=== PATIENT | female | born 2005 | race Caucasian/White ===

== ENCOUNTER 2024-06-21 15:24 | Emergency (ER) | payer OTHER, SELFPAY ==
[2024-06-21 15:28] VITALS: BP 127/84; PULSE 71; TEMP 36.8; O2SAT 98; BMI 38.3
--- NOTE | 2024-06-21 15:39 | XR_ITS ---
The [address] [address] Patient Name: GUERDA MULLER MRN: [id number] date: 2005 Sex: F Assigned Patient Location: ER Current Patient Location: ED.MAIN Accession/Order Number: [id number] Exam Date: 06/21/2024 15:43 Report Date: 06/21/2024 16:20 At the request of: SIMON WADDELL Procedure: XR thoracic spine 2V EXAMINATION: XR thoracic spine 2V HISTORY: Atraumatic pain COMPARISON: No relevant comparison available. FINDINGS: BONES: No significant spondylosis, scoliosis, fracture, or visible bony lesion. DISC SPACES: No significant disc height narrowing, subluxation, or endplate abnormality. PARASPINOUS: Negative. No paraspinous abnormality is seen. OTHER: Negative. XR/XR thoracic spine 2V IMPRESSION: 1. No abnormal or suspicious findings to account for patient's symptoms. Electronically authenticated by: BREANNA PITTMAN Date: 06/21/2024 16:20
--- NOTE | 2024-06-21 15:39 | ED_ITS ---
HPI HPI - Back Pain/Injury General Chief Complaint: Back Pain/Injury Stated Complaint: BACK PAIN Time Seen by Provider: 06/21/24 15:28 Source: patient Mode of arrival: walk-in Limitations: no limitations History of Present Illness HPI Narrative: 19-year-old female presents for upper back pain. It is near the midline but just to the right of it. She has had this for several days and she attributes it to the job that she is working at and has been for 2 months. She is a baker doughnut. There was no specific injury such as a fall. No weakness or numbness. Related Data Home Medications ?Medication ?Instructions ?Recorded ?Confirmed escitalopram oxalate 20 mg tablet 20 mg PO DAILY 06/21/24 06/21/24 (Lexapro) lamotrigine 200 mg tablet 200 mg PO DAILY 06/21/24 06/21/24 (Lamictal) methocarbamol 750 mg tablet mg 06/21/24 quetiapine 50 mg tablet (Seroquel) 50 mg PO DAILY 06/21/24 06/21/24 Previous Rx's ?Medication ?Instructions ?Recorded methocarbamol 500 mg tablet 500 mg PO Q8H PRN pain #20 tabs 06/21/24 Allergies Allergy/AdvReac Type Severity Reaction Status Date / Time No Known Drug Allergies Allergy Verified 06/21/24 15:30 Opioid HPI Opioid Management Most Recent Opioid Data: No Data to Display Review of Systems ROS Narrative A ten point review of systems is negative except as noted above. PFSH PFSH Social History Little interest or pleasure in doing things: not at all Feeling down, depressed, or hopeless: not at all Exam Narrative Exam Narrative: Nurses note and vital signs reviewed and patient is not hypoxic. General: The patient appears in no apparent distress. Skin: Warm, dry, no pallor noted. There is no rash noted. Head: Normocephalic, atraumatic Eye: Normal conjunctiva, no drainage Ears, Nose, Mouth, and Throat: oral mucosa is moist. Nares patent. Cardiovascular: Regular Rate and Rhythm Respiratory: Patient is in no distress, no accessory muscle use, lungs are clear to auscultation, no wheezing, rales or rhonchi Back: No tenderness in the cervical or lumbar spines. The patient has some tenderness in the upper thoracic region, immediately to the right of midline. No bruise or rash present. Right shoulder is nontender and has full range of motion. GI: Soft and nontender Musculoskeletal: The patient has no evidence of calf tenderness, no pitting edema, symmetrical pulses noted bilaterally Neurological: A&O, normal speech Psychiatric: Cooperative Constitutional Vital Signs, click to edit/add: Last Vital Signs Temp 98.3 F 06/21/24 15:28 Pulse 71 06/21/24 15:28 Resp 18 06/21/24 15:28 BP 127/84 06/21/24 15:28 Pulse Ox 98 06/21/24 15:28 O2 Del Method Room Air 06/21/24 15:28 Course Vital Signs Vital signs: Vital Signs Temperature 98.3 F 06/21/24 15:28 Pulse Rate 71 06/21/24 15:28 Respiratory Rate 18 06/21/24 15:28 Blood Pressure 127/84 06/21/24 15:28 Pulse Oximetry 98 06/21/24 15:28 Oxygen Delivery Method Room Air 06/21/24 15:28 Temperature 98.3 F 06/21/24 15:28 Pulse Rate 71 06/21/24 15:28 Respiratory Rate 18 06/21/24 15:28 Blood Pressure 127/84 06/21/24 15:28 Pulse Oximetry 98 06/21/24 15:28 Oxygen Delivery Method Room Air 06/21/24 15:28 MDM - Back Pain/Injury MDM Narrative Medical decision making narrative: X-rays per radiologist showed no acute findings. My clinical impression is that she has muscular pain and she will be treated symptomatically. Treatment diagnosis and follow-up were discussed with the patient. Differential Diagnosis Differential diagnosis: Likely other (Muscle pain, compression fracture) Imaging Data Thoracic x-ray: Radiologist's impression: ITS Impressions Thoracic Spine X-Ray 06/21/24 15:39 IMPRESSION: 1. No abnormal or suspicious findings to account for patient's symptoms. Electronically authenticated by: BREANNA PITTMAN Date: 06/21/2024 16:20 Discharge Plan Discharge Chief Complaint: Back Pain/Injury Clinical Impression: Back pain, thoracic Patient Disposition: Home, Self-Care Time of Disposition Decision: 16:34 Condition: Good Mode of Transportation: Private Vehicle Prescriptions / Home Meds: New methocarbamol 500 mg tablet 500 mg PO Q8H PRN (Reason: pain) Qty: 20 0RF No Action quetiapine [Seroquel] 50 mg tablet 50 mg PO DAILY escitalopram oxalate [Lexapro] 20 mg tablet 20 mg PO DAILY lamotrigine [Lamictal] 200 mg tablet 200 mg PO DAILY methocarbamol 750 mg tablet Print Language: [place] Instructions: Thoracic Pain (ED) Referrals: Kylee Segovia NP [Primary Care Provider] - 1 week
== END 2024-06-21 16:52 | disposition home or self-care (01) ==
PROVIDERS: Emergency Provider Emergency Medicine; PCP Nurse Practitioner Family
DX: M54.6 Pain in thoracic spine (principal)
CPT/HCPCS: 72070; 99283

== ENCOUNTER 2025-04-03 19:41 | Emergency (ER) | payer OTHER, SELFPAY ==
--- OUTSIDE RECORDS SUMMARY | 2024-10-20 12:30 | XMS_ITS ---
Author Organization [facility] Address [address] [place] [address] Care Team Providers Care Test Lab Technician Name Role Phone Sherman Halle Primary Care Provider REASON FOR VISIT MAT Encounters Encounter Location Date Provider Diagnosis [facility] [address] [facility] [place] [address] 10/20/2024 Halle Whitaker Plan Of Treatment No Information Progress Notes * GUERDA MULLER LDOB:[birth year] (20 yo F)Acc No.[id number]:10/20/2024 Patient: Joan WARE GUERDA Corona Provider: Claudio Whitaker CNP :2005 A ge:19 Y S ex:Female Date:10/20/2024 Address:[address] [place], [place] [id number] Subjective: * Chief Complaints: * 1 . MAT. * Medical History: Objective: * Vitals: Assessment: Plan: * Treatment: * Images: * Electronic signature of NATALY Kee on 04/03/2025 at 07:51 PM EDT Sign off status: Pending * Provider: Claudio Whitaker CNP Date: 10/20/2024 Generated for Printi ng/Facecig/eTransmitting on: 0 04/03/2025 07:51 PM EDT
--- OUTSIDE RECORDS SUMMARY | 2025-01-18 10:00 | XMS_ITS ---
Author Organization [facility] es Address [address] [place] [address] Care Team Providers Care Hand Packer/Packager Name Role Phone Halle Whitaker Primary Care Provider REASON FOR VISIT Patient is here today for a medication f/u. Her last OV was 09/2024. Medications Medication SIG (Take, Route, Frequency, Duration) Notes Start Date End Date Status Loratadine 10 MG TAKE 1 TABLET BY MOUTH EVERY DAY FOR 90 DAYS Orally Once a day; Duration: 30 days bridge script until she can see PCP Active hydrOXYzine Pamoate 25 MG 1 capsule Orally every 6 hours; Duration: 30 days As needed for anxiety 01/14/2023 Active Lexapro 10 MG 1 tablet Orally Once a day; Duration: 90 days 09/22/2024 Active QUEtiapine Fumarate 25 MG 1 tablet at bedtime Orally Once a day; Duration: 30 days 08/08/2023 Active lamoTRIgine 200 MG 1 tablet Orally Once a day; Duration: 30 days 12/24/2023 Active tiZANidine HCl 4 MG 1 tablet at bedtime as needed Orally at bedtime; Duration: 90 days Active Fluticasone Propionate 50 MCG/ACT 1 spray in each nostril Nasally Once a day; Duration: 90 day(s) Active Omeprazole 40 MG TAKE 1 CAPSULE BY MOUTH 30 MINUTES BEFORE MORNING MEAL EVERY DAY FOR 90 DAYS; Duration: 30 days Active Nexplanon Active Encounters Encounter Location Date Provider Diagnosis [facility] [address] [place] [address] 01/18/2025 Halle Whitaker Plan Of Treatment No Information Progress Notes * GUERDA MULLER LDOB:[birth year] (20 yo F)Acc No.[id number]:01/18/2025 Patient: GUERDA URBINA Provider: Claudio Whitaker CNP :2005 A ge:19 Y S ex:Female Date:01/18/2025 Address:[address] [place], [place] [id number] Subjective: * Chief Complaints: * 1 . Patient is here today for a medication f/u. Her last OV was 09/2024.. * Medical History: B IPOLAR, Pcos, Esophageal reflux, Anxiety, Insomnia, Seasonal allergies. * Medications: T halie Nexplanon , Taking Fluticasone Propionate 50 MCG/ACT Suspension 1 spray in each nostril Nasally Once a day , Taking Omeprazole 40 MG Capsule Delayed Release TAKE 1 CAPSULE BY MOUTH 30 MINUTES BEFORE MORNING MEAL EVERY DAY FOR 90 DAYS , Taking tiZANidine HCl 4 MG Tablet 1 tablet at bedtime as needed Orally at bedtime , Taking Loratadine 10 MG Tablet TAKE 1 TABLET BY MOUTH EVERY DAY FOR 90 DAYS Orally Once a day , Notes to Pharmacist: bridge script until she can see PCP, Taking QUEtiapine Fumarate 25 MG Tablet 1 tablet at bedtime Orally Once a day , Taking lamoTRIgine 200 MG Tablet 1 tablet Orally Once a day , Taking hydrOXYzine Pamoate 25 MG Capsule 1 capsule Orally every 6 hours As needed for anxiety, Taking Lexapro 10 MG Tablet 1 tablet Orally Once a day Objective: * Vitals: Assessment: Plan: * Treatment: * Images: * Electronic signature of NATALY Kee on 04/03/2025 at 07:51 PM EDT Sign off status: Pending * Provider: Claudio Whitaker CNP Date: 01/18/2025 Generated for Kojo benedict/Win/Nida on: 04/03/2025 07:51 PM EDT
--- OUTSIDE RECORDS SUMMARY | 2025-01-28 11:15 | XMS_ITS ---
Author Organization [facility] Address [address] [place] [address] Care Team Providers Care Computer Forensics Examiner Name Role Phone Halle Whitaker Primary Care Provider REASON FOR VISIT BH F/U Encounters Encounter Location Date Provider Diagnosis [address] [place] [address] 01/28/2025 Halle Whitaker Plan Of Treatment No Information Progress Notes * GUERDA MULLER LDOB:[birth year] (20 yo F)Acc No.[id number]:01/28/2025 Behavioral Health Patient: Joan WAREGUERDA Provider: Claudio Whitaker CNP :2005 A ge:19 Y S ex:Female Date:01/28/2025 Address:[address] [place], [place] [id number] Subjective: * Chief Complaints: * 1 . BH F/U. * Medical History: Objective: * Vitals: Assessment: Plan: * Treatment: * Images: * Electronic signature of NATALY Kee on 04/03/2025 at 07:52 PM EDT Sign off status: Pending * Provider: Claudio Whitaker CNP Date: 01/28/2025 Generated for Printi ng/Faxing/eTransmitting on: 0 04/03/2025 07:52 PM EDT
[2025-04-03 19:44] VITALS: BP 121/91; PULSE 82; TEMP 37.5; O2SAT 96; BMI 42.5
[2025-04-03 19:49] VITALS: O2SAT 96
--- OUTSIDE RECORDS SUMMARY | 2025-04-03 19:51 | XMS_ITS | CCD ---
Author Organization [facility] [employer] Care Team Providers Care Supervisor Sleeping Bag Department Name Role Phone ESTELA MIMS Primary Care Unavailable ESTELA MIMS Admitting Unavailable ESTELA MIMS Attending Unavailable ESTELA MIMS Consulting Unavailable DIANNA, DR ZALDIVAR Attending Unavailable DIANNA, DR ZALDIVAR Consulting Unavailable DIANNA, DR ZALDIVAR Admitting Unavailable ESTELA MIMS Primary Care Unavailable ESTELA MIMS Primary Care Unavailable DIANNA, DR ZALDIVAR Attending Unavailable DIANNA, DR ZALDIVAR Admitting Unavailable PAY, DR FARFAN Attending Unavailable ESTELA MIMS Primary Care Unavailable PAY, DR FARFAN Admitting Unavailable Austin Katz Unavailable [facility] Primary Care Provider DO Mia Arrieta Emergency Provider [facility] Primary Care Provider 1( [phone] DO Ashley Morales Emergency Provider MD Ramiro Castro Admit Provider MD Ramiro Castro Attending Provider MIA JARA Primary Care Physician [facility] Primary Care Provider DO Manny Brooke Emergency Provider [facility] Primary Care Provider 1( [phone] DO Manny Brooke Emergency Provider DO Mia Arrieta Emergency Provider MD Maurilio Hackett Admit Provider MD Maurilio Hackett Attending Provider FRANCI ESCALANTE Primary Care Physician [phone] Tenzin Roberts Attending Unavailable Tenzin Roberts Attending Unavailable [facility] Primary Care Provider MD Jose Márquez Jr Emergency Provider DO David Nicole Emergency Provider Karen espino [facility] Primary Care Provider SEVERO Cohen Emergency Provider Unallocated MD [place] Provider Primary Care Provi dominic Elmo Marshall DO Unavailable [phone] Lorene Escalante DO Unavailable [phone] ARCENIO SHAH Attending Unavailable ELMO MARSHALL Attending Unavailable Elmo Marshall DO Unavailable [phone] [facility] Primary Care Provider Nic Whittaker APRN Emergency Provider David Nicole Attending Unavailable [facility] Primary Care Unavaila [facility] David Nicole Admitting Unavailable Primitivo Cohen Admitting Unavailable Primitivo Cohen Attending Unavailable [facility] Nic Sandoval Admitting Unavailable Nic Whittaker Attending Unavailable Medications Current Medications Medication Drug Class(es) Dates Sig (Normalized) Sig (Original) [id number] 200 actuat albuterol 0.09 mg/actuat metered dose inhaler (4 sources) beta2-Adrenergic Agonist Start: 04-17-2023 take 2 puff(s) by inhalation every four hours for wheezing albuterol HFA 90 mcg/act inhaler Indications: COVID-19 Inhale 2 puffs every 4 (four) hours if needed for wheezing. 18 g 11 04/17/2023 Active amoxicillin 875 mg / clavulanate 125 mg oral tablet (1 source) Penicillin-class Antibacterial Start: 12-13-2021 take 1 tablet by mouth every twelve hours Amoxicillin-Pot Clavulanate 875-125 MG 1 tablet Orally every 12 hrs for 10 day(s) December, Active escitalopram 10 mg oral tablet (19 sources) Serotonin Reuptake Inhibitor Start: 02-17-2024 take 1 tablet by mouth once daily Escitalopram Oxalate 10 mg tablet Active 10 MG PO Daily February 17, 2024 12:00am Start: 06-10-2023 End: 12-29-2023 take 2 tablets by mouth once daily Escitalopram Oxalate 10 mg tablet Discontinued 20 MG PO Daily June 10, 2023 4:29pm December 29, 2023 10:11pm Start: 06-10-2023 End: 12-29-2023 take 20 mg by mouth once daily Escitalopram Oxalate Di scontinued 20 MG PO Daily June 10, 2023 3:29pm December 29, 2023 9:11pm Start: 12-20-2022 End: 06-10-2023 take 1 tablet by mouth once daily Escitalopram Oxalate 10 mg Tablet Discontinued 10 MG PO Daily December 20, 2022 12:00am June 10, 2023 4:29pm take 1 tablet by robyn th once daily escitalopram (Lexapro) 20 MG tablet TAKE 1 TABLET BY MOUTH EVERY DAY FOR 30 DAYS Active famotidine 20 mg oral tablet (1 source) Histamine-2 Receptor Antagonist Start: 07-13-2023 End: 07-23-2023 take 1 tablet by mouth twice daily Pepcid 20 mg Tab 20 mg = 1 tab(s), Oral, BID, X 10 day(s), # 20 tab(s), Refills(s) 0, Pharmacy: [facility]/pharmacy #[id number], 160, cm, 07/12/23 23:02:00 EST, Height/Length Dosing, 115.5, kg, 07/12/23 23:02:00 EST, Weight Dosing Start Date: 07/13/23 Stop Date: 07/23/23 Status: Ordered fluticasone propionate 0.05 mg/actuat metered dose nasal spray (9 sources) Corticosteroid Start: 02-02-2022 Fluticasone Propionate Active INTRANASAL February 02, 2022 10:04am Start: 02-02-2022 End: 06-10-2023 Fluticasone Propionate 50 mc g/actuation spray,suspension Discontinued 1 SPRAY INTRANASAL Daily February 02, 2022 12:00am June 10, 2023 4:29pm hydrOXYzine pamoate 25 mg oral capsule (6 sources) Antihistamine Start: 12-29-2023 take 1 capsule by mouth every six hours as needed for nausea and vomiting Hydroxyzine Pamoate 25 mg capsule Active 25 MG PO Every 6 hours as needed for nausea and vomiting December 29, 2023 12:00am Start: 01-14-2023 End: 10-30-2024 hydrOXYzine pamoate (Vistari l) 25 MG capsule 1 drop 01/14/2023 10/30/2024 Discontinued lamoTRIgine 100 mg oral tablet (20 sources) Mood Stabilizer, Anti-epileptic Agent Start: 12-29-2023 take 1 tablet by mouth once daily Lamotrigine (Lamictal) 100 mg tablet Active 150 MG PO Daily December 29, 2023 12:00am FreeTextSi tablet Orally Once a day; Note: Source Status: Taking; Provider: Earnest Avila ( ) Start: 12-16-2022 Lamotrigine Ac tive MG TABLET December 16, 2022 12:00am Start: 02-02-2022 Lamotrigine Ac tive MG TABLET February 02, 2022 10:04am Start: 08-22-2020 End: 12-29-2023 take 1 tablet by mouth at bedtime Lamotrigine 200 mg tablet Discontinued 200 MG PO Bedtime December 16, 2022 12:00am December 29, 2023 10:11pm take 1 tablet by robyn th every twenty-four hours LaMICtal 100 MG 1 tablet Orally Once a day Active lithium carbonate 450 mg extended release oral tablet (2 sources) Start: 08-22-2020 take 1 tablet by mouth once daily in the morning, then take 2 tablets by mouth once daily lithium 450 mg oral tablet, extended release See Instructions, 1 daily am and 2 daily supper, # 270 tab(s), Refills(s) 3, Pharmacy: [facility]/pharmacy #[id number], 160, cm, 08/22/20 15:09:00 EST, Height/Length Dosing, 95.5, kg, 08/22/20 15:09:00 EST, Weight Dosing Start Date: 08/22/20 Status: Ordered loratadine 10 mg oral tablet (9 sources) Start: 02-02-2022 Loratadine Act yessenia MG TABLET February 02, 2022 10:04am Start: 02-02-2022 End: 12-29-2023 take 1 tablet by mouth once daily as needed Loratadine 10 mg tablet Discontinued 10 MG PO Daily as needed for Allergic Symptoms February 02, 2022 12:00am December 29, 2023 10:11pm omeprazole 40 mg delayed release oral capsule (15 sources) Proton Pump Inhibitor Start: 06-09-2024 take 1 capsule by mouth once daily Omeprazole 40 mg capsule,delayed release(DR/EC) Active 40 MG PO Daily June 09, 2024 1:00am Start: 06-10-2023 End: 12-29-2023 take 20 mg by mouth once daily Omeprazole Discontinued 20 MG PO Daily June 10, 2023 12:00am December 29, 2023 9:11pm Start: 02-02-2022 Omeprazole Act yessenia MG February 02, 2022 10:04am Start: 02-02-2022 End: 06-10-2023 take 1 capsule by mouth once daily Omeprazole 40 mg capsule,delayed release(DR/EC) Discontinued 40 MG PO Daily February 02, 2022 12:00am June 10, 2023 4:58pm QUEtiapine 100 mg oral tablet (20 sources) Atypical Antipsychotic Start: 12-29-2023 take 1 tablet by mouth once daily at bedtime Quetiapine (Seroquel) 100 mg tablet Active 100 MG PO Daily at bedtime December 29, 2023 12:00am FreeTextSi tablet at bedtime Orally Once a day; Note: Source Status: Taking; Provider: Earnest Avila ( ) Start: 12-16-2022 End: 12-20-2022 take 1 tablet by mouth at bedtime Quetiapine 50 mg tablet Discontinued 50 MG PO Bedtime December 16, 2022 12:00am December 20, 2022 10:27am Start: 02-02-2022 End: 12-16-2022 Quetiapine 300 mg tablet Discontinued MG TABLET February 02, 2022 12:00am December 16, 2022 5:05pm Start: 02-02-2022 End: 12-16-2022 Quetiapine Discontinued MG T ABLET February 01, 2022 11:00pm December 16, 2022 4:05pm Start: 08-22-2020 take 2 tablets by mo ut at bedtime SEROquel 50 mg Tab 100 mg = 2 tab(s), Oral, Bedtime, # 180 tab(s), Refills(s) 1, Pharmacy: [facility]/pharmacy #[id number], 160, cm, 08/22/20 15:09:00 EST, Height/Length Dosing, 95.5, kg, 08/22/20 15:09:00 EST, Weight Dosing Start Date: 08/22/20 Status: Ordered take 1 tablet by robyn th every twenty-four hours SEROquel 100 MG 1 tablet at bedtime Orally Once a day Active Zofran ODT 4 mg Tab-Dis (1 source) Start: 07-13-2023 take 1 tablet by mouth every eight hours as needed for nausea Zofran ODT 4 mg Tab-Dis 4 mg = 1 tab(s), Oral, q8hr, PRN Nausea/Vomiting, # 20 tab(s), Refills(s) 0, Pharmacy: [facility]/pharmacy #[id number], 160, cm, 07/12/23 23:02:00 EST, Height/Length Dosing, 115.5, kg, 07/12/23 23:02:00 EST, Weight Dosing Start Date: 07/13/23 Status: Ordered Completed/Discontinued Medications Medication Drug Class(es) Dates Sig (Normalized) Sig (Original) amoxicillin 875 mg oral tablet (4 sources) Penicillin-class Antibacterial Start: 12-29-2023 End: 02-17-2024 take 1 tablet by mouth twice daily Amoxicillin 875 mg tablet Discontinued 875 MG PO Twice daily 23 05December 29, 2023 12:00am February 17, 2024 7:13pm ARIPiprazole 5 mg oral tablet (5 sources) Atypical Antipsychotic Start: 06-14-2023 End: 12-29-2023 take 1 tablet by mouth once daily at bedtime Aripiprazole 5 mg Tablet Discontinued 5 MG PO Daily at bedtime June 14, 2023 1:00am December 29, 2023 10:11pm benzonatate 100 mg oral capsule (4 sources) Non-narcotic Antitussive Start: 12-29-2023 End: 02-17-2024 take 1 capsule by mouth three times daily as needed for cough Benzonatate 100 mg capsule Discontinued 100 MG PO Three times daily as needed for cough December 29, 2023 12:00am February 17, 2024 7:13pm cephalexin 500 mg oral capsule (10 sources) Cephalosporin Antibacterial Start: 08-09-2023 End: 12-29-2023 take 1 capsule by mouth twice daily Cephalexin 500 mg capsule Discontinued 500 MG PO Twice daily 14 August 09, 2023 1:00am December 29, 2023 10:11pm Start: 06-14-2023 End: 12-29-2023 take 1 capsule by mouth every twelve hours Cephalexin 500 mg Capsule Discontinued 500 MG PO Every 12 hours 10 June 14, 2023 1:00am December 29, 2023 10:11pm cholecalciferol 0.025 mg oral tablet (5 sources) Vitamin D Start: 06-14-2023 End: 12-29-2023 take 1 tablet by mouth once daily Cholecalciferol (Vitamin D3) 25 mcg (1,000 unit) Tablet Discontinued 50 MCG PO Daily 60 June 14, 2023 1:00am December 29, 2023 10:11pm cyclobenzaprine hydrochloride 5 mg oral tablet (7 sources) Muscle Relaxant Start: 05-16-2023 End: 06-10-2023 take 1 tablet by mouth every eight hours Cyclobenzaprine 5 mg tablet Discontinued 5 MG PO Q8H May 16, 2023 12:00am June 10, 2023 3:11pm dicyclomine hydrochloride 20 mg oral tablet (9 sources) Anticholinergic Start: 02-02-2022 End: 12-16-2022 take 1 tablet by mouth three times daily as needed for pain Dicyclomine 20 mg tablet Discontinued 20 MG PO Three times daily as needed for pain February 02, 2022 12:00am December 16, 2022 5:05pm ibuprofen 600 mg oral tablet (11 sources) Nonsteroidal Anti-inflammatory Drug Start: 12-29-2023 End: 01-09-2025 take 1 tablet by mouth every eight hours as needed for pain Ibuprofen 600 mg tablet Discontinued 600 MG PO Q8H as needed for pain December 29, 2023 12:00am January 09, 2025 2:17pm Start: 05-16-2023 End: 06-10-2023 take 1 tablet by mouth every eight hours as needed for pain Ibuprofen 800 mg tablet Discontinued 800 MG PO Q8H as needed for pain May 16, 2023 12:00am June 10, 2023 4:29pm ketorolac tromethamine 10 mg oral tablet (5 sources) Nonsteroidal Anti-inflammatory Drug, Cyclooxygenase Inhibitor Start: 08-09-2023 End: 12-29-2023 take 1 tablet by mouth every eight hours as needed for pain Ketorolac 10 mg tablet Discontinued 10 MG PO Q8H as needed for pain August 09, 2023 1:00am December 29, 2023 10:11pm lidocaine 0.05 mg/mg medicated patch (9 sources) Antiarrhythmic, Amide Local Anesthetic Start: 06-09-2024 End: 01-09-2025 apply 1 dose topically every twenty-four hours Lidocaine 5 % adhesive patch,medicated Discontinued 1 PATCH TOPICAL Q24H June 09, 2024 1:00am January 09, 2025 2:17pm leave on most painful area for up to 12 hrs Start: 05-16-2023 End: 06-10-2023 apply 1 dose topically once daily Lidocaine (Lidoderm) 5 % adhesive patch,medicated Discontinued 1 PATCH TOPICAL Daily May 16, 2023 12:00am June 10, 2023 4:29pm leave on most painful area for up to 12 hrs loperamide hydrochloride 2 mg oral capsule (3 sources) Opioid Agonist Start: 02-18-2024 End: 06-09-2024 take 1 capsule by mouth four times daily as needed Loperamide (Imodium A-D) 2 mg capsule Discontinued 2 MG PO Four times daily as needed for loose stool 21 12February 18, 2024 12:00am June 09, 2024 7:57pm methocarbamol 750 mg oral tablet (2 sources) Muscle Relaxant Start: 06-09-2024 End: 01-09-2025 take 1 tablet by mouth three times daily Methocarbamol 750 mg tablet Discontinued 750 MG PO Three times daily June 09, 2024 1:00am January 09, 2025 2:17pm methylPREDNISolone 4 mg oral tablet (2 sources) Corticosteroid Start: 06-09-2024 End: 01-09-2025 take 1 tablet by mouth once Methylprednisolone (Medrol (Epifanio)) 4 mg tablets,dose pack Discontinued 0 PO .COMPLEX June 09, 2024 1:00am January 09, 2025 2:17pm orally per package directions nitrofurantoin, macrocrystals 25 mg / nitrofurantoin, monohydrate 75 mg oral capsule (2 sources) Nitrofuran Antibacterial Start: 12-22-2024 End: 12-29-2024 take 1 capsule by mouth in the morning nitrofurantoin, macrocrystal-monohydr ate, (Macrobid) 100 MG capsule Indications: Acute cystitis without hematuria Take 1 capsule (100 mg) by mouth in the morning and 1 capsule (100 mg) before bedtime. Do all this for 7 days. 14 capsule 12/22/2024 12/29/2024 OLANZapine 5 mg oral tablet (5 sources) Atypical Antipsychotic Start: 06-14-2023 End: 12-29-2023 take 1 tablet by mouth every six hours as needed Olanzapine 5 mg Tablet Discontinued 5 MG PO Q6H as needed for Agitation June 14, 2023 1:00am December 29, 2023 10:11pm Omeprazole 20 mg Tablet,Disintegrat, Delay Rel (1 source) Start: 06-10-2023 End: 12-29-2023 take 1 tablet by mouth once daily Omeprazole 20 mg Tablet,Disintegrat, Delay Rel Discontinued 20 MG PO Daily June 10, 2023 1:00am December 29, 2023 10:11pm ondansetron 4 mg oral tablet (5 sources) Serotonin-3 Receptor Antagonist Start: 08-09-2023 End: 12-29-2023 Ondansetron Hcl 4 mg tablet Discontinued 4 MG PO every 6 to 8 hours as needed for nausea and vomiting August 09, 2023 1:00am December 29, 2023 10:11pm 24 hr paliperidone 3 mg extended release oral tablet (7 sources) Atypical Antipsychotic Start: 12-20-2022 End: 06-10-2023 take 1 tablet by mouth once daily at bedtime Paliperidone 3 mg Tablet Extended Release 24 Hr Discontinued 3 MG PO Daily at bedtime December 20, 2022 12:00am June 10, 2023 1:25pm phenazopyridine hydrochloride 200 mg delayed release oral tablet (2 sources) Start: 12-22-2024 End: 12-24-2024 take 1 tablet by mouth in the morning, then take 1 tablet by mouth in the evening, then take 1 tablet by mouth at bedtime phenazopyridine (Pyridium) 200 MG tablet Indications: Acute cystitis without hematuria Take 1 tablet (200 mg) by mouth in the morning and 1 tablet (200 mg) in the evening and 1 tablet (200 mg) before bedtime. Do all this for 2 days. 6 tablet 12/22/2024 12/24/2024 tamsulosin hydrochloride 0.4 mg oral capsule (5 sources) alpha-Adrenergic Faby Start: 08-09-2023 End: 12-29-2023 take 1 capsule by mouth once daily Tamsulosin (Flomax) 0.4 mg capsule Discontinued 0.4 MG PO Daily August 09, 2023 1:00am December 29, 2023 10:11pm tiZANidine 4 mg oral tablet (2 sources) Central alpha-2 Adrenergic Agonist Start: 06-09-2024 End: 01-09-2025 Tizanidine 4 mg tablet Discontinued 4 MG PO As Directed as needed for muscle spasticity June 09, 2024 1:00am January 09, 2025 2:18pm traZODone hydrochloride 150 mg oral tablet (20 sources) Serotonin Reuptake Inhibitor Start: 06-10-2023 End: 06-10-2023 Trazodone Discontinued MG TABLET June 10, 2023 12:00am June 10, 2023 3:29pm Start: 12-20-2022 End: 10-30-2024 Trazodone 150 mg Tablet Disc ontinued MG TABLET June 10, 2023 1:00am June 10, 2023 4:29pm Start: 12-16-2022 End: 12-20-2022 take 1 tablet by mouth at bedtime Trazodone 50 mg tablet Discontinued 50 MG PO Bedtime December 16, 2022 12:00am December 20, 2022 10:34am Problems Active Problems Problem Classification Problem Date Documented Da te Episodic/Chronic Abdominal pain (13 sources) Abdominal pain; Translations: [Unspecified abdominal pain] Onset: 07-13-2023 02-02-2022 Episodic Allergic reactions (1 source) Allergic disposition; Translations: [Allergy, unspecified, initial encounter] Onset: 12-29-2022 Episodic Calculus of urinary tract (5 sources) Kidney stone; Translations: [Calculus of kidney] 08-09-2023 Episodic Conditions associated with dizziness or vertigo (1 source) Dizziness and giddiness; Translations: [Dizziness and giddiness] Onset: 07-13-2023 Episodic Genitourinary symptoms and ill-defined conditions (6 sources) Unspecified symptoms and signs involving the genitourinary system; Translations: [Dysuria] Onset: 06-18-2021 Episodic Intestinal infection (2 sources) Viral gastroenteritis; Translations: [Viral intestinal infection, unspecified] 10-30-2024 Episodic Menstrual disorders (2 sources) Dysmenorrhea, unspecified; Translations: [Irregular menstruation, unspecified] Onset: 10-24-2020 Chronic Mood disorders (10 sources) Moderate depressed bipolar I disorder; Translations: [Bipolar I disorder] 10-05-2019 Chronic Other and unspecified benign neoplasm (3 sources) Hemangioma; Translations: [Hemangioma unspecified site] 02-18-2024 Episodic Other connective tissue disease (1 source) Myalgia, unspecified site; Translations: [MYALGIA UNSPECIFIED SITE] Onset: 06-23-2021 Episodic Other endocrine disorders (3 sources) Hypoglycemia; Translations: [Hypoglycemia, unspecified] 02-17-2024 Chronic Other gastrointestinal disorders (8 sources) Diarrhea; Translations: [Diarrhea, unspecified] 08-09-2023 Episodic Other nutritional; endocrine; and metabolic disorders (2 sources) Weight gain 10-14-2019 Episodic Other screening for suspected conditions (not mental disorders or infectious disease) (2 sources) Encounter for observation for other suspected diseases and conditions ruled out; Translations: [Encounter for observation for other suspected diseases and conditions ruled out] Onset: 02-06-2023 Episodic Other upper respiratory infections (4 sources) Sinusitis; Translations: [Chronic sinusitis, unspecified] 12-29-2023 Chronic Other upper respiratory infections (6 sources) Acute pharyngitis, unspecified; Translations: [Streptococcal pharyngitis] Onset: 12-13-2021 Resolved: 12-13-2021 Episodic Residual codes; unclassified (4 sources) Procedure and treatment not carried out due to patient leaving prior to being seen by health care provider; Translations: [PROC AND TX NOT CARRIED OUT PT LEAVE] Onset: 06-14-2021 Episodic Suicide and intentional self-inflicted injury (15 sources) Suicidal thoughts; Translations: [Suicidal ideations] 12-17-2022 Episodic Urinary tract infections (7 sources) Urinary tract infectious disease; Translations: [Urinary tract infection, site not specified] 08-09-2023 Episodic Past or Other Problems Problem Classification Problem Date Documented Da te Episodic/Chronic Immunizations and screening for infectious disease (1 source) Contact with and (suspected) exposure to other viral communicable diseases Onset: 12-13-2021 Resolved: 12-13-2021 Episodic Nausea and vomiting (4 sources) Nausea; Translations: [NAUSEA] Onset: 10-19-2020 Episodic Spondylosis; intervertebral disc disorders; other back problems (10 sources) Backache; Translations: [Dorsalgia, unspecified] Onset: 06-09-2024 05-16-2023 Episodic Results Test Name Value Interpretation Reference Range Facility Alanine aminotransferase [En zymatic activity/volume] in Serum or PlasmaOrdered By: Nic Whittaker on 01-09-2025 ALT [Catalytic activity/Vol] Alanine aminotransferase [Enzymatic activity/volume] in Serum or Plasma 7-52 [facility] Albumin [Mass/volume] in Ser um or Plasma by Bromocresol green (BCG) dye binding methoOrdered By: Nic Whittaker on 01-09-2025 Albumin BCG dye [Mass/Vol] Albumin [Mass/volume] in Serum or Plasma by Bromocresol green (BCG) dye binding metho 3.5-5.7 [facility] Alkaline phosphatase [Enzyma tic activity/volume] in Serum or PlasmaOrdered By: Nic Whittaker on 01-09-2025 ALP [Catalytic activity/Vol] Alkaline phosphatase [Enzymatic activity/volume] in Serum or Plasma High 34-104 [facility] Appearance of UrineOrdered B y: Nic Whittaker on 01-09-2025 Appearance (U) Urine appearance [facility] Aspartate aminotransferase [ Enzymatic activity/volume] in Serum or PlasmaOrdered By: Nic Whittaker on 01-09-2025 AST [Catalytic activity/Vol] Aspartate aminotransferase [Enzymatic activity/volume] in Serum or Plasma Low 13-39 [facility] Basophils Auto (Bld) [#/Vol] Ordered By: Nic Whittaker on 01-09-2025 Basophils (Bld) [#/Vol] Automated basoph il count 0.0-0.2 [facility] Basophils/100 WBC Auto (Bld) Ordered By: Nic Whittaker on 01-09-2025 Basophils/100 WBC (Bld) Automated basophil % . [facility] Bilirubin Test strip Ql (U)O rdered By: Nic Whittaker on 01-09-2025 Bilirubin Ql (U) Bilirubin.total [Presence] in Urine by Test strip Negative [facility] Bilirubin.direct [Mass/volum e] in Serum or PlasmaOrdered By: Nic Whittaker on 01-09-2025 Bilirubin.direct [Mass/Vol] Bilirubin.direct [Mass/volume] in Serum or Plasma 0.03-0.18 [facility] Bilirubin.total [Mass/volume ] in Serum or PlasmaOrdered By: Nic Whittaker on 01-09-2025 Bilirubin [Mass/Vol] Bilirubin.total [Mass/volume] in Serum or Plasma 0.3-1.[address] [facility] CT abdomen pelvis w conon CT abdomen pelvis w con [facility] Main [place] [address] [place] [address] CT Scan Report Signed Patient: Lizzie Muller MR#: [id number] : 2005 Acct:[id number] Age/Sex: 19 / F ADM Date: 01/09/25 Loc: ER Room: Type: [facility] ER Attending Dr: Copies to: Nic Whittaker APRN Ordering Provider: Nic Whittaker APRN Date of Service: 01/09/25 CT/CT abdomen pelvis w con: Abdominal Pain CT ABDOMEN AND PELVIS WITH INTRAVENOUS CONTRAST: CLINICAL HISTORY: Left-sided abdominal pain for one week, worse with bowel movements COMPARISON: 02/17/2024 TECHNIQUE: Spiral images were obtained through the abdomen and pelvis following the administration of intravenous contrast. This CT exam was performed using one or more following dose reduction techniques: Automated exposure control, adjustment of the mA and/or kV according to patient size, or use of iterative reconstruction technique. FINDINGS: Lung Bases: [No focal opacity] Organs:Liver, spleen, adrenals, kidneys, gallbladder and pancreas are unremarkable.[ GI: Mild retained stool. No bowel obstruction. Appendix is normal.[ Pelvis:[Uterus and adnexa are unremarkable. Bladder unremarkable.] Peritoneum/Retroperit oneum:No free air or free fluid. No suspicious adenopathy. Aorta unremarkable caliber.[ Abd wall/Bones:No suspicious osseous lesions.[ CT/CT abdomen pelvis w con IMPRESSION: Negative acute inflammatory process or bowel obstruction Impression dictated by: Moody Guzmán M.D. 01/09/2025 4:25 PM Dictation Location: [place] [address] Transcribed By: CHEPE 01/09/25 1625 Dictated By: Moody Guzmán MD 01/09/25 1620 Signed By: 01/09/25 1625 Normal [facility] Calcium [Mass/volume] in Ser um or PlasmaOrdered By: Nic Whittaker on 01-09-2025 Calcium [Mass/Vol] Calcium [Mass/volume ] in Serum or Plasma 8.6-10.3 [facility] Carbon dioxide, total [Moles /volume] in Serum or PlasmaOrdered By: Nic Whittaker on 01-09-2025 CO2 [Moles/Vol] Carbon dioxide, tota l [Moles/volume] in Serum or Plasma 21.0-31.0 [facility] Chloride [Moles/volume] in S katie or PlasmaOrdered By: Nic Whittaker on 01-09-2025 Chloride [Moles/Vol] Chloride [Moles/volume] in Serum or Plasma 98-107 [facility] Color Auto (U)Ordered By: Kale Whittaker on 01-09-2025 Color (U) Color of Urine by Auto Yellow [facility] Complete Blood Count Auto Di ffon 01-09-2025 Basophils (Bld) [#/Vol] 0.1 10*3/uL Normal 0.0-0.2 [facility] Comment on above: Result Comment: PERF ORMED BY: [place] [address] PATHOLOGIST SALES REPRESENTATIVE [employer] REYNA SCALES M.D. Performed By: #### C BC #### [facility] [address] [place] [address] [place] Basophils/100 WBC (Bld) 1.1 % Normal . [facility] Comment on above: Performed By: #### C BC #### [facility] [address] [place] [address] Eosinophils (Bld) [#/Vol] 0.4 10*3/uL Normal 0.0-0.45 [facility] Comment on above: Performed By: #### C BC #### [address] Eosinophils/100 WBC (Bld) 4.0 % Normal . [facility] Comment on above: Performed By: #### C BC #### [address] Erythrocyte distribution width (RBC) [Ratio] 13.7 % Normal 11.9-15.3 [facility] Comment on above: Performed By: #### C BC #### [address] Hematocrit (Bld) [Volume fraction] 40.8 % Normal 34.0-46.4 [facility] Comment on above: Performed By: #### C BC #### [address] Hemoglobin (Bld) [Mass/Vol] 13.9 g/dL Normal 11.8-15.4 [facility] Comment on above: Performed By: #### C BC #### [address] Lymphocytes (Bld) [#/Vol] 1.9 10*3/uL Normal 1.00-4.8 [facility] Comment on above: Performed By: #### C BC #### [address] Lymphocytes/100 WBC (Bld) 20.2 % Normal . [facility] Comment on above: Performed By: #### C BC #### [address] MCH (RBC) [Entitic mass] 27.9 pg Normal 24.7-34.3 [facility] Comment on above: Performed By: #### C BC #### [address] MCV (RBC) [Entitic vol] 82.1 fL Normal 80-100 [facility] Comment on above: Performed By: #### C BC #### [address] [place] [address] [place] Mean Corpuscular HGB Conc 34.0 g/dL Normal 32.0-35.0 [facility] Comment on above: Performed By: #### C BC #### [address] Monocytes (Bld) [#/Vol] 0.7 10*3/uL Normal 0.0-0.8 [facility] Comment on above: Performed By: #### C BC #### [address] Monocytes/100 WBC (Bld) 18.93 % Normal 0.00-20.00 [facility] Comment on above: Performed By: #### C BC #### [address] Monocytes/100 WBC (Bld) 7.0 % Normal . [facility] Comment on above: Performed By: #### C BC #### [address] Neutrophils (Bld) [#/Vol] 6.5 10*3/uL Normal 1.8-7.7 [facility] Comment on above: Performed By: #### C BC #### [address] Neutrophils/100 WBC (Bld) 67.7 % Normal . [facility] Comment on above: Performed By: #### C BC #### [address] NRBC% 0.0 /100{WBC} Normal 0-0.5 [facility] Comment on above: Performed By: #### C BC #### [address] Platelet mean volume (Bld) [Entitic vol] 8.6 fL Normal 6.3-10.7 [facility] Comment on above: Performed By: #### C BC #### [address] Platelets (Bld) [#/Vol] 307 10*3/uL Normal 150-450 [facility] Comment on above: Performed By: #### C BC #### [facility] [address] RBC (Bld) [#/Vol] 4.96 10*6/uL Normal 3.60-5.00 [facility] Comment on above: Performed By: #### C BC #### [facility] [address] WBC (Bld) [#/Vol] 9.6 10*3/uL Normal 3.8-11.6 [facility] Comment on above: Performed By: #### C BC #### [address] Comprehensive Metabolic Pane sasha 01-09-2025 Albumin [Mass/Vol] 4.0 g/dL Normal 3.5-5.7 [facility] Comment on above: Performed By: #### L IPASE, HEPATIC, CMP ####[address] Albumin/Globulin [Mass ratio] 1.3 {ratio} Normal [facility] Comment on above: Performed By: #### L IPASE, HEPATIC, CMP ####[address] ALP [Catalytic activity/Vol] 106 U/L High 34-104 [facility] Comment on above: Performed By: #### L IPASE, HEPATIC, CMP ####[address] ALT [Catalytic activity/Vol] 13 U/L Normal 7-52 [facility] Comment on above: Performed By: #### L IPASE, HEPATIC, CMP ####[address] Anion gap [Moles/Vol] 10.3 mmol/L Normal 6.0-15.0 [facility] Comment on above: Performed By: #### L IPASE, HEPATIC, CMP ####[address] AST [Catalytic activity/Vol] 12 U/L Low 13-39 [facility] Comment on above: Performed By: #### L IPASE, HEPATIC, CMP ####[address] Bilirubin [Mass/Vol] 0.5 mg/dL Normal 0.3-1.0 [facility] Comment on above: Performed By: #### L IPASE, HEPATIC, CMP ####[address] Calcium [Mass/Vol] 8.7 mg/dL Normal 8.6-10.3 [facility] Comment on above: Performed By: #### L IPASE, HEPATIC, CMP ####[address] Chloride [Moles/Vol] 107 mmol/L Normal 98-107 [facility] Comment on above: Performed By: #### L IPASE, HEPATIC, CMP ####[address] CO2 [Moles/Vol] 22.5 mmol/L Normal 21.0-31.0 [facility] Comment on above: Performed By: #### L IPASE, HEPATIC, CMP ####[address] Creatinine [Mass/Vol] 0.61 mg/dL Normal 0.60-1.20 [facility] Comment on above: Performed By: #### L IPASE, HEPATIC, CMP ####[address] Creatinine Clr Calc Pharmacy 172.18 Normal [facility] Comment on above: Performed By: #### L IPASE, HEPATIC, CMP ####[address] GFR/1.73 sq M.predicted MDRD (S/P/Bld) [Vol rate/Area] mL/min/{1.73_m2} Normal [facility] Comment on above: Performed By: #### L IPASE, HEPATIC, CMP ####[place] [id number] [place] [id number] [facility] Globulin (S) [Mass/Vol] 3.2 g/dL Normal T [facility] Comment on above: Performed By: #### L IPASE, HEPATIC, CMP ####[place] [id number] [facility] Glucose [Mass/Vol] 98 mg/dL Normal 70-100 [facility] Comment on above: Result Comment: [facility] Glucose Reference Range is dependent on time and content of last meal. Glucose of more than 200 mg/dL in a nonstressed, ambulatory subject supports the diagnosis of Diabetes Mellitus. ADA recommended reference range Performed By: #### L IPASE, HEPATIC, CMP ####[place] [id number] [facility] Potassium [Moles/Vol] 3.8 mmol/L Normal 3.5-5.1 [facility] Comment on above: Performed By: #### L IPASE, HEPATIC, CMP ####[place] [id number] [facility] Protein [Mass/Vol] 7.2 g/dL Normal 6.4-8.9 [facility] Comment on above: Performed By: #### L IPASE, HEPATIC, CMP ####[place] [id number] [facility] Sodium [Moles/Vol] 136 mmol/L Normal 136-145 [facility] Comment on above: Performed By: #### L IPASE, HEPATIC, CMP ####[place] [id number] [facility] Urea nitrogen [Mass/Vol] 12 mg/dL Normal 7-25 [facility] Comment on above: Performed By: #### L IPASE, HEPATIC, CMP ####[place] [id number] [facility] Creatinine [Mass/volume] in Serum or PlasmaOrdered By: Nic Whittaker on 01-09-2025 Creatinine [Mass/Vol] Creatinine [Mass/volume] in Serum or Plasma 0.60-1.20 [facility] Eosinophils Auto (Bld) [#/Vo l]Ordered By: Nic Whittaker on 01-09-2025 Eosinophils (Bld) [#/Vol] Automated eosinophil count 0.0-0.45 [facility] Eosinophils/100 WBC Auto (Bl d)Ordered By: Nic Whittaker on 01-09-2025 Eosinophils/100 WBC (Bld) Automated eosinophil % . [facility] Erythrocyte distribution wid th Auto (RBC) [Ratio]Ordered By: Nic Whittaker on 01-09-2025 Erythrocyte distribution width (RBC) [Ratio] Erythrocyte distribution width [Ratio] by Automated count 11.9-15.3 [facility] Globulin Calc (S) [Mass/Vol] Ordered By: Nic Whittaker on 01-09-2025 Globulin (S) [Mass/Vol] Serum globulin measurement by calculation (mass/volume) [facility] Glucose [Mass/volume] in Ser um or PlasmaOrdered By: Nic Whittaker on 01-09-2025 Glucose [Mass/Vol] Glucose [Mass/volume ] in Serum or Plasma 70-100 [facility] Comment on above: ADA recommended refe rence rangeRandom Glucose Reference Range is dependent on time and content of last meal. Glucose of more than 200 mg/dL in a nonstressed, ambulatory subject supports the diagnosis of Diabetes Mellitus. Glucose [Mass/volume] in Uri ne by Test stripOrdered By: Nic Whittaker on 01-09-2025 Glucose Test strip (U) [Mass/Vol] Glucose [Mass/volume] in Urine by Test strip Normal [facility] HCG ( test) IA.rapi d Ql (U)Ordered By: Nic Whittaker on 01-09-2025 HCG ( test) Ql (U) Urine human chorionic gonadotropin (hCG) detection by immunoassay [facility] HCG,Urineon 01-09-2025 Beta HCG ( test) Ql (U) Negative Normal [facility] Comment on above: Order Comment: Name Collection Type:: Clean-Voided Midstream Result Comment: PERF ORMED BY: [facility] [address] [address] PATHOLOGIST SALES REPRESENTATIVE [employer] REYNA SCALES M.D. Performed By: #### U HCG, UA #### [facility] [address] Hematocrit Auto (Bld) [Volum e fraction]Ordered By: Nic Whittaker on 01-09-2025 Hematocrit (Bld) [Volume fraction] Hematocrit [Volume Fraction] of Blood by Automated count 34.0-46.4 [facility] Hemoglobin Test strip Ql (U) Ordered By: Nic Whittaker on 01-09-2025 Hemoglobin Ql (U) Hemoglobin [Presence ] in Urine by Test strip Negative [facility] Hemoglobin [Mass/volume] in BloodOrdered By: Nic Whittaker on 01-09-2025 Hemoglobin (Bld) [Mass/Vol] Hemoglobin [Mass/volume] in Blood 11.8-15.4 [facility] Hepatic Panelon 01-09-2025 Bilirubin,Indirect 0.4 mg/dL Normal [facility] Comment on above: Performed By: #### L IPASE, HEPATIC, CMP ####[facility] Bilirubin.indirect [Mass/Vol] 0.10 mg/dL Normal 0.03-0.18 [facility] Comment on above: Performed By: #### L IPASE, HEPATIC, CMP ####[facility] Ketones Test strip Ql (U)Ord ered By: Nic Whittaker on 01-09-2025 Ketones Ql (U) Ketones [Presence] i n Urine by Test strip Negative [facility] Leukocyte esterase [Presence ] in Urine by Test stripOrdered By: Nic Whittaker on 01-09-2025 Leukocyte esterase Test strip Ql (U) Leukocyte esterase [Presence] in Urine by Test strip Negative [facility] Leukocytes [#/volume] correc renetta for nucleated erythrocytes in Blood by Automated counOrdered By: Nic Whittaker on 01-09-2025 WBC corrected for nucl RBC Auto (Bld) [#/Vol] Leukocytes [#/volume] corrected for nucleated erythrocytes in Blood by Automated coun 3.8-11.6 [facility] Lipaseon 01-09-2025 Lipase [Catalytic activity/Vol] 16.0 U/L Normal 11.0-82.0 [facility] Comment on above: Result Comment: PERF ORMED BY: [facility] [address] [place] [address] PATHOLOGIST SALES REPRESENTATIVE [employer] REYNA SCALES M.D. Performed By: #### L IPASE, HEPATIC, CMP ####[facility] [id number] [place] [address] [facility] Lipase [Enzymatic activity/v olume] in Serum or PlasmaOrdered By: Nic Whittaker on 01-09-2025 Lipase [Catalytic activity/Vol] Lipase [Enzymatic activity/volume] in Serum or Plasma 11.0-82.0 [facility] Lymphocytes Auto (Bld) [#/Vo l]Ordered By: Nic Whittaker on 01-09-2025 Lymphocytes (Bld) [#/Vol] Lymphocytes [#/volume] in Blood by Automated count 1.00-4.8 [facility] Lymphocytes/100 WBC Auto (Bl d)Ordered By: Nic Whittaker on 01-09-2025 Lymphocytes/100 WBC (Bld) Lymphocytes/100 leukocytes in Blood by Automated count . [facility] MCH Auto (RBC) [Entitic mass ]Ordered By: Nic Whittaker on 01-09-2025 MCH (RBC) [Entitic mass] MCH [Entitic mass] by Automated count 24.7-34.3 [facility] MCHC Auto (RBC) [Mass/Vol]Or dered By: Nic Whittaker on 01-09-2025 MCHC (RBC) [Mass/Vol] MCHC [Mass/volume] by Automated count 32.0-35.0 [facility] MCV Auto (RBC) [Entitic vol] Ordered By: Nic Whittaker on 01-09-2025 MCV (RBC) [Entitic vol] MCV [Entitic vol ume] by Automated count 80-100 [facility] Monocyte distribution width [Entitic volume] in Blood by AutomatedOrdered By: Nic Whittaker on 01-09-2025 Monocyte distribution width Auto (Bld) [Entitic vol] Monocyte distribution width [Entitic volume] in Blood by Automated 0.00-20.00 [facility] Monocytes Auto (Bld) [#/Vol] Ordered By: Nic Whittaker on 01-09-2025 Monocytes (Bld) [#/Vol] Automated blood monocyte count 0.0-0.8 [facility] Monocytes/100 WBC Auto (Bld) Ordered By: Nic Whittaker on 01-09-2025 Monocytes/100 WBC (Bld) Automated monocyte % . [facility] Neutrophils Auto (Bld) [#/Vo l]Ordered By: Nic Whittaker on 01-09-2025 Neutrophils (Bld) [#/Vol] Neutrophils [#/volume] in Blood by Automated count 1.8-7.7 [facility] Neutrophils/100 WBC Auto (Bl d)Ordered By: Nic Whittaker on 01-09-2025 Neutrophils/100 WBC (Bld) Automated neutrophil % . [facility] Nitrite Test strip Ql (U)Ord ered By: Nic Whittaker on 01-09-2025 Nitrite Ql (U) Nitrite [Presence] i n Urine by Test strip Negative [facility] No Panel InformationOrdered By: Nic Whittaker on 01-09-2025 Estimated GFR (CKD-EPI) > 60.0 mL/Min [facility] Creatinine Clearance (Chem 172.18 [facility] Nucleated erythrocytes [Pres ence] in Blood by Automated countOrdered By: Nic Whittaker on 01-09-2025 Nucleated RBC Auto Ql (Bld) Nucleated erythrocytes [Presence] in Blood by Automated count 0-0.5 [facility] Platelet mean volume Auto (B ld) [Entitic vol]Ordered By: Nic Whittaker on 01-09-2025 Platelet mean volume (Bld) [Entitic vol] Platelet mean volume [Entitic volume] in Blood by Automated count 6.3-10.7 [facility] Platelets Auto (Bld) [#/Vol] Ordered By: Nic Whittaker on 01-09-2025 Platelets (Bld) [#/Vol] Platelets [#/vol ume] in Blood by Automated count 150-450 [facility] Potassium [Moles/volume] in Serum or PlasmaOrdered By: Nic Whittaker on 01-09-2025 Potassium [Moles/Vol] Potassium [Moles/volume] in Serum or Plasma 3.5-5.1 [facility] Protein Test strip (U) [Mass /Vol]Ordered By: Nic Whittaker on 01-09-2025 Protein (U) [Mass/Vol] Protein [Mass/vol ume] in Urine by Test strip Negative [facility] Protein [Mass/volume] in Ser um or PlasmaOrdered By: Nic Whittaker on 01-09-2025 Protein [Mass/Vol] Protein [Mass/volume ] in Serum or Plasma 6.4-8.9 [facility] RBC Auto (Bld) [#/Vol]Ordere d By: Nic Whittaker on 01-09-2025 RBC (Bld) [#/Vol] Erythrocytes [#/volume] in Blood by Automated count 3.60-5.00 [facility] Serum or plasma albumin/glob ulin mass ratioOrdered By: Nic Whittaker on 01-09-2025 Albumin/Globulin [Mass ratio] Serum or plasma albumin/globulin mass ratio [facility] Serum or plasma anion gap de terminationOrdered By: Nic Whittaker on 01-09-2025 Anion gap [Moles/Vol] Serum or plasma an ion gap determination 6.0-15.0 [facility] Serum or plasma non-glucuron idated bilirubin measurement (mass/volume)Ordered By: Nic Whittaker on 01-09-2025 Bilirubin.indirect [Mass/Vol] Serum or plasma non-glucuronidated bilirubin measurement (mass/volume) [facility] Sodium [Moles/volume] in Ser um or PlasmaOrdered By: Nic Whittaker on 01-09-2025 Sodium [Moles/Vol] Sodium [Moles/volume ] in Serum or Plasma 136-145 [facility] Specific gravity Test strip (U) [Rel density]Ordered By: Nic Whittaker on 01-09-2025 Specific gravity (U) [Rel density] Specific gravity of Urine by Test strip 1.001-1.030 [facility] Urea nitrogen [Mass/volume] in Serum or PlasmaOrdered By: Nic Whittaker on 01-09-2025 Urea nitrogen [Mass/Vol] Urea nitrogen [Mass/volume] in Serum or Plasma 7-25 [facility] Urinalysison 01-09-2025 Appearance (U) Clear Normal Clear [facility] Comment on above: Order Comment: Name Collection Type:: Clean-Voided Midstream Performed By: #### U HCG, UA #### [facility] [address] [place] [address] [place] Bilirubin,Urine Negative Normal Negative [facility] Comment on above: Order Comment: Name Collection Type:: Clean-Voided Midstream Performed By: #### U HCG, UA #### [facility] [address] [place] [address] [place] Color (U) Yellow Normal Yellow [facility] Comment on above: Order Comment: Name Collection Type:: Clean-Voided Midstream Performed By: #### U HCG, UA #### [address] Glucose Ql (U) Normal Normal Normal [facility] Comment on above: Order Comment: Name Collection Type:: Clean-Voided Midstream Performed By: #### U HCG, UA #### [place] [address] [place] Ketones Ql (U) Negative Normal Negative [facility] Comment on above: Order Comment: Name Collection Type:: Clean-Voided Midstream Performed By: #### U HCG, UA #### [place] [address] [place] Leukocyte esterase Test strip Ql (U) Negative Normal Negative [facility] Comment on above: Order Comment: Name Collection Type:: Clean-Voided Midstream Performed By: #### U HCG, UA #### [place] [address] [place] Nitrite,Urine Negative Normal Negative [facility] Comment on above: Order Comment: Name Collection Type:: Clean-Voided Midstream Performed By: #### U HCG, UA #### [place] [id number] [place] Occult Blood,Urine Negative Normal Negative [facility] Comment on above: Order Comment: Name Collection Type:: Clean-Voided Midstream Performed By: #### U HCG, UA #### [place] [address] [place] pH (U) 6.0 [pH] Normal 5.0-9.0 [facility] Comment on above: Order Comment: Name Collection Type:: Clean-Voided Midstream Performed By: #### U HCG, UA #### [facility] [address] [place] [id number] [place] Protein,Urine Negative Normal Negative [facility] Comment on above: Order Comment: Name Collection Type:: Clean-Voided Midstream Performed By: #### U HCG, UA #### [facility] [address] Specificy [place],Urine 1.029 Normal 1.001-1.030 [facility] Comment on above: Order Comment: Name Collection Type:: Clean-Voided Midstream Performed By: #### U HCG, UA #### [address] Urobilinogen,Urine Normal Normal Normal [facility] Comment on above: Order Comment: Name Collection Type:: Clean-Voided Midstream Performed By: #### U HCG, UA #### [address] Urobilinogen Test strip (U) [Mass/Vol]Ordered By: Nic Whittaker on 01-09-2025 Urobilinogen (U) [Mass/Vol] Urobilinogen [Mass/volume] in Urine by Test strip Normal [facility] WBC Auto (Bld) [#/Vol]Ordere d By: Nic Whittaker on 01-09-2025 WBC (Bld) [#/Vol] Leukocytes [#/volume ] in Blood by Automated count 3.8-11.6 [facility] pH Test strip (U)Ordered By: Nic Whittaker on 01-09-2025 pH (U) pH of Urine by Test strip 5.0-9.0 [facility] No Panel Informationon 12-23 ACINETOBACTER BAUMANII 0 NO [facility] ACINETOBACTER BAUMANII Not detected [facility] PITER ALBICANS, PARAPSILOSIS, TROPICALIS 0 [facility] PITER ALBICANS, PARAPSILOSIS, TROPICALIS Not detected [facility] PITER GLABRATA 0 [facility] PITER GLABRATA Not detected [facility] PITER KRUSEI 0 [facility] PITER KRUSEI Not detected [facility] CITROBACTER FREUNDII 0 [facility] CITROBACTER FREUNDII Not detected NO [facility] ENTEROBACTER AEROGENES, CLOACAE 0 [facility] ENTEROBACTER AEROGENES, CLOACAE Not detected [facility] ENTEROCOCCUS FAECALIS, FAECIUM 0 [facility] ENTEROCOCCUS FAECALIS, FAECIUM Not detected [facility] ESCHERICHIA COLI 0 [facility] ESCHERICHIA COLI Not detected [facility] KLEBSIELLA PNEUMONIAE, OXYTOCA 0 [facility] KLEBSIELLA PNEUMONIAE, OXYTOCA Not detected [facility] MORGANELLA MORGANII 0 [facility] MORGANELLA MORGANII Not detected [facility] PROTEUS MIRABILIS, VULGARIS 0 [facility] PROTEUS MIRABILIS, VULGARIS Not detected [facility] PSEUDOMONAS AERUGINOSA 0 NO [facility] PSEUDOMONAS AERUGINOSA Not detected [facility] SERRATIA MARCESCENS 0 [facility] SERRATIA MARCESCENS Not detected [facility] STAPHYLOCOCCUS AUREUS 0 [facility] STAPHYLOCOCCUS AUREUS Not detected [facility] STAPHYLOCOCCUS EPIDERMIDIS, HAEMOLYTICUS, LUGDUNENSIS, SAPROPHYTICUS (URINA 0 [facility] STAPHYLOCOCCUS EPIDERMIDIS, HAEMOLYTICUS, LUGDUNENSIS, SAPROPHYTICUS (URINA Not detected [facility] STREPTOCOCCUS AGALACTIAE (GROUP B STREP) 0 [facility] STREPTOCOCCUS AGALACTIAE (GROUP B STREP) Not detected [facility] STREPTOCOCCUS PYOGENES (GROUP A STREP) 0 [facility] STREPTOCOCCUS PYOGENES (GROUP A STREP) Not detected [facility] - Chemistry and C hemistry - challengeon 12-22-2024 Bilirubin Ql (U) Negative Negative [facility] Glucose [Mass/Vol] Negative Negative [facility] Healthcare Ketones Ql (U) Negative Negative [facility] Healthcare pH (U) 6 [pH] 5.0 - 6.0 [facility] Specific gravity (U) [Rel density] 1.03 1.001 - 1.035 [facility] Urobilinogen (U) [Mass/Vol] 0.2 mg/dL 0.2 - 1.0 [facility] - Hematology and Cell countson 12-22-2024 Hemoglobin Ql (U) Negative Negative [facility] - Urinalysison Nitrite Ql (U) Negative Negative [facility] Healthcare Protein Ql (U) 15 Negative [facility] No Panel Informationon 12-22 Interpretation and review of laboratory results Normal [facility] LEUKOCYTES Negative Negative [facility] No Panel Informationon 03-29 -2025 INFLUENZA A Negative Negative [facility] INFLUENZA B Negative Negative [facility] Interpretation and review of laboratory results Normal [facility] S. pyogenes DNA MICHEAL+probe No m (Unsp spec)on 10-30-2024 Interpretation and review of laboratory results Normal [facility] RESULT Negative Negative [facility] XR cervical spine 5V*on XR cervical spine 5V* [facility] Main [place] [address] [place] [address] XRay Report Signed Patient: Lizzie Muller MR#: [id number] : 2005 Acct:[id number] Age/Sex: 19 / F ADM Date: 06/09/24 Loc: ER Room: Type: [facility] ER Attending Dr: Copies to: Primitivo Cohen PA-C Ordering Provider: Primitivo Cohen PA-C Date of Service: 06/09/24 XR/XR cervical spine 5V*: Back Pain/Injury XR cervical spine 5V* 06/09/2024 7:14 PM SIGNS AND SYMPTOMS: Left shoulder and back pain with numbness and tingling in fingers PROTOCOLS: Frontal, lateral, and oblique radiographs of the cervical spine COMPARISON: None FINDINGS: There is straightening and mild reversal of the normal cervical lordosis. There is preservation of the vertebral body heights. There is mild disc height loss at C3-C4 and C4-C5. The atlantoaxial joint is preserved. The prevertebral soft tissues are within normal limits. There is no fracture or destructive lesion. XR/XR cervical spine 5V* IMPRESSION: No fracture or subluxation. There is straightening and mild reversal of the normal cervical lordosis which may be positional or secondary to muscle spasm. Impression dictated by: Amos Hunt M.D.06/09/2024 7:39 PM Dictation Location: [place] [address] Transcribed By: [facility] 06/09/241938 Dictated By: Amos Hunt II, MD 06/09/241936 Signed By: 06/09/241938 Normal [facility] XR shoulder LT min 2V*on XR shoulder LT min 2V* [facility] Main [address] [address] XRay Report Signed Patient: Lizzie Muller MR#: [id number] : 2005 Acct:[id number] Age/Sex: 19 / F ADM Date: 06/09/24 Loc: ER Room: Type: [facility] ER Attending Dr: Copies to: Primitivo Cohen PA-C Ordering Provider: Primitivo Cohen PA-C Date of Service: 06/09/24 XR/XR shoulder LT min 2V*: Back Pain/Injury XR shoulder LT min 2V* 06/09/2024 7:14 PM SIGNS AND SYMPTOMS: Left shoulder and back pain, numbness and tingling in fingers PROTOCOL: Frontal, Grashey, and scapular Y views of the left shoulder COMPARISON: None FINDINGS: The acromioclavicular joint is preserved. The glenohumeral joint is preserved. There is no evidence of fracture or dislocation. The visualized left hemithorax is grossly intact. XR/XR shoulder LT min 2V* IMPRESSION: No fracture or dislocation. No significant degenerative change. Impression dictated by: Amos Hunt M.D.06/09/2024 7:43 PM Dictation Location: [place] [address] Transcribed By: [facility] 06/09/241942 Dictated By: Amos Hunt II, MD 06/09/241939 Signed By: 06/09/241942 Normal [facility] CT abdomen pelvis w patrick CT abdomen pelvis w [facility] Main [address] [address] [address] Scan Report Signed Patient: Lizzie Muller MR#: [id number] : 2005 Acct:[id number] Age/Sex: 18 / F ADM Date: 02/17/24 Loc: ER Room: Type: [facility] ER Attending Dr: Copies to: David Nicole DO Ordering Provider: David Nicole DO Date of Service: 02/17/24 CT/CT abdomen pelvis w con: LUQ LLQ pain, diarrhea x [address] ABDOMEN AND PELVIS WITH CONTRAST COMPARISON: 08/09/2023 CLINICAL DATA: Abdominal pain after eating with diarrhea. Kidney stones. Spiral images were obtained through the abdomen and pelvis following 90 mL Isovue-300. This CT exam was performed using one or more following dose reduction techniques: Automated exposure control, adjustment of the mA and/or kV according to patient size, or use of iterative reconstruction technique. Limited cuts through the lung bases show no contributory findings. The gallbladder is contracted. There is a is still a subtle ill-defined right hepatic hypoechoic density measuring almost 2 cm in size. There are no acute findings involving the spleen, pancreas or adrenal glands. There are symmetric renal nephrograms, without hydronephrosis. The abdominal aorta is normal caliber. There are small lymph nodes. No ascites is seen. The small bowel loops are not dilated. There is fluid and food debris within the stomach. There is air and a small amount of stool within the colon. The bony structures are intact. Images through the pelvis show normal caliber small bowel loops. No appendiceal inflammation is present. There is stool at the distal colon. No diverticular disease is seen. The uterus is slightly levoverted. The urinary bladder is is not well distended for evaluation. No ascites is present. CT/CT abdomen pelvis w con IMPRESSION: SIMILAR ILL-DEFINED HEPATIC LESION. THIS REMAINS INDETERMINATE. HEMANGIOMA IS IN THE DIFFERENTIAL. NO BOWEL OR URINARY TRACT OBSTRUCTION. NO OTHER ACUTE FINDINGS. Impression dictated by: Tammie Harrison M.D.02/18/2024 8:22 AM Dictation Location: [place] [address] Transcribed By: [facility] 02/18/24821 Dictated By: Tammie Harrison MD 02/18/24 0745 Signed By: 02/18/24821 Normal [facility] Alanine aminotransferase [En zymatic activity/volume] in Serum or PlasmaOrdered By: David Nicole on 02-17-2024 ALT [Catalytic activity/Vol] 24 U/L Normal [facility] Comment on above: Performed By: #### C MP, CBC ####[facility] [address] [place] [address] [place] Albumin [Mass/volume] in Ser um or Plasma by Bromocresol green (BCG) dye binding methoOrdered By: David Nicole on 02-17-2024 Albumin BCG dye [Mass/Vol] 4.4 g/dL 3.5-5.7 [facility] Alkaline phosphatase [Enzyma tic activity/volume] in Serum or PlasmaOrdered By: David Nicole on 02-17-2024 ALP [Catalytic activity/Vol] 108 U/L High 34-104 [facility] Comment on above: Performed By: #### C MP, CBC ####[address] Aspartate aminotransferase [ Enzymatic activity/volume] in Serum or PlasmaOrdered By: David Nicole on 02-17-2024 AST [Catalytic activity/Vol] 21 U/L Normal 13-39 [facility] Comment on above: Performed By: #### C MP, CBC ####[address] Automated basophil %Ordered By: David Nicole on 02-17-2024 Basophils/100 WBC (Bld) 0.5 % Normal . [facility] Comment on above: Performed By: #### C MP, CBC ####[place] [id number] [facility] Automated basophil countOrde red By: David Nicole on 02-17-2024 Basophils (Bld) [#/Vol] 0.1 10*3/uL Normal 0.0-0.2 [facility] Comment on above: Result Comment: PERF ORMED BY: [facility] [address] [place] [id number] PATHOLOGIST SALES REPRESENTATIVE [employer] BRU[employer] EDMONDS M.D. Performed By: #### C MP, CBC ####[place] [id number] [facility] Automated blood monocyte cou ntOrdered By: David Nicole on 02-17-2024 Monocytes (Bld) [#/Vol] 0.9 10*3/uL High 0.0-0.8 [facility] Comment on above: Performed By: #### C MP, CBC ####[address] Automated eosinophil %Ordere d By: David Nicole on 02-17-2024 Eosinophils/100 WBC (Bld) 2.8 % Normal . [facility] Comment on above: Performed By: #### C MP, CBC ####[address] Automated eosinophil countOr dered By: David Nicole on 02-17-2024 Eosinophils (Bld) [#/Vol] 0.3 10*3/uL Normal 0.0-0.45 [facility] Comment on above: Performed By: #### C MP, CBC ####[address] Automated monocyte %Ordered By: David Nicole on 02-17-2024 Monocytes/100 WBC (Bld) 8.2 % Normal . [facility] Comment on above: Performed By: #### C MP, CBC ####[address] Automated neutrophil %Ordere d By: David Nicole on 02-17-2024 Neutrophils/100 WBC (Bld) 51.8 % Normal . [facility] Comment on above: Performed By: #### C MP, CBC ####[address] Bacteria [Presence] in Urine by AutomatedOrdered By: David Nicole on 02-17-2024 Bacteria Auto Ql (U) Rare [HPF] None Seen [facility] Bilirubin Test strip Ql (U)O rdered By: David Nicole on 02-17-2024 Bilirubin Ql (U) Negative Negative [facility] Bilirubin.total [Mass/volume ] in Serum or PlasmaOrdered By: David Nicole on 02-17-2024 Bilirubin [Mass/Vol] 0.3 mg/dL Normal 0.3-1.0 [facility] Comment on above: Performed By: #### C MP, CBC ####[address] [place] [address] [facility] Calcium [Mass/volume] in Ser um or PlasmaOrdered By: David Corey on 02-17-2024 Calcium [Mass/Vol] 9.6 mg/dL Normal 8.6-10.3 [facility] Comment on above: Performed By: #### C MP, CBC ####[place] [address] [place] [address] [facility] Calcium oxalate crystals [Pr esence] in Urine by Computer assisted methodOrdered By: David Corey on 02-17-2024 Calcium oxalate crystals Computer assisted Ql (U) 3+ [HPF] [facility] Capillary blood glucose mario urement by glucometer (mass/volume)Ordered By: David Nicole on 02-17-2024 Glucose [Mass/Vol] 91 mg/dL Normal [facility] Comment on above: Random Glucose Refer ence Range is dependent on time and content of last meal. Glucose of more than 200 mg/dL in a nonstressed, ambulatory subject supports the diagnosis of Diabetes Mellitus. Result Comment: [facility] Glucose Reference Range is dependent on time and content of last meal. Glucose of more than 200 mg/dL in a nonstressed, ambulatory subject supports the diagnosis of Diabetes Mellitus. Performed By: #### G POPEYE #### Point of Care testing , Carbon dioxide, total [Moles /volume] in Serum or PlasmaOrdered By: Davidnatasha Nicole on 02-17-2024 CO2 [Moles/Vol] 25.8 mmol/L Normal 21.0-31.0 [facility] Comment on above: Performed By: #### C MP, CBC ####[facility] [address] [place] [address] [place] Chloride [Moles/volume] in S katie or PlasmaOrdered By: David Nicole on 02-17-2024 Chloride [Moles/Vol] 106 mmol/L Normal 98-107 [facility] Comment on above: Performed By: #### C MP, CBC ####[place] [address] [place] [address] [place] Clostridium Difficileon 02-01 Clostridium Difficile Negative Normal Negative [facility] Comment on above: Order Comment: > or = to 3 loose/watery stools in the last 24 HRS? Y Is patient on promotility agents or tube feeding? N Result Comment: Test ing performed by RT-PCR PERFORMED BY: [facility] [address] [place] [address] PATHOLOGIST SALES REPRESENTATIVE [employer] EDMONDS M.D. Performed By: #### C DT, OB(GUAIAC), OVP #### [address] Color of Urine by AutoOrdere d By: David Nicole on 02-17-2024 Color (U) Yellow Normal Yellow [facility] Comment on above: Order Comment: Name Collection Type:: Clean-Voided Midstream Performed By: #### C UU, UHCG, ADDONUAPLUS ####[address] Complete Blood Count Auto Di ffon 02-17-2024 Mean Corpuscular HGB Conc 33.2 g/dL Normal 32.0-35.0 [facility] Comment on above: Performed By: #### C MP, CBC ####[place] [address] [place] Monocytes/100 WBC (Bld) 16.73 % Normal 0.00-20.00 [facility] Comment on above: Performed By: #### C MP, CBC ####[address] NRBC% 0.2 /100{WBC} Normal 0-0.5 [facility] Comment on above: Performed By: #### C MP, CBC ####[address] Comprehensive Metabolic Pane sasha 02-17-2024 Albumin [Mass/Vol] 4.4 g/dL Normal 3.5-5.7 [facility] Comment on above: Performed By: #### C MP, CBC ####[place] [address] [place] Creatinine Clr Calc Pharmacy 112.94 Normal [facility] Comment on above: Result Comment: PERF ORMED BY: [facility] [address] [place] [place] [id number] PATHOLOGIST SALES REPRESENTATIVE [employer] EDMONDS M.D. Performed By: #### C MP, CBC ####[place] [address] [place] [address] [facility] GFR/1.73 sq M.predicted MDRD (S/P/Bld) [Vol rate/Area] mL/min/{1.73_m2} Normal [facility] Comment on above: Performed By: #### C MP, CBC ####[place] [id number] [facility] Creatinine [Mass/volume] in Serum or PlasmaOrdered By: David Nicole on 02-17-2024 Creatinine [Mass/Vol] 0.93 mg/dL Normal 0.60-1.20 [facility] Comment on above: Performed By: #### C MP, CBC ####[place] [id number] [place] Dipstick and Microscopicon 0 02-17-2024 Bacteria,Urine Rare Normal None Seen [facility] Comment on above: Order Comment: Name Collection Type:: Clean-Voided Midstream Performed By: #### C UU, UHCG, ADDONUAPLUS ####[address] [address] [facility] Bilirubin,Urine Negative Normal Negative [facility] Comment on above: Order Comment: Name Collection Type:: Clean-Voided Midstream Performed By: #### C UU, UHCG, ADDONUAPLUS ####[address] [address] [facility] Calcium Oxalate Crystals,Urine 3+ Normal [facility] Comment on above: Order Comment: Name Collection Type:: Clean-Voided Midstream Performed By: #### C UU, UHCG, ADDONUAPLUS ####[address] [address] [facility] Glucose Ql (U) Normal Normal Normal [facility] Comment on above: Order Comment: Name Collection Type:: Clean-Voided Midstream Performed By: #### C UU, UHCG, ADDONUAPLUS ####[address] [address] [facility] Hyaline Casts,Urine 9-19 High 0-8 [facility] Comment on above: Order Comment: Name Collection Type:: Clean-Voided Midstream Performed By: #### C UU, UHCG, ADDONUAPLUS ####[address] [address] [facility] Mucus,Urine 3+ Critically abnormal [facility] Comment on above: Order Comment: Name Collection Type:: Clean-Voided Midstream Performed By: #### C UU, UHCG, ADDONUAPLUS ####[address] [address] [facility] Nitrite,Urine Negative Normal Negative [facility] Comment on above: Order Comment: Name Collection Type:: Clean-Voided Midstream Performed By: #### C UU, UHCG, ADDONUAPLUS ####[address] [address] [facility] Occult Blood,Urine Negative Normal Negative [facility] Comment on above: Order Comment: Name Collection Type:: Clean-Voided Midstream Performed By: #### C UU, UHCG, ADDONUAPLUS ####[address] [address] [facility] RBC,Urine 1-2 Normal 0-4 [facility] Comment on above: Order Comment: Name Collection Type:: Clean-Voided Midstream Performed By: #### C UU, UHCG, ADDONUAPLUS ####[address] [address] [facility] Specificy [place],Urine 1.035 High 1.001-1.030 [facility] Comment on above: Order Comment: Name Collection Type:: Clean-Voided Midstream Performed By: #### C UU, UHCG, ADDONUAPLUS ####[address] [place] [address] [facility] Squamous Epithelial Cell,Urine 1-2 Normal 0-2 [facility] Comment on above: Order Comment: Name Collection Type:: Clean-Voided Midstream Performed By: #### C UU, UHCG, ADDONUAPLUS ####[place] [id number] [facility] Urobilinogen,Urine Normal Normal Normal [facility] Comment on above: Order Comment: Name Collection Type:: Clean-Voided Midstream Performed By: #### C UU, UHCG, ADDONUAPLUS ####[address] Urothelial Cells 1-2 High 0-1 [facility] Comment on above: Order Comment: Name Collection Type:: Clean-Voided Midstream Performed By: #### C UU, UHCG, ADDONUAPLUS ####[address] WBC,Urine 20-49 High 0-4 [facility] Comment on above: Order Comment: Name Collection Type:: Clean-Voided Midstream Performed By: #### C UU, UHCG, ADDONUAPLUS ####[address] Epithelial cells.squamous [# /area] in Urine sediment by Automated countOrdered By: David Nicole on 02-17-2024 Epithelial cells.squamous Auto (Urine sed) [#/Area] 1-2 [HPF] 0-2 [facility] Erythrocyte distribution wid th [Ratio] by Automated countOrdered By: David Nicole on 02-17-2024 Erythrocyte distribution width (RBC) [Ratio] 15.2 % Normal 11.9-15.3 [facility] Comment on above: Performed By: #### C MP, CBC ####[address] Erythrocytes [#/area] in Uri ne sediment by Automated countOrdered By: David Nicole on 02-17-2024 RBC Auto (Urine sed) [#/Area] 1-2 [HPF] 0-4 [facility] Erythrocytes [#/volume] in B lood by Automated countOrdered By: David Nicole on 02-17-2024 RBC (Bld) [#/Vol] 5.06 10*6/uL High 3.60-5.00 [facility] Comment on above: Performed By: #### C MP, CBC ####[facility] [address] [place] [address] [facility] Glucose Poct Glucometerson 0 02-17-2024 Commemt1 Glu2: Cleaned Meter Normal [facility] Comment on above: Performed By: #### G LULS #### Point of Care testing , Commemt2 WILL NOTIFY DR/PAULO Normal [facility] Comment on above: Result Comment: PERF ORMED BY: [facility] [address] [place] [address] PATHOLOGIST SALES REPRESENTATIVE [employer] EDMONDS M.D. Performed By: #### G LULS #### Point of Care testing , Glucose [Mass/volume] in Ser um or PlasmaOrdered By: David Nicole on 02-17-2024 Glucose [Mass/Vol] 47 mg/dL Off scale low 70-100 [facility] Comment on above: Critical Result Call ed to and read back by: MIRIAN KOENIG at: 02/17/2024 22:53:48 by:DHADA recommended reference rangeRandom Glucose Reference Range is dependent on time and content of last meal. Glucose of more than 200 mg/dL in a nonstressed, ambulatory subject supports the diagnosis of Diabetes Mellitus. Result Comment: Crit ical Result Called to and read back by: MIRIAN KOENIG at: 02/17/2024 22:53:48 by: Random Glucose Reference Range is dependent on time and content of last meal. Glucose of more than 200 mg/dL in a nonstressed, ambulatory subject supports the diagnosis of Diabetes Mellitus. ADA recommended reference range Performed By: #### C MP, CBC ####[facility] [address] [place] [address] [facility] Glucose [Mass/volume] in Uri ne by Test stripOrdered By: David Nicole on 02-17-2024 Glucose Test strip (U) [Mass/Vol] Normal mg/dL Normal [facility] HCG ( test) IA.rapi d Ql (U)Ordered By: David Nicole on 02-17-2024 HCG ( test) Ql (U) Negative [facility] HCG,Urineon 02-17-2024 Beta HCG ( test) Ql (U) Negative Normal [facility] Comment on above: Order Comment: Name Collection Type:: Clean-Voided Midstream Result Comment: PERF ORMED BY: [facility] [address] [place] [address] PATHOLOGIST SALES REPRESENTATIVE [employer] EDMONDS M.D. Performed By: #### C UU, CG, ADDONUAPLUS ####[place] [address] [address] Hematocrit [Volume Fraction] of Blood by Automated countOrdered By: David Nicole on 02-17-2024 Hematocrit (Bld) [Volume fraction] 41.4 % Normal 34.0-46.4 [facility] Comment on above: Performed By: #### C MP, CBC ####[place] [address] [address] Hemoglobin Test strip Ql (U) Ordered By: David Nicole on 02-17-2024 Hemoglobin Ql (U) Negative Negative [facility] Hemoglobin [Mass/volume] in BloodOrdered By: David Nicole on 02-17-2024 Hemoglobin (Bld) [Mass/Vol] 13.7 g/dL Normal 11.8-15.4 [facility] Comment on above: Performed By: #### C MP, CBC ####[place] [id number] [facility] Hyaline casts [#/area] in Ur ine sediment by Automated countOrdered By: David Nicole on 02-17-2024 Hyaline casts Auto (Urine sed) [#/Area] 9-19 [LPF] High 0-8 [facility] Ketones [Presence] in Urine by Test stripOrdered By: David Nicole on 02-17-2024 Ketones Ql (U) Trace High Negative [facility] Comment on above: Order Comment: Name Collection Type:: Clean-Voided Midstream Performed By: #### C UU, UHCG, ADDONUAPLUS ####[place] [address] [place] [id number] [facility] Leukocyte esterase [Presence ] in Urine by Test stripOrdered By: David Nicole on 02-17-2024 Leukocyte esterase Test strip Ql (U) 4+ High Negative [facility] Comment on above: Order Comment: Name Collection Type:: Clean-Voided Midstream Performed By: #### C UU, UHCG, ADDONUAPLUS ####[place] [address] [place] [id number] [place] Leukocytes [#/area] in Urine sediment by Automated countOrdered By: David Nicole on 02-17-2024 WBC Auto (Urine sed) [#/Area] 20-49 [HPF] High 0-4 [facility] Leukocytes [#/volume] correc renetta for nucleated erythrocytes in Blood by Automated counOrdered By: David Nicole on 02-17-2024 WBC corrected for nucl RBC Auto (Bld) [#/Vol] 11.3 10*3/uL 3.8-11.6 [facility] Leukocytes [#/volume] in Blo od by Automated countOrdered By: David Nicole on 02-17-2024 WBC (Bld) [#/Vol] 11.3 10*3/uL Normal 3.8-11.6 [facility] Comment on above: Performed By: #### C MP, CBC ####[place] [id number] [place] Lymphocytes [#/volume] in Bl ood by Automated countOrdered By: David Nicole on 02-17-2024 Lymphocytes (Bld) [#/Vol] 4.1 10*3/uL Normal 1.00-4.8 [facility] Comment on above: Performed By: #### C MP, CBC ####[place] [id number] [place] Lymphocytes/100 leukocytes i n Blood by Automated countOrdered By: David Nicole on 02-17-2024 Lymphocytes/100 WBC (Bld) 36.7 % Normal . [facility] Comment on above: Performed By: #### C MP, CBC ####[place] [address] MCH [Entitic mass] by Automa renetta countOrdered By: David Nicole on 02-17-2024 MCH (RBC) [Entitic mass] 27.1 pg Normal 24.7-34.3 [facility] Comment on above: Performed By: #### C MP, CBC ####[address] MCHC Auto (RBC) [Mass/Vol]Or dered By: David Nicole on 02-17-2024 MCHC (RBC) [Mass/Vol] 33.2 g/dL 32.0-35.0 [facility] MCV [Entitic volume] by Auto mated countOrdered By: David Nicole on 02-17-2024 MCV (RBC) [Entitic vol] 81.8 fL Normal 80-100 [facility] Comment on above: Performed By: #### C JONATHAN, CBC ####[address] Monocyte distribution width [Entitic volume] in Blood by AutomatedOrdered By: David Nicole on 02-17-2024 Monocyte distribution width Auto (Bld) [Entitic vol] 16.73 % 0.00-20.00 [facility] Mucus [Presence] in Urine by AutomatedOrdered By: David Nicole on 02-17-2024 Mucus Auto Ql (U) 3+ [LPF] Abnormal [facility] Neutrophils [#/volume] in Bl ood by Automated countOrdered By: David Nicole on 02-17-2024 Neutrophils (Bld) [#/Vol] 5.9 10*3/uL Normal 1.8-7.7 [facility] Comment on above: Performed By: #### C MP, CBC ####[facility] Nitrite Test strip Ql (U)Ord ered By: David Nicole on 02-17-2024 Nitrite Ql (U) Negative Negative [facility] No Panel InformationOrdered By: David Nicole on 02-17-2024 Bedside Glucose #[address]/rn [facility] Bedside Glucose Comment Glu2: cleaned meter [facility] Estimated GFR (CKD-EPI) > 60.0 mL/Min [facility] Creatinine Clearance (Chem 112.94 [facility] Nucleated erythrocytes [Pres ence] in Blood by Automated countOrdered By: David Nicole on 02-17-2024 Nucleated RBC Auto Ql (Bld) 0.2 /100{WBC} 0-0.5 [facility] Ova and Parasite Panelon Cryptosporidium (C.hominis+par Negative Normal Negative [facility] Comment on above: Result Comment: Cryp tosporidium test includes C. hominis and C. parvum. Performed By: #### C DT, OB(GUAIAC), OVP #### [address] Entamoeba histolytica Negative Normal Negative [facility] Comment on above: Result Comment: Test ing performed by RT-PCR PERFORMED BY: [place] [address] PATHOLOGIST SALES REPRESENTATIVE [employer] EDMONDS M.D. Performed By: #### C DT, OB(GUAIAC), OVP #### [facility] [address] [place] [address] Giardia lamblia Negative Normal Negative [facility] Comment on above: Performed By: #### C DT, OB(GUAIAC), OVP #### [facility] [address] [place] [address] [place] Platelet mean volume [Entiti c volume] in Blood by Automated countOrdered By: David Nicole on 02-17-2024 Platelet mean volume (Bld) [Entitic vol] 9.3 fL Normal 6.3-10.7 [facility] Comment on above: Performed By: #### C MP, CBC ####[address] [address] [facility] Platelets [#/volume] in Bloo d by Automated countOrdered By: David Nicole on 02-17-2024 Platelets (Bld) [#/Vol] 320 10*3/uL Normal 150-450 [facility] Comment on above: Performed By: #### C MP, CBC ####[address] [address] [facility] Potassium [Moles/volume] in Serum or PlasmaOrdered By: David Nicole on 02-17-2024 Potassium [Moles/Vol] 3.6 mmol/L Normal 3.5-5.1 [facility] Comment on above: Performed By: #### C MP, CBC ####[address] [address] [facility] Protein [Mass/volume] in Ser um or PlasmaOrdered By: David Nicole on 02-17-2024 Protein [Mass/Vol] 7.7 g/dL Normal 6.4-8.9 [facility] Comment on above: Performed By: #### C MP, CBC ####[address] [address] [facility] Protein [Mass/volume] in Uri ne by Test stripOrdered By: David Nicole on 02-17-2024 Protein (U) [Mass/Vol] 20 mg/dL High Negative [facility] Comment on above: Order Comment: Name Collection Type:: Clean-Voided Midstream Performed By: #### C UU, UHCG, ADDONUAPLUS ####[address] [address] [facility] Serum globulin measurement b y calculation (mass/volume)Ordered By: David Nicole on 02-17-2024 Globulin (S) [Mass/Vol] 3.3 g/dL Normal [facility] Comment on above: Performed By: #### C MP, CBC ####[address] [address] [facility] Serum or plasma albumin/glob ulin mass ratioOrdered By: David Nicole on 02-17-2024 Albumin/Globulin [Mass ratio] 1.3 {ratio} Normal [facility] Comment on above: Performed By: #### C JONATHAN, CBC ####[place] [address] Serum or plasma anion gap de terminationOrdered By: David Nicole on 02-17-2024 Anion gap [Moles/Vol] 10.8 mmol/L Normal 6.0-15.0 [facility] Comment on above: Performed By: #### C JONATHAN, CBC ####[place] [address] Sodium [Moles/volume] in Ser um or PlasmaOrdered By: David Nicole on 02-17-2024 Sodium [Moles/Vol] 139 mmol/L Normal 136-145 [facility] Comment on above: Performed By: #### C JONATHAN, CBC ####[place] [address] Specific gravity Test strip (U) [Rel density]Ordered By: David Nicole on 02-17-2024 Specific gravity (U) [Rel density] 1.035 High 1.001-1.030 [facility] Stool Occult Blood (Guaiac)o n 02-17-2024 Stool Occult Blood (Guaiac) Occult Blood Negative for Occult Blood by Guaiac Methodology Reference range = Negative LACTOFERRIN Negative for Fecal Lactoferrin Immune suppression may cause reduced WBC counts, leading to a false negative result. Reference range = Negative PERFORMED BY: [place] [address] PATHOLOGIST SALES REPRESENTATIVE [employer] BRUCE EDMONDS M.D. Normal [facility] Comment on above: Performed By: #### C DT, OB(GUAIAC), OVP #### [facility] [address] [place] [address] Stool lactoferrin detectionO rdered By: David Nicole on 02-17-2024 Lactoferrin Ql (Stl) [facility] Transitional cells [#/area] in Urine by Computer assisted methodOrdered By: David Nicole on 02-17-2024 Transitional cells Computer assisted (U) [#/Area] 1-2 [HPF] High 0-1 [facility] Urea nitrogen [Mass/volume] in Serum or PlasmaOrdered By: David Nicole on 02-17-2024 Urea nitrogen [Mass/Vol] 10 mg/dL Normal 7-25 [facility] Comment on above: Performed By: #### C MP, CBC ####[address] Urine Cultureon 02-17-2024 Bacteria identified Cx Nom (U) 30,000 colonies/ml mixed bacterial skin contaminants 2 Days PERFORMED BY: [place] [address] PATHOLOGIST SALES REPRESENTATIVE [employer]UCE EDMONDS M.D. Normal [facility] Comment on above: Performed By: #### C UU, UHCG, ADDONUAPLUS ####[address] Urine appearanceOrdered By: David Nicole on 02-17-2024 Appearance (U) Cloudy Critically abnormal Clear [facility] Comment on above: Order Comment: Name Collection Type:: Clean-Voided Midstream Performed By: #### C UU, UHCG, ADDONUAPLUS ####[address] Urobilinogen Test strip (U) [Mass/Vol]Ordered By: David Nicole on 02-17-2024 Urobilinogen (U) [Mass/Vol] Normal mg/dL Normal [facility] pH of Urine by Test stripOrd ered By: David Nicole on 02-17-2024 pH (U) 5.5 [pH] Normal 5.0-9.0 [facility] Comment on above: Order Comment: Name Collection Type:: Clean-Voided Midstream Performed By: #### C UU, UHCG, ADDONUAPLUS ####[facility] [address] [place] [address] [facility] Alanine aminotransferase [En zymatic activity/volume] in Serum or PlasmaOrdered By: Manny Brooke on 08-09-2023 ALT [Catalytic activity/Vol] 31 U/L 7-52 [facility] Albumin [Mass/volume] in Ser um or Plasma by Bromocresol green (BCG) dye binding methoOrdered By: Manny Brooke on 08-09-2023 Albumin BCG dye [Mass/Vol] 4.6 g/dL 3.5-5.7 [facility] Alkaline phosphatase [Enzyma tic activity/volume] in Serum or PlasmaOrdered By: Manny Brooke on 08-09-2023 ALP [Catalytic activity/Vol] 126 U/L 34-104 [facility] Aspartate aminotransferase [ Enzymatic activity/volume] in Serum or PlasmaOrdered By: Manny Brooke on 08-09-2023 AST [Catalytic activity/Vol] 22 U/L 13-39 [facility] Automated erythrocytes count in urine sediment (number/area)Ordered By: Manny Brooke on 08-09-2023 RBC Auto (Urine sed) [#/Area] 3-4 [HPF] 0-4 [facility] Automated leukocytes count i n urine sediment (number/area)Ordered By: Manny Brooke on 08-09-2023 WBC Auto (Urine sed) [#/Area] 20-49 [HPF] 0-4 [facility] Basophils Auto (Bld) [#/Vol] Ordered By: Manny Brooke on 08-09-2023 Basophils (Bld) [#/Vol] 0.1 10*3/uL 0.0-0.2 [facility] Basophils/100 WBC Auto (Bld) Ordered By: Manny Brooke on 08-09-2023 Basophils/100 WBC (Bld) 0.3 % . [facility] Bilirubin Test strip Ql (U)O rdered By: Manny Brooke on 08-09-2023 Bilirubin Ql (U) Negative Negative [facility] Bilirubin.total [Mass/volume ] in Serum or PlasmaOrdered By: Manny Brooke on 08-09-2023 Bilirubin [Mass/Vol] 0.4 mg/dL 0.3-1.0 [facility] Calcium [Mass/volume] in Ser um or PlasmaOrdered By: Manny Brooke on 08-09-2023 Calcium [Mass/Vol] 9.6 mg/dL 8.6-10.3 [facility] Carbon dioxide, total [Moles /volume] in Serum or PlasmaOrdered By: Manny Brooke on 08-09-2023 CO2 [Moles/Vol] 21.8 mmol/L 21.0-31.0 [facility] Chloride [Moles/volume] in S katie or PlasmaOrdered By: Manny Brooke on 08-09-2023 Chloride [Moles/Vol] 105 mmol/L 98-107 [facility] Color Auto (U)Ordered By: Scott Brooke on 08-09-2023 Color (U) Yellow Yellow [facility] Creatinine [Mass/volume] in Serum or PlasmaOrdered By: Manny Brooke on 08-09-2023 Creatinine [Mass/Vol] 0.91 mg/dL 0.60-1.20 [facility] Eosinophils Auto (Bld) [#/Vo l]Ordered By: Manny Brooke on 08-09-2023 Eosinophils (Bld) [#/Vol] 0.0 10*3/uL 0.0-0.45 [facility] Eosinophils/100 WBC Auto (Bl d)Ordered By: Manny Brooke on 08-09-2023 Eosinophils/100 WBC (Bld) 0.3 % . [facility] Erythrocyte distribution wid th Auto (RBC) [Ratio]Ordered By: Manny Brooke on 08-09-2023 Erythrocyte distribution width (RBC) [Ratio] 14.5 % 11.9-15.3 [facility] Globulin Calc (S) [Mass/Vol] Ordered By: Manny Brooke on 08-09-2023 Globulin (S) [Mass/Vol] 3.6 g/dL [facility] Glucose [Mass/volume] in Ser um or PlasmaOrdered By: Manny Brooke on 08-09-2023 Glucose [Mass/Vol] 103 mg/dL 70-100 [facility] Comment on above: ADA recommended refe rence rangeRandom Glucose Reference Range is dependent on time and content of last meal. Glucose of more than 200 mg/dL in a nonstressed, ambulatory subject supports the diagnosis of Diabetes Mellitus. HCG ( test) IA.rapi d Ql (U)Ordered By: Manny Brooke on 08-09-2023 HCG ( test) Ql (U) Negative [facility] Hematocrit Auto (Bld) [Volum e fraction]Ordered By: Manny Brooke on 08-09-2023 Hematocrit (Bld) [Volume fraction] 42.3 % 34.0-46.4 [facility] Hemoglobin [Mass/volume] in BloodOrdered By: Manny Brooke on 08-09-2023 Hemoglobin (Bld) [Mass/Vol] 14.1 g/dL 11.8-15.4 [facility] Ketones Auto test strip (U) [Mass/Vol]Ordered By: Manny Brooke on 08-09-2023 Ketones (U) [Mass/Vol] Trace Negative [facility] - UrinalysisOrder ed By: Manny Brooke on 08-09-2023 Hyaline casts LM Ql (Urine sed) 0-8 [LPF] 0-8 [facility] Leukocytes [#/volume] correc renetta for nucleated erythrocytes in Blood by Automated counOrdered By: Manny Brooke on 08-09-2023 WBC corrected for nucl RBC Auto (Bld) [#/Vol] 14.5 10*3/uL 3.8-11.6 [facility] Lipase [Enzymatic activity/v olume] in Serum or PlasmaOrdered By: Manny Brooke on 08-09-2023 Lipase [Catalytic activity/Vol] 12.0 U/L 11.0-82.0 [facility] Lymphocytes Auto (Bld) [#/Vo l]Ordered By: Manny Brooke on 08-09-2023 Lymphocytes (Bld) [#/Vol] 1.6 10*3/uL 1.00-4.8 [facility] Lymphocytes/100 WBC Auto (Bl d)Ordered By: Manny Brooke on 08-09-2023 Lymphocytes/100 WBC (Bld) 11.2 % . [facility] MCH Auto (RBC) [Entitic mass ]Ordered By: Manny Brooke on 08-09-2023 MCH (RBC) [Entitic mass] 26.4 pg 24.7-34.3 [facility] MCHC Auto (RBC) [Mass/Vol]Or dered By: Manny Brooke on 08-09-2023 MCHC (RBC) [Mass/Vol] 33.2 g/dL 32.0-35.0 [facility] MCV Auto (RBC) [Entitic vol] Ordered By: Manny Brooke on 08-09-2023 MCV (RBC) [Entitic vol] 79.4 fL 80-100 [facility] Monocyte distribution width [Entitic volume] in Blood by AutomatedOrdered By: Manny Brooke on 08-09-2023 Monocyte distribution width Auto (Bld) [Entitic vol] 17.81 % 0.00-20.00 [facility] Monocytes Auto (Bld) [#/Vol] Ordered By: Manny Brooke on 08-09-2023 Monocytes (Bld) [#/Vol] 0.8 10*3/uL 0.0-0.8 [facility] Monocytes/100 WBC Auto (Bld) Ordered By: Manny Brooke on 08-09-2023 Monocytes/100 WBC (Bld) 5.5 % . [facility] Neutrophils Auto (Bld) [#/Vo l]Ordered By: Manny Brooke on 08-09-2023 Neutrophils (Bld) [#/Vol] 11.9 10*3/uL 1.8-7.7 [facility] Neutrophils/100 WBC Auto (Bl d)Ordered By: Manny Brooke on 08-09-2023 Neutrophils/100 WBC (Bld) 82.7 % . [facility] Nitrite Test strip Ql (U)Ord ered By: Manny Brooke on 08-09-2023 Nitrite Ql (U) Negative Negative [facility] No Panel InformationOrdered By: Manny Brooke on 08-09-2023 Estimated GFR (CKD-EPI) > 60.0 mL/Min [facility] Creatinine Clearance (Chem 117.41 [facility] Nucleated erythrocytes [Pres ence] in Blood by Automated countOrdered By: Manny Brooke on 08-09-2023 Nucleated RBC Auto Ql (Bld) 0.1 /100{WBC} 0-0.5 [facility] Platelet mean volume Auto (B ld) [Entitic vol]Ordered By: Manny Brooke on 08-09-2023 Platelet mean volume (Bld) [Entitic vol] 8.7 fL 6.3-10.7 [facility] Platelets Auto (Bld) [#/Vol] Ordered By: Manny Brooke on 08-09-2023 Platelets (Bld) [#/Vol] 359 10*3/uL 150-450 [facility] Potassium [Moles/volume] in Serum or PlasmaOrdered By: Manny Brooke on 08-09-2023 Potassium [Moles/Vol] 4.2 mmol/L 3.5-5.1 [facility] Protein Auto test strip (U) [Mass/Vol]Ordered By: Manny Brooke on 08-09-2023 Protein (U) [Mass/Vol] 30 mg/dL Negative [facility] Protein [Mass/volume] in Ser um or PlasmaOrdered By: Manny Brooke on 08-09-2023 Protein [Mass/Vol] 8.2 g/dL 6.4-8.9 [facility] RBC Auto (Bld) [#/Vol]Ordere d By: Manny Brooke on 08-09-2023 RBC (Bld) [#/Vol] 5.33 10*6/uL 3.60-5.00 [facility] Serum or plasma albumin/glob ulin mass ratioOrdered By: Manny Brooke on 08-09-2023 Albumin/Globulin [Mass ratio] 1.3 {ratio} [facility] Serum or plasma anion gap de terminationOrdered By: Manny Brooke on 08-09-2023 Anion gap [Moles/Vol] 14.4 mmol/L 6.0-15.0 [facility] Sodium [Moles/volume] in Ser um or PlasmaOrdered By: Manny Brooke on 08-09-2023 Sodium [Moles/Vol] 137 mmol/L 136-145 [facility] Specific gravity Auto test s trip (U) [Rel density]Ordered By: Manny Brooke on 08-09-2023 Specific gravity (U) [Rel density] 1.039 1.001-1.030 [facility] Squamous epithelial cells de tection in urine sediment by light microscopyOrdered By: Manny Brooke on 08-09-2023 Epithelial cells.squamous LM Ql (Urine sed) 3-4 [HPF] 0-2 [facility] Urea nitrogen [Mass/volume] in Serum or PlasmaOrdered By: Manny Brooke on 08-09-2023 Urea nitrogen [Mass/Vol] 8 mg/dL 7-25 [facility] Urine bacteria detection by automated methodOrdered By: Manny Brooke on 08-09-2023 Bacteria Auto Ql (U) 1+ None Seen [facility] Urine clarity by refractomet ry automatedOrdered By: Manny Brooke on 08-09-2023 Clarity Refractometry automated (U) Cloudy Clear [facility] Urine glucose measurement by automated test strip (mass/volume)Ordered By: Manny Brooke on 08-09-2023 Glucose Auto test strip (U) [Mass/Vol] Normal mg/dL Normal [facility] Urine hemoglobin detection b y automated test stripOrdered By: Manny Brooke on 08-09-2023 Hemoglobin Auto test strip Ql (U) Negative Negative [facility] Urine leukocyte esterase det ection by automated test stripOrdered By: Manny Brooke on 08-09-2023 Leukocyte esterase Auto test strip Ql (U) 2+ Negative [facility] Urobilinogen Auto test strip (U) [Mass/Vol]Ordered By: Manny Brooke on 08-09-2023 Urobilinogen (U) [Mass/Vol] Normal mg/dL Normal [facility] WBC Auto (Bld) [#/Vol]Ordere d By: Manny Sparkszi on 08-09-2023 WBC (Bld) [#/Vol] 14.5 10*3/uL 3.8-11.6 [facility] pH Auto test strip (U)Ordere d By: Manny Mendy on 08-09-2023 pH (U) 6.5 [pH] 5.0-9.0 [facility] Auto Diffon 07-13-2023 Basophils/100 WBC (Bld) 0.4 % Normal 0.0-2.0 [facility] Comment on above: Order Comment: Order Added by Discern Expert. Performed By: #### 1 [id number], 6532000, 4231705, 78304787, 0848126, 9159489, 5031607 ####[facility] [address] [place] [address] Basophils/Leukocytes Auto (Bld) [Pure # fraction] 0.1 E9/L Normal 0.0-0.2 [facility] Comment on above: Order Comment: Order Added by Discern Expert. Performed By: #### 1 [id number], 4164014, 4927614, 57398092, 5376823, 7736958, 1902823 ####[facility] [address] [place] [address] Eosinophils/100 WBC (Bld) 1.0 % Normal 0.0-8.0 [facility] Comment on above: Order Comment: Order Added by Discern Expert. Performed By: #### 1 [id number], 0371135, 6058083, 74805847, 3784029, 2804512, 3780863 ####[facility] [address] [place] [address] Eosinophils/Leukocytes Auto (Bld) [Pure # fraction] 0.1 E9/L Normal 0.0-0.5 [facility] Comment on above: Order Comment: Order Added by Discern Expert. Performed By: #### 1 5351889, 0794958, 5212762, 90733251, 6189763, 4445284, 5669016 ####[place] [address] [place] [address] Lymphocytes/100 WBC (Bld) 26.5 % Normal 14.0-50.0 [facility] Comment on above: Order Comment: Order Added by Discern Expert. Performed By: #### 1 0157864, 5728553, 3051745, 75680424, 1171591, 1828600, 6646316 ####[place] [address] [place] [address] Lymphocytes/Leukocytes Auto (Bld) [Pure # fraction] 3.7 E9/L Normal 1.0-4.0 [facility] Comment on above: Order Comment: Order Added by Discern Expert. Performed By: #### 1 3461442, 9477634, 7137138, 70723837, 3550473, 9627181, 6682401 ####[address] [address] Monocytes/100 WBC (Bld) 6.5 % Normal 4.0-14.0 [facility] Comment on above: Order Comment: Order Added by Discern Expert. Performed By: #### 1 6895743, 8098483, 0243023, 25494287, 4725958, 5361627, 9847455 ####[place] [address] [place] [address] Monocytes/Leukocytes Auto (Bld) [Pure # fraction] 0.9 E9/L Normal 0.2-1.0 [facility] Comment on above: Order Comment: Order Added by Discern Expert. Performed By: #### 1 0982782, 4768135, 4900343, 44977049, 7259514, 5317768, 3354819 ####[address] [address] Neutrophils/100 WBC (Bld) 65.6 % Normal 36.0-75.0 [facility] Comment on above: Order Comment: Order Added by Discern Expert. Performed By: #### 1 4004184, 0576598, 6649275, 82983097, 7268552, 0327106, 0507912 ####[facility] [address] [place] [address] Neutrophils/Leukocytes Auto (Bld) [Pure # fraction] 9.1 E9/L High 2.0-7.5 [facility] Comment on above: Order Comment: Order Added by Discern Expert. Performed By: #### 1 9239400, 9389277, 8554978, 94813992, 0223823, 0566454, 0410260 ####[facility] [address] [place] [address] BMPon 07-13-2023 Creatinine [Mass/Vol] 0.9 mg/dL Normal 0.5-1.3 [facility] Comment on above: Performed By: #### 1 2001086, 9825965, 3284759, 81798591, 4095951, 3374075, 1473951 ####[facility] [address] [place] [address] Urea nitrogen [Mass/Vol] 7 mg/dL Normal 5-21 [facility] Comment on above: Performed By: #### 1 5301342, 8697006, 2572466, 49794562, 5706105, 1533308, 6223184 ####[facility] [address] [place] [address] Urea nitrogen/Creatinine [Mass ratio] 8 No Units Low 10-20 [facility] Comment on above: Performed By: #### 1 4429164, 7211658, 1107998, 21572255, 6002686, 5660839, 0022281 ####[facility] [address] [place] [address] Anion gap [Moles/Vol] 10 mmol/L Normal 6-16 [facility] Comment on above: Performed By: #### 1 4373847, 5202166, 4003785, 83920589, 3144124, 4082176, 6604987 ####[facility] [address] [place] [address] Calcium [Mass/Vol] 8.9 mg/dL Normal 8.9-11.1 [facility] Comment on above: Performed By: #### 1 9295476, 7104280, 6122323, 00578839, 3947419, 3661289, 3320522 ####[facility] [address] [place] [address] Chloride [Moles/Vol] 108 mmol/L Normal 101-111 [facility] Comment on above: Performed By: #### 1 4028081, 8630036, 9460053, 09178039, 5139272, 5014480, 8496974 ####[facility] [address] [place] [address] CO2 [Moles/Vol] 24 mmol/L Normal 21-31 [facility] Comment on above: Performed By: #### 1 4583466, 7497405, 1310333, 68283834, 1018451, 4167986, 2812068 ####[facility] [address] [place] [address] Glucose [Mass/Vol] 85 mg/dL Normal 55-199 [facility] Comment on above: Result Comment: If t his glucose result represents a fasting glucose, interpretation should refer to the following reference range: 55-99 mg/dL Performed By: #### 1 6265185, 9934706, 2829480, 53747982, 3597002, 3850714, 7416769 ####[facility] [address] [place] [address] Potassium [Moles/Vol] 3.6 mmol/L Normal 3.5-5.3 [facility] Comment on above: Performed By: #### 1 6289481, 6956777, 9021125, 27755216, 7387101, 7940942, 9986267 ####[facility] [address] [place] [address] Sodium [Moles/Vol] 138 mmol/L Normal 135-145 [facility] Comment on above: Performed By: #### 1 6225385, 2958901, 8149669, 87579793, 2752180, 2812003, 7378499 ####[place] [address] [place] [address] CBC w/ Auto Diffon Erythrocyte distribution width (RBC) [Ratio] 14.5 % High 10.9-14.2 [facility] Comment on above: Performed By: #### 1 6337407, 0656390, 1984721, 42887805, 8470671, 8699674, 4391095 ####[place] [address] [place] [address] Hematocrit (Bld) [Volume fraction] 37.8 % Normal 34.0-46.0 [facility] Comment on above: Performed By: #### 1 6773638, 0151788, 6019513, 18455383, 5295982, 5035261, 4179053 ####[address] [address] Hemoglobin (Bld) [Mass/Vol] 12.3 g/dL Normal 12.0-16.0 [facility] Comment on above: Performed By: #### 1 9842074, 5576901, 9671743, 22620175, 2912774, 6024636, 6887612 ####[address] [address] MCH (RBC) [Entitic mass] 26.0 pg Low 27.0-34.0 [facility] Comment on above: Performed By: #### 1 2479403, 3809152, 2837885, 55708923, 7165633, 7463503, 0116947 ####[address] [address] MCHC (RBC) [Mass/Vol] 32.6 g/dL Normal 31.4-36.0 [facility] Comment on above: Performed By: #### 1 6914056, 8749267, 0654339, 77646045, 1596097, 6004005, 3890998 ####[address] [address] MCV (RBC) [Entitic vol] 79.7 fL Low 80.0-100.0 [facility] Comment on above: Performed By: #### 1 6690076, 8214223, 9953073, 26636053, 3466687, 6437060, 5551377 ####[facility] [address] [place] [address] Platelet mean volume (Bld) [Entitic vol] 8.7 fL Normal 6.4-10.8 [facility] Comment on above: Performed By: #### 1 7610594, 9976569, 6974290, 15854031, 2184379, 4256258, 8457464 ####[facility] [address] [place] [address] Platelets (Bld) [#/Vol] 333.0 E9/L Normal 150.0-500.0 [facility] Comment on above: Performed By: #### 1 6481457, 3533276, 3346256, 64445861, 6553401, 1152646, 5949071 ####[facility] [address] [place] [address] RBC (Bld) [#/Vol] 4.7 E12/L Normal 4.3-5.9 [facility] Comment on above: Performed By: #### 1 8203523, 3978562, 3987200, 16084960, 1056392, 0347740, 2949246 ####[facility] [address] [place] [address] WBC corrected for nucl RBC Auto (Bld) [#/Vol] 13.9 E9/L High 4.0-11.0 [facility] Comment on above: Performed By: #### 1 9888304, 8318256, 2786851, 17428302, 3155063, 7708382, 3664421 ####[facility] [address] [place] [address] COAGULATIONOrdered By: Radha Marks on 07-13-2023 Fibrin D-dimer FEU (PPP) [Mass/Vol] 248 ng/mL FEU Normal 215 - 500 ng/mL FEU [facility] Comment on above: Interpretive Data: T his assay is intended for use as an aid in the diagnosis of DVT or PE. These conditions cannot be excluded with certainty solely on the basis of a D-dimer concentration being within the reference range This D-Dimer assay may be used in conjunction with a non-high clinical pretest probability assessment to exclude deep-vein thrombosis(DVT). For exclusion of venous thrombosis or pulmonary embolism the analyte D-Dimer should not be used as an aid in patients with: Therapeutic dose anticoagulant therapy for >24 hours Fibrinolytic therapy within previous 7 days Trauma or surgery within previous 4 weeks Disseminated malignacies Aortic aneurysm Sepsis, severe infections, pneumonia, severe skin infections Liver cirrhosis Consent for Treatmenton 07-04 Consent for Treatment [id number] .00TIFF Normal [facility] D-Dimeron 07-13-2023 Fibrin D-dimer FEU (PPP) [Mass/Vol] 248 [id number] Normal 215-500 [facility] Comment on above: Result Comment: This assay is intended for use as an aid in the diagnosis of DVT or PE. These conditions cannot be excluded with certainty solely on the basis of a D-dimer concentration being within the reference range This D-Dimer assay may be used in conjunction with a non-high clinical pretest probability assessment to exclude deep-vein thrombosis(DVT). For exclusion of venous thrombosis or pulmonary embolism the analyte D-Dimer should not be used as an aid in patients with: Therapeutic dose anticoagulant therapy for >24 hours Fibrinolytic therapy within previous 7 days Trauma or surgery within previous 4 weeks Disseminated malignacies Aortic aneurysm Sepsis, severe infections, pneumonia, severe skin infections Liver cirrhosis Performed By: #### 2 [id number] ####[facility] [address] [place] [address] Discharge Instructionson Discharge Instructions [id number] 1.00TIFF Normal [facility] ED Clinical Summaryon 2022 ED Clinical Summary [place] [id number] ED Clinical Summary Person Information Name: LIZZIE MULLER [facility] Age: 18 Years : 2005 Sex: Female Language: Palauan PCP: FRANCI ESCALANTE CNP Marital Status: Single MRN: [id number] Visit Id: Visit Reason: Syncope/Near syncope; Nausea; Abdominal pain; STOMACH PAIN, CHEST TIGHTNESS Speciality: Acuity: 3 Enc Type: Emergency Med Service: Emergency Arrival: 07/12/2023 22:48:08 Discharge: 07/13/2023 02:55:46 LOS: 000 04:07 Checkin: 07/12/2023 22:48:08 Checkout: 07/13/2023 02:55:46 Dispo Type: Home (Routine DC) EVENTS: Event Name Event Status Request Date/Time Start Date/Time Complete Date/Time Arrive Complete 07/12/2023 22:48:08 07/12/2023 22:48:08 07/12/2023 22:48:08 Document Home Meds Request 07/12/2023 22:48:08 Triage Complete 07/12/2023 22:48:08 07/12/2023 23:02:09 07/12/2023 23:02:09 Registration Complete 07/12/2023 22:57:09 07/12/2023 22:57:09 07/12/2023 22:57:09 Reg Complete Request 07/12/2023 22:57:09 Reg Bed Request Complete 07/12/2023 22:57:09 07/12/2023 22:57:09 07/12/2023 22:57:09 Dr Exam Complete 07/12/2023 22:58:35 07/12/2023 22:58:35 07/12/2023 22:58:35 Registration Start 07/12/2023 22:58:35 07/12/2023 23:03:40 Meds Admin Complete 07/12/2023 23:02:05 07/12/2023 23:35:45 Pending Labs Complete 07/12/2023 23:02:05 07/13/2023 00:29:52 Lab Complete 07/12/2023 23:02:05 07/13/2023 00:29:52 Urine Collect Complete 07/12/2023 23:02:05 07/12/2023 23:50:12 EKG Complete 07/12/2023 23:02:08 07/13/2023 01:08:13 Bed Assign Complete 07/12/2023 23:03:40 07/12/2023 23:03:40 07/12/2023 23:03:40 RN Exam Request 07/12/2023 23:03:40 Pending Labs Complete 07/12/2023 23:10:43 07/12/2023 23:10:43 07/12/2023 23:59:19 Pending Labs Complete 07/12/2023 23:57:55 07/12/2023 23:57:55 07/13/2023 00:29:51 Lab Complete 07/12/2023 23:57:55 07/12/2023 23:57:55 07/13/2023 00:29:51 Pending Labs Complete 07/12/2023 23:58:29 07/12/2023 23:58:29 07/13/2023 00:26:01 Pending Labs Complete 07/13/2023 00:04:05 07/13/2023 00:04:05 07/13/2023 00:04:13 Lab Complete 07/13/2023 00:04:05 07/13/2023 00:04:05 07/13/2023 00:04:13 Meds Admin Complete 07/13/2023 00:31:50 07/13/2023 00:57:22 Pending Labs Complete 07/13/2023 01:15:00 07/13/2023 01:15:00 07/13/2023 01:26:23 Pending Labs Complete 07/13/2023 01:23:49 07/13/2023 01:46:42 Lab Complete 07/13/2023 01:23:49 07/13/2023 01:46:42 Meds Admin Request 07/13/2023 01:57:10 Meds Admin Complete 07/13/2023 02:04:11 07/13/2023 02:05:31 Discharge Complete 07/13/2023 02:19:59 07/13/2023 02:55:50 07/13/2023 02:55:50 Transfer Complete 07/13/2023 02:55:50 07/13/2023 02:55:50 07/13/2023 02:55:50 ADDRESS: [address] [facility] [id number] PHYS DOC NOTES: MEDICAL INFORMATION: Prescriptions Given: New Medications [id number], [address] [place], [place] [id number], [phone] famotidine (Pepcid 20 mg Tab) 1 Tablets By Mouth 2 times a day for 10 Days. Refills: 0. ondansetron (Zofran ODT 4 mg Tab-Dis) 1 Tablets By Mouth every 8 hours as needed Nausea/Vomiting. Refills: 0. Medications to Continue with No Changes Other Medications lamotrigine (lamotrigine 200 mg Tab) 1 Tablets By Mouth every day. Refills: 1. lithium (lithium 450 mg oral tablet, extended release) 1 daily am and 2 daily supper. Refills: 3. quetiapine (SEROquel 50 mg Tab) 2 Tablets By Mouth at bedtime. Refills: 1. PATIENT EDUCATION INFORMATION: Instructions: Abdominal Pain, Adult Follow up: With: Address: When: FRANCI ESCALANTE [address] [phone] Business (1) In 3 days DIAGNOSIS: Abdominal pain, epigastric; Light headedness Normal [facility] ED Note-Physicianon 07-13-20 ED Note-Physician Basic Information Time Seen: Alejandra Tenzin 07/12/2023 22:58 Chief Complaint pt to ED with c/o abd pain and nausea all day. hx of reflux. states not taking her meds. denies urinary complaints. denies CP or SOB. also states feeling lightheaded. History of Present Illness HPI: Patient is a 18-year-old female with past medical history of GERD and bipolar 1 disorder who presents the ED for abdominal discomfort and nausea. Patient states that this been going on and off all day today. The pain is in her epigastric abdomen and feels like it goes into the base of her chest. She has had dry heaving but no vomiting. She denies any change in bowel movements. She denies any fever or chills. She denies any urinary symptoms. ROS: Pertinent review of systems conducted and is negative except as noted above. Physical exam: General: nontoxic appearing and in no distress HEENT: Mucous membranes moist Neuro: awake and alert Neck: supple, trachea midline Card: Heart regular rate and rhythm no murmur Resp: Lungs clear to auscultation no wheeze or rhonchi Abd: Soft and nondistended. Mild epigastric tenderness without rebound or guarding Ext: No gross deformity or edema Physical Exam Vitals & Measurements T: 36.4 ?C(Tympanic) HR: 90(Peripheral) RR: 18 BP: 123/78 SpO2: 99% HT: 160 cm WT: 115.5 kg BMI: 45.12 Medical Decision Making MEDICAL DECISION MAKING Number and Complexity of Problems Differential Diagnosis: [] [facility] Data External documents reviewed: N/A My EKG interpretation: Noted in chart if applicable My CT interpretation: N/A My X-ray interpretation: Noted in chart if applicable My Ultrasound interpretation: N/A Decision rules/scores evaluated: N/A Discussed with: N/A Treatment and Disposition ED Course: Patient is nontoxic-appearing no distress. She is nonperitoneal and her pain is all epigastric. Will obtain blood work and urinalysis and give her IV fluids as well as nausea medication. Workup is overall reassuring. Patient was given Maalox as well as IV famotidine. On my reassessment after the medications her pain had significantly improved and she is feeling much better. We discussed the results of her lab work. At this time I feel she is stable for discharge with outpatient prescription for Pepcid and Zofran. She will continue oral hydration and eat easy to digest foods and follow-up close with her primary care physician on an outpatient basis. Shared decision making: As above Code status: N/A Assessment/Plan Abdominal pain, epigastric (R10.13: Epigastric pain) Light headedness (R42: Dizziness and giddiness) Orders: Al hydroxide/Mg hydroxide/simethicone , 30 mL, Susp-Oral, Oral, Once, Stop date 07/13/23 0:31:00 EST, STAT, Start date 07/13/23 0:31:00 EST famotidine, 20 mg = 1 tab(s), Oral, BID, X 10 day(s), # 20 tab(s), Refills(s) 0, Pharmacy: [facility]/pharm[facility] #[id number], 160, cm, 07/12/23 23:02:00 EST, Height/Length Dosing, 115.5, kg, 07/12/23 23:02:00 EST, Weight Dosing famotidine, 20 mg = 2 mL, Soln-IV, IV Push, Once, Stop date 07/13/23 0:31:00 EST, STAT, Start date 07/13/23 0:31:00 EST, 07/13/23 0:31:00 EST ketorolac, 15 mg = 1 mL, Injection, IV Push, Once, Stop date 07/13/23 1:56:00 EST, STAT, Start date 07/13/23 1:56:00 EST, 07/13/23 1:56:00 EST ondansetron, 4 mg = 2 mL, Injection, IV Push, Once, Stop date 07/12/23 23:01:00 EST, STAT, Start date 07/12/23 23:01:00 EST, 07/12/23 23:01:00 EST ondansetron, 4 mg = 2 mL, Injection, IV Push, Once, Stop date 07/13/23 2:03:00 EST, STAT, Start date 07/13/23 2:03:00 EST, 07/13/23 2:03:00 EST ondansetron, 4 mg = 1 tab(s), Oral, q8hr, PRN Nausea/Vomiting, # 20 tab(s), Refills(s) 0, Pharmacy: [facility]/pharmacy #[id number], 160, cm, 07/12/23 23:02:00 EST, Height/Length Dosing, 115.5, kg, 07/12/23 23:02:00 EST, Weight Dosing Sodium Chloride 0.9% intravenous solution, 1,000 mL, Soln-IV, IV, Once, Stop date 07/12/23 23:01:00 EST, STAT, Start date 07/12/23 23:01:00 EST, Infuse over 61, minute(s) Sodium Chloride 0.9% intravenous solution 500 mL, 500 mL, IV, 500 mL/hr, for 60 minute(s), Stop date 07/13/23 2:56:00 EST, STAT, Start date 07/13/23 1:57:00 EST, 1 hour(s), Total volume (mL): 500, 115.5 kg, 2.27, m2 Add on Test Add on Test Automated Diff Basic Metabolic Panel CBC w/ Auto Diff D-Dimer eGFR Hepatic Function Panel Lipase Level Troponin 0 Hr. U Beta Hcg Qual UA With Cult Reflex Medications Administered Given NS 500 mL Soln-IV 500 mL, 500 mL, IV Al hydroxide/Mg hydroxide/simethicone 200 mg-200 mg-20 mg/5 mL oral suspension, 30 mL, Oral famotidine 10 mg/mL IV Cici, 20 mg, IV Push NS 1000 ml Bolus, 1000 mL, IV ondansetron 4 mg/2 mL Inj, 4 mg, IV Push Zofran 4 mg/2 mL Injection, 4 mg, IV Push Disposition Plan Discharge Prescription List Prescriptions Pepcid 20 mg Tab, 20 mg= 1 tab(s), Oral, BID Zofran ODT 4 mg Tab-Dis, 4 mg= 1 tab(s), Oral, q8hr, PRN Follow-up With When Contact Information FRANCI ESCALANTE In [address] [place] [address] [place] (more content not included)... Normal [facility] Comment on above: Result Comment: Elec tronically Signed By: Tenzin Roberts DO\.br\Date and Time Signed: 07/13/23 02:21 EST ED Patient Education Noteon 07-13-2023 ED Patient Education Note Gastroenterology Abdominal Pain, Adult Pain in the abdomen (abdominal pain) can be caused by many things. Often, abdominal pain is not serious and it gets better with no treatment or by being treated at home. However, sometimes abdominal pain is serious. Your health care provider will ask questions about your medical history and do a physical exam to try to determine the cause of your abdominal pain. Follow these instructions at home: Medicines ? Take efie-qhg-goagvir and prescription medicines only as told by your health care provider. ? Do not take a laxative unless told by your health care provider. General instructions ? Watch your condition for any changes. ? Drink enough fluid to keep your urine pale yellow. ? Keep all follow-up visits as told by your health care provider. This is important. Contact a health care provider if: ? Your abdominal pain changes or gets worse. ? You are not hungry or you lose weight without trying. ? You are constipated or have diarrhea for more than 2?3 days. ? You have pain when you urinate or have a bowel movement. ? Your abdominal pain wakes you up at night. ? Your pain gets worse with meals, after eating, or with certain foods. ? You are vomiting and cannot keep anything down. ? You have a fever. ? You have blood in your urine. Get help right away if: ? Your pain does not go away as soon as your health care provider told you to expect. ? You cannot stop vomiting. ? Your pain is only in areas of the abdomen, such as the right side or the left lower portion of the abdomen. Pain on the right side could be caused by appendicitis. ? You have bloody or black stools, or stools that look like tar. ? You have severe pain, cramping, or bloating in your abdomen. ? You have signs of dehydration, such as: ? Dark urine, very little urine, or no urine. ? Cracked lips. ? Dry mouth. ? Sunken eyes. ? Sleepiness. ? Weakness. ? You have trouble breathing or chest pain. Summary ? Often, abdominal pain is not serious and it gets better with no treatment or by being treated at home. However, sometimes abdominal pain is serious. ? Watch your condition for any changes. ? Take oase-mfr-tixbtcm and prescription medicines only as told by your health care provider. ? Contact a health care provider if your abdominal pain changes or gets worse. ? Get help right away if you have severe pain, cramping, or bloating in your abdomen. This information is not intended to replace advice given to you by your health care provider. Make sure you discuss any questions you have with your health care provider. Document Revised: 09/08/2020 Document Reviewed: 11/29/2019 [employer] Patient Education ? 2022 [employer] Normal [facility] ED Patient Summaryon 023 ED Patient Summary [address] [address] Patient Discharge Instructions Person Information Name: LIZZIE MULLER Age: 18 Years Arrival Date: 07/12/2023 22:48:08 Discharge Diagnosis: Abdominal pain, epigastric; Light headedness Primary Care Physician: FRANCI ESCALANTE CNP Provider Information Primary Provider: Tenzin Roberts DO Advanced Cross Cut Saw Operator:None The exam and treatment you received in the Emergency Department were for an urgent problem and are not intended as complete care. It is important that you follow up with a doctor, nurse practitioner, or physician?s residential living assistant for ongoing care. If your symptoms become worse or you do not improve as expected and you are unable to reach your usual health care provider, you should return to the Emergency Department. We are available 24 hours a day. LIZZIE MULLER has been given the following list of patient education materials, prescriptions and follow-up instructions: Follow-up Instructions: With: Address: When: FRANCI ESCALANTE [address] [facility] [address] [place] [phone] Business (1) In 3 days In the event that this physician does not participate in your insurance network, please consult with your insurance company to find a nearby participating provider. Patient Education Materials: Abdominal Pain, Adult A MESSAGE TO ALL PATIENTS REGARDING OPIOIDS PRESCRIPTION OPIOIDS: WHAT YOU NEED TO KNOW Prescription opioids can be used to help relieve rbpasxrb-js-drphsh pain and are often prescribed following a surgery or injury, or for certain health conditions. These medications can be an important part of the treatment but also come with serious risks. It is important to work with your healthcare provider to make sure you are getting the safest, most effective care. WHAT ARE THE RISKS AND SIDE EFFECTS OF OPIOID USE? Prescription opioids carry serious risks of addiction and overdose, especially with prolonged use. An opioid overdose, often marked by slowed breathing, can cause sudden . The use of prescription opioids can have a number of side effects as well, even when taken as directed: ? Tolerance?meaning you might need to take more of the medication for the same pain relief ? Physical dependence?meaning you have symptoms of withdrawal when a medication is stopped ? Increased sensitivity to pain ? Constipation ? Nausea, vomiting, and dry mouth ? Sleepiness and dizziness ? Confusion ? Depression ? Low levels of testosterone that can result in lower sex drive, energy, and strength ? Itching and sweating RISKS ARE GREATER WITH: ? History of drug misuse, substance use disorder, or overdose ? Mental health conditions (such as depression or anxiety) ? Sleep apnea ? Older age (65 years and older) ? Avoid alcohol while taking prescription opioids. Also, unless specifically advised by your health care provider, medications to avoid include: ? Benzodiazepines (such as Xanax or Valium) ? Muscle relaxants (such as Soma or Flexeril) ? Hypnotics (such as Ambien or Lunesta) ? Other prescription opioids KNOW YOUR OPTIONS Talk to your health care provider about ways to manage your pain that don?t involve prescription opioids. Some of these options may actually work better and have fewer risks and side effects. Options may include: ? Pain relievers such as acetaminophen, ibuprofen, and naproxen ? Some medication that are also used for depression or seizures ? Physical therapy and exercise ? Cognitive behavioral therapy, a psychological, goal-directed approach, in which patients learn how to modify physical, behavioral, and emotional triggers of pain and stress. IF YOU ARE PRESCRIBED OPIOIDS FOR PAIN: ? Never take opioids in greater amounts or more often than prescribed. ? Follow up with your primary health care provider. o Work together to create a plan on how to manage your pain. o Talk about ways to help manage your pain that don?t involve prescription opioids. o Talk about any and all concerns and side effects. ? Help prevent misuse and abuse o Never sell or share prescription opioids. o Never use another person?s prescription opioids. ? Store prescription opioids in a secure place and out of reach of others (this may include visitors, children, friends, and family). ? Safely dispose of unused prescription opioids: Find your community drug take-back program or your pharmacy mail-back program, or flush them down the toilet, following guidance from the Food and Drug Administration (www.fda.gov/Drugs/Re sourcesForYou). ? Visit www.cdc.gov/drugoverd ose to learn about the risks of opioids abuse and overdose. ? If you believe you may be struggling with addiction, tell your health social worker palliative care and ask for guidance or call SAMHSA?S National Helpline at 4-450-874-HELP. v [facility] (more content not included)... Normal [facility] Hep Func Panelon 07-13-2023 Bilirubin.indirect [Mass or moles/Vol] UTC Abnormal 0.1-0.9 [facility] Comment on above: Result Comment: Resu lt verified by Discern Rule. Performed result UTC (Unable to Calculate) was sent as an Alpha code due the inability to calculate a valid numeric value. Performed By: #### 1 [id number], [id number], 6164569, 50004485, 8246052, 9765873, 7622508 ####[facility] [address] [place] [address] Albumin [Mass/Vol] 3.6 g/dL Normal 3.3-5.0 [facility] Comment on above: Performed By: #### 1 [id number], 0079661, 3137427, 79070555, 9849679, 9972501, 6256779 ####[facility] [address] [place] [address] Albumin/Globulin (S) [Mass conc ratio] 1.0 Low 1.1-2.2 [facility] Comment on above: Performed By: #### 1 [id number], 9529533, 4435911, 82162268, 7681892, 5528332, 7042192 ####[address] [place] [address] [place] [address] ALP [Catalytic activity/Vol] 101 Int._Unit/L High 21-98 [facility] Comment on above: Performed By: #### 1 4940693, 8785696, 4644000, 80148395, 9053374, 3594922, 4032976 ####[address] [address] ALT No additional P-5'-P [Catalytic activity/Vol] 20 Int._Unit/L Normal 6-46 [facility] Comment on above: Performed By: #### 1 [id number], 0190945, 0212870, 68214334, 9241290, 1248866, 8834768 ####[facility] [address] [place] [address] AST [Catalytic activity/Vol] 16 Int._Unit/L Normal 5-43 [facility] Comment on above: Performed By: #### 1 1336940, 5122251, 6149606, 03406276, 4708483, 5638659, 0971079 ####[address] [place] [address] Bilirubin [Mass/Vol] 0.5 mg/dL Normal 0.0-1.1 [facility] Comment on above: Performed By: #### 1 0543730, 0190573, 1770920, 10226310, 8256087, 7349566, 6604551 ####[facility] [address] [place] [address] Globulin (S) [Mass/Vol] 3.7 g/dL Normal 1.4-4.0 [facility] Comment on above: Performed By: #### 1 4491471, 9865673, 6864863, 28830366, 1414668, 2038559, 7106728 ####[facility] [address] [place] [address] Protein [Mass/Vol] 7.3 g/dL Normal 6.0-7.8 [facility] Comment on above: Performed By: #### 1 2562585, 6744093, 6699039, 85130627, 7598571, 8354538, 3506568 ####[facility] [address] [place] [address] Bilirubin.direct [Mass/Vol] mg/dL Normal 0.1-0.4 [facility] Comment on above: Performed By: #### 1 6072110, 1274988, 5015499, 36844728, 2541373, 3106979, 9656863 ####[facility] [address] [place] [address] Lipase Levelon 07-13-2023 Lipase [Catalytic activity/Vol] 24 U/L Normal 13-58 [facility] Comment on above: Performed By: #### 1 [id number], 1060279, 1830193, 49350213, 4261673, 3504429, 5713654 ####[facility] [address] [place] [address] Troponin 0 Hr.on 07-13-2023 Troponin I.cardiac [Mass/Vol] 2.40 pg/mL Low 10.10-27.10 [facility] Comment on above: Result Comment: The 95% CI (Confidence Interval) PPV (Positive Predictive Value) for myocardial infarction in females is 38 pg/mL, in males 51 pg/mL. The results should be used in conjunction with clinical conditions of myocardial infarction. (Access High Sensitivity Troponin I Instructions For Use, Felicitas Joseph, March 2018) Performed By: #### 1 [id number], 2780789, 8640520, 37472233, 3802056, 9940889, 0349111 ####[facility] [address] [place] [address] U BetaHcg Qualon 07-13-2023 HCG.beta subunit (U) [Moles/Vol] Negative Normal [facility] Comment on above: Performed By: #### 2 3937118, [id number] ####[facility] [address] [place] [address] UA With Cult Reflexon 2022 Bacteria LM Ql (Urine sed) TRACE Normal Trace [facility] Comment on above: Performed By: #### 2 [id number], [id number] ####[facility] [address] [place] [address] Bilirubin Ql (U) 1+ Abnormal Negative [facility] Comment on above: Performed By: #### 2 0361272, [id number] ####[facility] [address] [place] [address] Clarity (U) SL CLOUDY Invalid Interpretation Code [facility] Comment on above: Performed By: #### 2 [id number], [id number] ####[facility] [address] [place] [address] Color (U) YELLOW Normal Yellow [facility] Comment on above: Performed By: #### 2 7240589, [id number] ####[address] [place] [address] Epithelial cells.squamous LM.HPF (Urine sed) [#/Area] 5-8 Normal 0-2 [facility] Comment on above: Performed By: #### 2 6536933, [id number] ####[facility] [address] [place] [address] Glucose Test strip (U) [Mass/Vol] Negative Normal Negative [facility] Comment on above: Performed By: #### 2 [id number], [id number] ####[facility] [id number] [place] [address] Hemoglobin Ql (U) Negative Normal Negative [facility] Comment on above: Performed By: #### 2 [id number], [id number] ####[facility] [address] [place] [address] Ketones (U) [Mass/Vol] Negative Normal Negative [facility] Comment on above: Performed By: #### 2 [id number], [id number] ####[address] [address] [place].plasma/[place]. RBC (Bld) [Mass ratio] 4-20 Normal 0-3 [facility] Comment on above: Performed By: #### 2 [id number], [id number] ####[address] [address] Mucus Ql (Urine sed) 3+ Normal [facility] Comment on above: Performed By: #### 2 [id number], [id number] ####[facility] [address] [place] [address] Nitrite Ql (U) Negative Normal Negative [facility] Comment on above: Performed By: #### 2 [id number], [id number] ####[facility] [address] [place] [address] pH (U) 5.5 [pH] Invalid Interpretation Code 5.0-9.0 [facility] Comment on above: Performed By: #### 2 [id number], [id number] ####[facility] [address] [place] [address] Protein (U) [Mass/Vol] TRACE Abnormal Negative [facility] Comment on above: Performed By: #### 2 [id number], [id number] ####[address] [place] [address] Specific gravity (U) [Rel density] >=1.030 Invalid Interpretation Code 1.005-1.030 [facility] Comment on above: Performed By: #### 2 [id number], [id number] ####[place] [address] Type of Urine collection method Clean Catch Normal [facility] Comment on above: Performed By: #### 2 [id number], [id number] ####[place] [address] Urobilinogen Qn (U) 0.2 {Erin'U}/dL Normal 0.0-1.0 [facility] Comment on above: Performed By: #### 2 [id number], [id number] ####[place] [address] WBC Auto Ql (U) Negative Normal Negative [facility] Comment on above: Performed By: #### 2 [id number], [id number] ####[place] [address] WBC casts LM.LPF (Urine sed) [#/Area] 0-3 Normal [facility] Comment on above: Performed By: #### 2 [id number], [id number] ####[place] [address] WBC LM.HPF (Urine sed) [#/Area] 0-5 Normal 0-5 [facility] Comment on above: Performed By: #### 2 [id number], [id number] ####[place] [address] eGFRon 07-13-2023 GFR/1.73 sq M.predicted among non-blacks MDRD (S/P/Bld) [Vol rate/Area] 94 mL/min/1.73 m2 Normal >=59 [facility] Comment on above: Order Comment: Order added by Discern Expert. Result Comment: [employer] Clerk deo kidney disease could be indicated at eGFR's of less than 60 mL/min/1.73m2. Kidney failure is indicated at less than 15 mL/min/1.73m2. Performed By: #### 1 [id number], [id number], [id number] ####Read [facility] [id number] CHEMISTRYOrdered By: SYSTEM SYSTEM on 07-12-2023 Albumin [Mass/Vol] 3.6 g/dL Normal 3.3 - 5.0 gm/dL [facility] Albumin/Globulin [Mass ratio] 1.0 {ratio} Low 1.1 - 2.2 [facility] ALP [Catalytic activity/Vol] 101 [iU]/d High 21 - 98 Int._Unit/L [facility] ALT No additional P-5'-P [Catalytic activity/Vol] 20 [iU]/d Normal 6 - 46 Int._Unit/L [facility] Anion gap [Moles/Vol] 10 mmol/L Normal 6 - 16 mEq/L [facility] AST [Catalytic activity/Vol] 16 [iU]/d Normal 5 - 43 Int._Unit/L [facility] Bilirubin [Mass/Vol] 0.5 mg/dL Normal 0.0 - 1 .1 mg/dL [facility] Bilirubin.direct [Mass/Vol] mg/dL Normal 0.1 - 0.4 mg/dL [facility] Bilirubin.indirect [Mass or moles/Vol] Unable to Calculate mg/dL Invalid Interpretation Code 0.1 - 0.9 mg/dL [facility] Calcium [Mass/Vol] 8.9 mg/dL Normal 8.9 - 11. 1 mg/dL [facility] Chloride [Moles/Vol] 108 mmol/L Normal 101 - 1 11 mmol/L [facility] CO2 [Moles/Vol] 24 mmol/L Normal 21 - 31 mmol/L [facility] Creatinine [Mass/Vol] 0.9 mg/dL Normal 0.5 - 1.3 mg/dL [facility] GFR/1.73 sq M.predicted among non-blacks MDRD (S/P/Bld) [Vol rate/Area] 94 mL/min/1.73 m2 Normal >=59mL/min/ 1.73 m2 [facility] S Comment on above: Interpretive Data: C hronic kidney disease could be indicated at eGFR's of less than 60 mL/min/1.73m2. Kidney failure is indicated at less than 15 mL/min/1.73m2. Globulin (S) [Mass/Vol] 3.7 g/dL Normal 1.4 - 4.0 gm/dL [facility] Glucose [Mass/Vol] 85 mg/dL Normal 55 - 199 mg/dL [facility] Comment on above: Interpretive Data: I f this glucose result represents a fasting glucose, interpretation should refer to the following reference range: 55-99 mg/dL Lipase [Catalytic activity/Vol] 24 U/L Normal 13 - 58 unit/L [facility] Potassium [Moles/Vol] 3.6 mmol/L Normal 3.5 - 5.3 mmol/L [facility] Protein [Mass/Vol] 7.3 g/dL Normal 6.0 - 7.8 gm/dL [facility] Sodium [Moles/Vol] 138 mmol/L Normal 135 - 145 mmol/L [facility] Troponin I.cardiac [Mass/Vol] 2.40 pg/mL Low 10.10 - 27.10 pg/mL [facility] Comment on above: Interpretive Data: T he 95% CI (Confidence Interval) PPV (Positive Predictive Value) for myocardial infarction in females is 38 pg/mL, in males 51 pg/mL. The results should be used in conjunction with clinical conditions of myocardial infarction. (Access High Sensitivity Troponin I Instructions For Use, Felicitas Joseph, March 2018) Urea nitrogen [Mass/Vol] 7 mg/dL Normal 5 - 21 mg/dL [facility] Urea nitrogen/Creatinine [Mass ratio] 8 mg/mg Low 10 - 20 [facility] HEMATOLOGYOrdered By: SYSTEM SYSTEM on 07-12-2023 Basophils/100 WBC (Bld) 0.4 % Normal 0.0 - 2.0 % [facility] HemeAutoSS Basophils/Leukocytes Auto (Bld) [Pure # fraction] 0.1 E9/L Normal 0.0 - 0.2 E9/L [facility]eAuto[facility] Eosinophils/100 WBC (Bld) 1.0 % Normal 0.0 - 8.0 % [facility]eAuto[facility] Eosinophils/Leukocytes Auto (Bld) [Pure # fraction] 0.1 E9/L Normal 0.0 - 0.5 E9/L [facility]eAutoSS Lymphocytes/100 WBC (Bld) 26.5 % Normal 14.0 - 50.0 % [facility]eAutoSS Lymphocytes/Leukocytes Auto (Bld) [Pure # fraction] 3.7 E9/L Normal 1.0 - 4.0 E9/L [facility] HemeAutoSS Monocytes/100 WBC (Bld) 6.5 % Normal 4.0 - 14.0 % [facility]eAutoSS Monocytes/Leukocytes Auto (Bld) [Pure # fraction] 0.9 E9/L Normal 0.2 - 1.0 E9/L [facility]eAutoSS Neutrophils/100 WBC (Bld) 65.6 % Normal 36.0 - 75.0 % [facility]eAutoSS Neutrophils/Leukocytes Auto (Bld) [Pure # fraction] 9.1 E9/L High 2.0 - 7.5 E9/L [facility]eAutoSS HEMATOLOGYOrdered By: Storm Marks on 07-12-2023 Erythrocyte distribution width (RBC) [Ratio] 14.5 % High 10.9 - 14.2 % [facility]eAutoSS Hematocrit (Bld) [Volume fraction] 37.8 % Normal 34.0 - 46.0 % [facility]eAutoSS Hemoglobin (Bld) [Mass/Vol] 12.3 g/dL Normal 12.0 - 16.0 gm/dL [facility]eAuto[facility] MCH (RBC) [Entitic mass] 26.0 pg Low 27.0 - 34.0 pg [facility]eAuto[facility] MCHC (RBC) [Mass/Vol] 32.6 g/dL Normal 31.4 - 36.0 gm/dL [facility]eAutoSS MCV (RBC) [Entitic vol] 79.7 fL Low 80.0 - 100.0 fL [facility]eAutoSS Platelet mean volume (Bld) [Entitic vol] 8.7 fL Normal 6.4 - 10.8 fL [facility]eAutoSS Platelets (Bld) [#/Vol] 333.0 E9/L Normal 150. 0 - 500.0 E9/L [facility]eAutoSS RBC (Bld) [#/Vol] 4.7 E12/L Normal 4.3 - 5.9 E12/L [facility]eAutoSS WBC corrected for nucl RBC Auto (Bld) [#/Vol] 13.9 E9/L High 4.0 - 11.0 E9/L [facility] HemeAutoSS SEROLOGYOrdered By: Charlotte Marks on 07-12-2023 HCG.beta subunit (U) [Moles/Vol] Negative Normal [facility] Man Sero URINALYSISOrdered By: Storm Marks on 07-12-2023 Bacteria LM Ql (Urine sed) Trace /HPF Normal Trace/HPF [facility] UA Auto SS Bilirubin Ql (U) 1+ *ABN* (07/12/23 11:38 PM) Invalid Interpretation Code Negative [facility] UA Auto SS Clarity (U) SL CLOUDY Invalid Interpretation Code [facility] UA Auto SS Color (U) Yellow (07/12/23 11:38 PM) Normal Yellow [facility] UA Auto SS Epithelial cells.squamous LM.HPF (Urine sed) [#/Area] 5-8 /HPF Normal 0-2/HPF [facility] UA Aut o SS Glucose Test strip (U) [Mass/Vol] Negative (07/12/23 11:38 PM) Normal Negative [facility] UA Auto SS Hemoglobin Ql (U) Negative (07/12/23 11:38 PM) Normal Negative [facility] UA Auto SS Ketones (U) [Mass/Vol] Negative (07/12/23 11:38 PM) Normal Negative [facility] UA Auto SS [place].plasma/[place]. RBC (Bld) [Mass ratio] 4-20 /HPF Normal 0-3/HPF [facility]A A uto SS Mucus Ql (Urine sed) 3+ (07/12/23 11:38 PM) Normal [facility] UA Auto SS Nitrite Ql (U) Negative (07/12/23 11:38 PM) Normal Negative [facility] UA Auto SS pH (U) 5.5 *NA* (07/12/23 11:38 PM) Invalid Interpretation Code 5.0 - 9.0 [facility] UA Auto SS Protein (U) [Mass/Vol] Trace *ABN* (07/12/23 11:38 PM) Invalid Interpretation Code Negative [facility] UA Auto SS Specific gravity (U) [Rel density] >=1.030 *NA* (07/12/23 11:38 PM) Invalid Interpretation Code 1.005 - 1.030 [facility] UA Auto SS UA Spec Desc Clean Catch (07/12/23 11:38 PM) Normal [facility] UA Auto SS Urobilinogen Qn (U) 0.4308508 {Erin'U}/dL Normal 0.0 - 1.0 EU/dL [facility] UA Auto SS WBC Auto Ql (U) Negative (07/12/23 11:38 PM) Normal Negative [facility] UA Auto SS WBC casts LM.LPF (Urine sed) [#/Area] 0-3 (07/12/23 11:38 PM) Normal [facility] UA Auto SS WBC LM.HPF (Urine sed) [#/Area] 0-5 /HPF Normal 0-5/HPF [facility] UA Auto SS Cholesterol [Mass/volume] in Serum or PlasmaOrdered By: Maurilio Hackett on 06-11-2023 Cholesterol [Mass/Vol] 160 mg/dL 140-200 [facility] Comment on above: Chol less than 200 m g/dl low riskChol 201-239 mg/dl borderline riskChol 240 mg/dl and greater high risk Cholesterol in LDL Calc [Mas s/Vol]Ordered By: Maurilio Hackett on 06-11-2023 Cholesterol in LDL [Mass/Vol] 103 mg/dL 0-100 [facility] Comment on above: LDL ATP III CLASSIFI CATIONLDL less than 100 mg/dL OptimalLDL 100-129 mg/dL Near or above optimalLDL 130-159 mg/dL Borderline highLDL 160-189 mg/dL HighLDL greater than 189 mg/dL Very high Cholesterol in VLDL Calc [Ma ss/Vol]Ordered By: Maurilio Hackett on 06-11-2023 Cholesterol in VLDL [Mass/Vol] 19 mg/dL [facility] Serum or plasma high density lipoprotein (HDL) cholesterol measurementOrdered By: Maurilio Hackett on 06-11-2023 Cholesterol in HDL [Mass/Vol] 38 mg/dL 23-92 [facility] Comment on above: HDL CHOL ATP-III CLA SSIFICATION Cardiovascular RiskHDL > or equal to 60 mg/dL LOWHDL < 40 mg/dL HIGH Serum or plasma total choles terol/high density lipoprotein (HDL) cholesterol mass ratOrdered By: Maurilio Hackett on 06-11-2023 Cholesterol.total/Shahla sterol in HDL [Mass ratio] 4.2 {ratio} <5.0 [facility] Thyrotropin [Units/volume] i n Serum or PlasmaOrdered By: Maurilio Hackett on 06-11-2023 TSH Qn 0.57 m[IU]/L 0.45-5.33 [facility] Triglyceride [Mass/volume] i n Serum or PlasmaOrdered By: Maurilio Hackett on 06-11-2023 Triglyceride [Mass/Vol] 97 mg/dL 0-149 [facility] Comment on above: TRIG ATP III CLASSIF ICATIONTRIG less than 150 mg/dL NormalTRIG 150-199 mg/dL Borderline highTRIG 200-500 mg/dL High TRIG greater than 500 mg/dL Very highStandard traceable to the Center for Disease Conrtrol and Prevention (CDC) test method. Vitamin D+Metabolites [Mass/ volume] in Serum or PlasmaOrdered By: Maurilio Hackett on 06-11-2023 Vitamin D+Metabolites [Mass/Vol] 21.4 ng/mL 30-100 [facility] Comment on above: VITAMIN D STATUS 25( [place])VITAMIN D RANGE (ng/mL) Deficient <20 Insufficient 20 to <30Sufficient 30 to 100Reference: Naren MF,Lizette NC, Ирина CAMEJO, et al. Evaluation,treatment, and prevention of vitamin D deficiency; an Endocrine Society clinical practice guideline. JCEM. 2010; 96(7):1911-30. Alanine aminotransferase [En zymatic activity/volume] in Serum or PlasmaOrdered By: Mia Arrieta on 06-10-2023 ALT [Catalytic activity/Vol] 16 U/L 7-52 [facility] Albumin [Mass/volume] in Ser um or Plasma by Bromocresol green (BCG) dye binding methoOrdered By: Mia Arrieta on 06-10-2023 Albumin BCG dye [Mass/Vol] 4.3 g/dL 3.5-5.7 [facility] Alkaline phosphatase [Enzyma tic activity/volume] in Serum or PlasmaOrdered By: Mia Arrieta on 06-10-2023 ALP [Catalytic activity/Vol] 120 U/L 34-104 [facility] Amphetamine Screen Ql (U)Ord ered By: Mia Arrieta on 06-10-2023 Amphetamines Ql (U) Negative Negative [facility] Aspartate aminotransferase [ Enzymatic activity/volume] in Serum or PlasmaOrdered By: Mia Arrieta on 06-10-2023 AST [Catalytic activity/Vol] 15 U/L 13-39 [facility] Automated erythrocytes count in urine sediment (number/area)Ordered By: Mia Arrieta on 06-10-2023 RBC Auto (Urine sed) [#/Area] 1-2 [HPF] 0-4 [facility] Automated leukocytes count i n urine sediment (number/area)Ordered By: Mia Arrieta on 06-10-2023 WBC Auto (Urine sed) [#/Area] 20-49 [HPF] 0-4 [facility] Barbiturates [Presence] in U rine by Screen methodOrdered By: Mia Arrieta on 06-10-2023 Barbiturates Screen Ql (U) Negative Negative [facility] Basophils Auto (Bld) [#/Vol] Ordered By: Mia Arrieta on 06-10-2023 Basophils (Bld) [#/Vol] 0.1 10*3/uL 0.0-0.2 [facility] Basophils/100 WBC Auto (Bld) Ordered By: Mia Arrieta on 06-10-2023 Basophils/100 WBC (Bld) 0.9 % . [facility] Benzodiazepines Screen Ql (U )Ordered By: Mia Arrieta on 06-10-2023 Benzodiazepines Ql (U) Negative Negative [facility] Benzoylecgonine [Presence] i n Urine by Screen methodOrdered By: Mia Arrieta on 06-10-2023 Benzoylecgonine Screen Ql (U) Negative Negative [facility] Bilirubin Test strip Ql (U)O rdered By: Mia Arrieta on 06-10-2023 Bilirubin Ql (U) Negative Negative [facility] Bilirubin.total [Mass/volume ] in Serum or PlasmaOrdered By: Mia Arrieta on 06-10-2023 Bilirubin [Mass/Vol] 0.4 mg/dL 0.3-1.0 [facility] Calcium [Mass/volume] in Ser um or PlasmaOrdered By: Mia Arrieta on 06-10-2023 Calcium [Mass/Vol] 9.2 mg/dL 8.6-10.3 [facility] Cannabinoids [Presence] in U rine by Screen methodOrdered By: Mia Arrieta on 06-10-2023 Cannabinoids Screen Ql (U) Positive Negative [facility] Comment on above: These are unconfirme d results and should not be used for legal purposes. Drug Cut-Off Concentration: AMPH 1000 ng/mL SUSANA 200 ng/mL JOSHUA 200 ng/mL COCM 300 ng/mL OP 300 ng/mL PCP 25 ng/mL THC 20 ng/mL Carbon dioxide, total [Moles /volume] in Serum or PlasmaOrdered By: Mia Arrieta on 06-10-2023 CO2 [Moles/Vol] 23.0 mmol/L 21.0-31.0 [facility] Chloride [Moles/volume] in S katie or PlasmaOrdered By: Mia Arrieta on 06-10-2023 Chloride [Moles/Vol] 107 mmol/L 98-107 [facility] Color Auto (U)Ordered By: Clayton Arrieta on 06-10-2023 Color (U) Yellow Yellow [facility] Creatinine [Mass/volume] in Serum or PlasmaOrdered By: Mia Arrieta on 06-10-2023 Creatinine [Mass/Vol] 0.67 mg/dL 0.60-1.20 [facility] Eosinophils Auto (Bld) [#/Vo l]Ordered By: Mia Arrieta on 06-10-2023 Eosinophils (Bld) [#/Vol] 0.2 10*3/uL 0.0-0.45 [facility] Eosinophils/100 WBC Auto (Bl d)Ordered By: Mia Arrieta on 06-10-2023 Eosinophils/100 WBC (Bld) 1.4 % . [facility] Erythrocyte distribution wid th Auto (RBC) [Ratio]Ordered By: Mia Arrieta on 06-10-2023 Erythrocyte distribution width (RBC) [Ratio] 15.0 % 11.9-15.3 [facility] Ethanol [Mass/volume] in Ser um or PlasmaOrdered By: Mia Arrieta on 06-10-2023 Ethanol [Mass/Vol] mg/dL [facility] Ethanol [Mass/Vol] TNP [facility] Comment on above: Test not performed Globulin Calc (S) [Mass/Vol] Ordered By: Mia Arrieta on 06-10-2023 Globulin (S) [Mass/Vol] 3.5 g/dL [facility] Glucose [Mass/volume] in Ser um or PlasmaOrdered By: Mia Arrieta on 06-10-2023 Glucose [Mass/Vol] 76 mg/dL 70-100 [facility] Comment on above: ADA recommended refe rence rangeRandom Glucose Reference Range is dependent on time and content of last meal. Glucose of more than 200 mg/dL in a nonstressed, ambulatory subject supports the diagnosis of Diabetes Mellitus. HCG ( test) IA.rapi d Ql (U)Ordered By: Mia Arrieta on 06-10-2023 HCG ( test) Ql (U) Negative [facility] Hematocrit Auto (Bld) [Volum e fraction]Ordered By: Mia Arrieta on 06-10-2023 Hematocrit (Bld) [Volume fraction] 41.6 % 34.0-46.4 [facility] Hemoglobin [Mass/volume] in BloodOrdered By: Mia Arrieta on 06-10-2023 Hemoglobin (Bld) [Mass/Vol] 13.5 g/dL 11.8-15.4 [facility] Ketones Auto test strip (U) [Mass/Vol]Ordered By: Mia Arrieta on 06-10-2023 Ketones (U) [Mass/Vol] Negative Negative [facility] - UrinalysisOrder ed By: Mia Arrieta on 06-10-2023 Hyaline casts LM Ql (Urine sed) None seen [LPF] 0-8 [facility] Leukocytes [#/volume] correc renetta for nucleated erythrocytes in Blood by Automated counOrdered By: Mia Arrieta on 06-10-2023 WBC corrected for nucl RBC Auto (Bld) [#/Vol] 13.7 10*3/uL 3.8-11.6 [facility] Lymphocytes Auto (Bld) [#/Vo l]Ordered By: Mia Arrieta on 06-10-2023 Lymphocytes (Bld) [#/Vol] 2.7 10*3/uL 1.00-4.8 [facility] Lymphocytes/100 WBC Auto (Bl d)Ordered By: Mia Arrieta on 06-10-2023 Lymphocytes/100 WBC (Bld) 19.4 % . [facility] MCH Auto (RBC) [Entitic mass ]Ordered By: Mia Arrieta on 06-10-2023 MCH (RBC) [Entitic mass] 26.3 pg 24.7-34.3 [facility] MCHC Auto (RBC) [Mass/Vol]Or dered By: Mia Arrieta on 06-10-2023 MCHC (RBC) [Mass/Vol] 32.4 g/dL 32.0-35.0 [facility] MCV Auto (RBC) [Entitic vol] Ordered By: Mia Arrieta on 06-10-2023 MCV (RBC) [Entitic vol] 81.2 fL 80-100 [facility] Monocyte distribution width [Entitic volume] in Blood by AutomatedOrdered By: Mia Arrieta on 06-10-2023 Monocyte distribution width Auto (Bld) [Entitic vol] 18.32 % 0.00-20.00 [facility] Monocytes Auto (Bld) [#/Vol] Ordered By: Mia Arrieta on 06-10-2023 Monocytes (Bld) [#/Vol] 0.7 10*3/uL 0.0-0.8 [facility] Monocytes/100 WBC Auto (Bld) Ordered By: Mia Arrieta on 06-10-2023 Monocytes/100 WBC (Bld) 5.3 % . [facility] Neutrophils Auto (Bld) [#/Vo l]Ordered By: Mia Arrieta on 06-10-2023 Neutrophils (Bld) [#/Vol] 10.0 10*3/uL 1.8-7.7 [facility] Neutrophils/100 WBC Auto (Bl d)Ordered By: Mia Arrieta on 06-10-2023 Neutrophils/100 WBC (Bld) 73.0 % . [facility] Nitrite Test strip Ql (U)Ord ered By: Mia Arrieta on 06-10-2023 Nitrite Ql (U) Negative Negative [facility] No Panel InformationOrdered By: Mia Arrieta on 06-10-2023 Estimated GFR (CKD-EPI) > 60.0 mL/Min [facility] Creatinine Clearance (Chem 162.81 [facility] Nucleated erythrocytes [Pres ence] in Blood by Automated countOrdered By: Mia Arrieta on 06-10-2023 Nucleated RBC Auto Ql (Bld) 0.1 /100{WBC} 0-0.5 [facility] Opiates [Presence] in Urine by Screen methodOrdered By: Mia Arrieta on 06-10-2023 Opiates Screen Ql (U) Negative Negative [facility] Phencyclidine Screen Ql (U)O rdered By: Mia Arrieta on 06-10-2023 Phencyclidine Ql (U) Negative Negative [facility] Platelet mean volume Auto (B ld) [Entitic vol]Ordered By: Mia Arrieta on 06-10-2023 Platelet mean volume (Bld) [Entitic vol] 8.7 fL 6.3-10.7 [facility] Platelets Auto (Bld) [#/Vol] Ordered By: Mia Arrieta on 06-10-2023 Platelets (Bld) [#/Vol] 366 10*3/uL 150-450 [facility] Potassium [Moles/volume] in Serum or PlasmaOrdered By: Mia Arrieta on 06-10-2023 Potassium [Moles/Vol] 4.3 mmol/L 3.5-5.1 [facility] Protein Auto test strip (U) [Mass/Vol]Ordered By: Mia Arrieta on 06-10-2023 Protein (U) [Mass/Vol] Negative Negative [facility] Protein [Mass/volume] in Ser um or PlasmaOrdered By: Mia Arrieta on 06-10-2023 Protein [Mass/Vol] 7.8 g/dL 6.4-8.9 [facility] RBC Auto (Bld) [#/Vol]Ordere d By: Mia Arrieta on 06-10-2023 RBC (Bld) [#/Vol] 5.12 10*6/uL 3.60-5.00 [facility] Serum or plasma albumin/glob ulin mass ratioOrdered By: Mia Arrieta on 06-10-2023 Albumin/Globulin [Mass ratio] 1.2 {ratio} [facility] Serum or plasma anion gap de terminationOrdered By: Mia Arrieta on 06-10-2023 Anion gap [Moles/Vol] 10.3 mmol/L 6.0-15.0 [facility] Sodium [Moles/volume] in Ser um or PlasmaOrdered By: Mia Arrieta on 06-10-2023 Sodium [Moles/Vol] 136 mmol/L 136-145 [facility] Specific gravity Auto test s trip (U) [Rel density]Ordered By: Mia Arrieta on 06-10-2023 Specific gravity (U) [Rel density] 1.018 1.001-1.030 [facility] Squamous epithelial cells de tection in urine sediment by light microscopyOrdered By: Mia Arrieta on 06-10-2023 Epithelial cells.squamous LM Ql (Urine sed) 0-1 [HPF] 0-2 [facility] Urea nitrogen [Mass/volume] in Serum or PlasmaOrdered By: Mia Arrieta on 06-10-2023 Urea nitrogen [Mass/Vol] 8 mg/dL 7-25 [facility] Urine bacteria detection by automated methodOrdered By: Mia Arrieta on 06-10-2023 Bacteria Auto Ql (U) None seen None Seen [facility] Urine clarity by refractomet ry automatedOrdered By: Mia Arrieta on 06-10-2023 Clarity Refractometry automated (U) Clear Clear [facility] Urine culture routineOrdered By: Mia Arrieta on 06-10-2023 Bacteria identified Cx Nom (U) 2 Days [facility] Urine glucose measurement by automated test strip (mass/volume)Ordered By: Mia Arrieta on 06-10-2023 Glucose Auto test strip (U) [Mass/Vol] Normal mg/dL Normal [facility] Urine hemoglobin detection b y automated test stripOrdered By: Mia Arrieta on 06-10-2023 Hemoglobin Auto test strip Ql (U) Negative Negative [facility] Urine leukocyte esterase det ection by automated test stripOrdered By: Mia Arrieta on 06-10-2023 Leukocyte esterase Auto test strip Ql (U) 3+ Negative [facility] Urobilinogen Auto test strip (U) [Mass/Vol]Ordered By: Mia Arrieta on 06-10-2023 Urobilinogen (U) [Mass/Vol] Normal mg/dL Normal [facility] WBC Auto (Bld) [#/Vol]Ordere d By: Mia Arrieta on 06-10-2023 WBC (Bld) [#/Vol] 13.7 10*3/uL 3.8-11.6 [facility] pH Auto test strip (U)Ordere d By: Mia Arrieta on 06-10-2023 pH (U) 8.0 [pH] 5.0-9.0 [facility] Automated erythrocytes count in urine sediment (number/area)Ordered By: Manny Brooke on 05-16-2023 RBC Auto (Urine sed) [#/Area] 0-1 [HPF] 0-4 [facility] Automated leukocytes count i n urine sediment (number/area)Ordered By: Manny Brooke on 05-16-2023 WBC Auto (Urine sed) [#/Area] 20-49 [HPF] 0-4 [facility] Basophils Auto (Bld) [#/Vol] Ordered By: Manny Brooke on 05-16-2023 Basophils (Bld) [#/Vol] 0.1 10*3/uL 0.0-0.2 [facility] Basophils/100 WBC Auto (Bld) Ordered By: Manny Brooke on 05-16-2023 Basophils/100 WBC (Bld) 0.8 % . [facility] Bilirubin Test strip Ql (U)O rdered By: Manny Brooke on 05-16-2023 Bilirubin Ql (U) Negative Negative [facility] Calcium [Mass/volume] in Ser um or PlasmaOrdered By: Manny Boroke on 05-16-2023 Calcium [Mass/Vol] 9.0 mg/dL 8.6-10.3 [facility] [place] Carbon dioxide, total [Moles /volume] in Serum or PlasmaOrdered By: Manny Brooke on 05-16-2023 CO2 [Moles/Vol] 22.9 mmol/L 21.0-31.0 [facility] Chloride [Moles/volume] in S katie or PlasmaOrdered By: Manny Brooke on 05-16-2023 Chloride [Moles/Vol] 105 mmol/L 98-107 [facility] Color Auto (U)Ordered By: Scott Brooke on 05-16-2023 Color (U) Yellow Yellow [facility] Creatinine [Mass/volume] in Serum or PlasmaOrdered By: Manny Brooke on 05-16-2023 Creatinine [Mass/Vol] 0.72 mg/dL 0.60-1.20 [facility] Eosinophils Auto (Bld) [#/Vo l]Ordered By: Manny Brooke on 05-16-2023 Eosinophils (Bld) [#/Vol] 0.2 10*3/uL 0.0-0.45 [facility] Eosinophils/100 WBC Auto (Bl d)Ordered By: Manny Brooke on 05-16-2023 Eosinophils/100 WBC (Bld) 1.2 % . [facility] Erythrocyte distribution wid th Auto (RBC) [Ratio]Ordered By: Manny Brooke on 05-16-2023 Erythrocyte distribution width (RBC) [Ratio] 15.3 % 11.9-15.3 [facility] Glucose [Mass/volume] in Ser um or PlasmaOrdered By: Manny Brooke on 05-16-2023 Glucose [Mass/Vol] 79 mg/dL 70-100 [facility] [place] Comment on above: ADA recommended refe rence rangeRandom Glucose Reference Range is dependent on time and content of last meal. Glucose of more than 200 mg/dL in a nonstressed, ambulatory subject supports the diagnosis of Diabetes Mellitus. HCG ( test) IAliz d Ql (U)Ordered By: Manny Brooke on 05-16-2023 HCG ( test) Ql (U) Negative [facility] Hematocrit Auto (Bld) [Volum e fraction]Ordered By: Manny Brooke on 05-16-2023 Hematocrit (Bld) [Volume fraction] 38.9 % 34.0-46.4 [facility] Hemoglobin [Mass/volume] in BloodOrdered By: Manny Brooke on 05-16-2023 Hemoglobin (Bld) [Mass/Vol] 12.7 g/dL 11.8-15.4 [facility] Ketones Auto test strip (U) [Mass/Vol]Ordered By: Manny Brooke on 05-16-2023 Ketones (U) [Mass/Vol] Negative Negative [facility] - UrinalysisOrder ed By: Manny Brooke on 05-16-2023 Hyaline casts LM Ql (Urine sed) 0-8 [LPF] 0-8 [facility] Leukocytes [#/volume] correc renetta for nucleated erythrocytes in Blood by Automated counOrdered By: Manny Brooke on 05-16-2023 WBC corrected for nucl RBC Auto (Bld) [#/Vol] 14.1 10*3/uL 3.8-11.6 [facility] Lymphocytes Auto (Bld) [#/Vo l]Ordered By: Manny Brooke on 05-16-2023 Lymphocytes (Bld) [#/Vol] 4.0 10*3/uL 1.00-4.8 [facility] Lymphocytes/100 WBC Auto (Bl d)Ordered By: Manny Brooke on 05-16-2023 Lymphocytes/100 WBC (Bld) 28.0 % . [facility] MCH Auto (RBC) [Entitic mass ]Ordered By: Manny Brooke on 05-16-2023 MCH (RBC) [Entitic mass] 26.2 pg 24.7-34.3 [facility] MCHC Auto (RBC) [Mass/Vol]Or dered By: Manny Brooke on 05-16-2023 MCHC (RBC) [Mass/Vol] 32.5 g/dL 32.0-35.0 [facility] MCV Auto (RBC) [Entitic vol] Ordered By: Manny Brooke on 05-16-2023 MCV (RBC) [Entitic vol] 80.6 fL 80-100 [facility] Monocyte distribution width [Entitic volume] in Blood by AutomatedOrdered By: Manny Brooke on 05-16-2023 Monocyte distribution width Auto (Bld) [Entitic vol] 18.09 % 0.00-20.00 [facility] Monocytes Auto (Bld) [#/Vol] Ordered By: Manny Brooke on 05-16-2023 Monocytes (Bld) [#/Vol] 0.9 10*3/uL 0.0-0.8 [facility] Monocytes/100 WBC Auto (Bld) Ordered By: Manny Brooke on 05-16-2023 Monocytes/100 WBC (Bld) 6.7 % . [facility] Neutrophils Auto (Bld) [#/Vo l]Ordered By: Manny Brooke on 05-16-2023 Neutrophils (Bld) [#/Vol] 8.9 10*3/uL 1.8-7.7 [facility] Neutrophils/100 WBC Auto (Bl d)Ordered By: Manny Brooke on 05-16-2023 Neutrophils/100 WBC (Bld) 63.3 % . [facility] Nitrite Test strip Ql (U)Ord ered By: Manny Brooke on 05-16-2023 Nitrite Ql (U) Negative Negative [facility] No Panel InformationOrdered By: Manny Brooke on 05-16-2023 Estimated GFR (CKD-EPI) > 60.0 mL/Min [facility] Creatinine Clearance (Chem 152.37 [facility] Nucleated erythrocytes [Pres ence] in Blood by Automated countOrdered By: Manny Brooke on 05-16-2023 Nucleated RBC Auto Ql (Bld) 0.2 /100{WBC} 0-0.5 [facility] Platelet mean volume Auto (B ld) [Entitic vol]Ordered By: Manny Brooke on 05-16-2023 Platelet mean volume (Bld) [Entitic vol] 8.6 fL 6.3-10.7 [facility] Platelets Auto (Bld) [#/Vol] Ordered By: Manny Brooke on 05-16-2023 Platelets (Bld) [#/Vol] 316 10*3/uL 150-450 [facility] Potassium [Moles/volume] in Serum or PlasmaOrdered By: Manny Brooke on 05-16-2023 Potassium [Moles/Vol] See comment 3.5-5.1 [facility] Comment on above: Specimen hemolyzed, redraw requestedResults calledat 0139 on 05/16/23 Protein Auto test strip (U) [Mass/Vol]Ordered By: Manny Brooke on 05-16-2023 Protein (U) [Mass/Vol] Negative Negative [facility] RBC Auto (Bld) [#/Vol]Ordere d By: Manny Brooke on 05-16-2023 RBC (Bld) [#/Vol] 4.83 10*6/uL 3.60-5.00 [facility] Serum or plasma anion gap de terminationOrdered By: Manny Brooke on 05-16-2023 Anion gap [Moles/Vol] TNP [facility] Comment on above: Test not performed Sodium [Moles/volume] in Ser um or PlasmaOrdered By: Manny Brooke on 05-16-2023 Sodium [Moles/Vol] 136 mmol/L 136-145 [facility] [place] Specific gravity Auto test s trip (U) [Rel density]Ordered By: Manny Brooke on 05-16-2023 Specific gravity (U) [Rel density] 1.024 1.001-1.030 [facility] Squamous epithelial cells de tection in urine sediment by light microscopyOrdered By: Manny Brooke on 05-16-2023 Epithelial cells.squamous LM Ql (Urine sed) 0-1 [HPF] 0-2 [facility] Urea nitrogen [Mass/volume] in Serum or PlasmaOrdered By: Manny Brooke on 05-16-2023 Urea nitrogen [Mass/Vol] 12 mg/dL 7-25 [facility] Urine bacteria detection by automated methodOrdered By: Manny Brooke on 05-16-2023 Bacteria Auto Ql (U) None seen None Seen [facility] Urine clarity by refractomet ry automatedOrdered By: Manny Brooke on 05-16-2023 Clarity Refractometry automated (U) Clear Clear [facility] Urine culture routineOrdered By: Manny rBooke on 05-16-2023 Bacteria identified Cx Nom (U) 2 Days [facility] Urine glucose measurement by automated test strip (mass/volume)Ordered By: Manny Brooke on 05-16-2023 Glucose Auto test strip (U) [Mass/Vol] Normal mg/dL Normal [facility] Urine hemoglobin detection b y automated test stripOrdered By: Manny Brooke on 05-16-2023 Hemoglobin Auto test strip Ql (U) Negative Negative [facility] Urine leukocyte esterase det ection by automated test stripOrdered By: Manny Brooke on 05-16-2023 Leukocyte esterase Auto test strip Ql (U) 2+ Negative [facility] Urobilinogen Auto test strip (U) [Mass/Vol]Ordered By: Manny Sparkszi on 05-16-2023 Urobilinogen (U) [Mass/Vol] Normal mg/dL Normal [facility] WBC Auto (Bld) [#/Vol]Ordere d By: Manny Sparkszi on 05-16-2023 WBC (Bld) [#/Vol] 14.1 10*3/uL 3.8-11.6 [facility] pH Auto test strip (U)Ordere d By: Mannyradha Sparkszi on 05-16-2023 pH (U) 5.5 [pH] 5.0-9.0 [facility] Consent for Treatmenton 12-03 Consent for Treatment [id number]:127 [facility] Discharge Instructionson Discharge Instructions [id number] .[id number]:127 [facility] ED Clinical Summaryon 2022 ED Clinical Summary [place] [id number] ED Clinical Summary Person Information Name: LIZZIE MULLER [facility] Age: 17 Years : 2005 Sex: Female Language: Palauan PCP: MIA JARA DO Marital Status: Single MRN: Visit Id: Visit Reason: Allergic reaction - minor; SWOLLEN LIPS, RASH, TROUBLE SWALLOWING Speciality: Acuity: 2 Enc Type: Emergency Med Service: Emergency Arrival: 12/29/2022 01:30:59 Discharge: 12/29/2022 03:41:11 LOS: 000 02:11 Checkin: 12/29/2022 01:30:59 Checkout: 12/29/2022 03:41:11 Dispo Type: Home (Routine DC) EVENTS: Event Name Event Status Request Date/Time Start Date/Time Complete Date/Time Arrive Complete 12/29/2022 01:30:59 12/29/2022 01:30:59 12/29/2022 01:30:59 Document Home Meds Request 12/29/2022 01:30:59 Triage Complete 12/29/2022 01:30:59 12/29/2022 01:50:52 12/29/2022 01:50:52 Registration Complete 12/29/2022 01:37:23 12/29/2022 01:37:23 12/29/2022 01:37:23 Reg Complete Request 12/29/2022 01:37:23 Reg Bed Request Complete 12/29/2022 01:37:23 12/29/2022 01:37:23 12/29/2022 01:37:23 Bed Assign Complete 12/29/2022 01:51:01 12/29/2022 01:51:01 12/29/2022 01:51:01 Dr Exam Complete 12/29/2022 01:51:01 12/29/2022 01:58:31 12/29/2022 01:58:31 RN Exam Complete 12/29/2022 01:51:01 12/29/2022 02:20:09 12/29/2022 02:20:09 Registration Request 12/29/2022 01:58:31 Meds Admin Complete 12/29/2022 02:26:38 12/29/2022 02:38:19 Discharge Complete 12/29/2022 03:33:45 12/29/2022 03:41:21 12/29/2022 03:41:21 Transfer Complete 12/29/2022 03:41:21 12/29/2022 03:41:21 12/29/2022 03:41:21 ADDRESS: [address] [place] [id number] [facility] DOC NOTES: MEDICAL INFORMATION: Prescriptions Given: Medications to Continue with No Changes Other Medications lamotrigine (lamotrigine 200 mg Tab) 1 Tablets By Mouth every day. Refills: 1. lithium (lithium 450 mg oral tablet, extended release) 1 daily am and 2 daily supper. Refills: 3. quetiapine (SEROquel 50 mg Tab) 2 Tablets By Mouth at bedtime. Refills: 1. PATIENT EDUCATION INFORMATION: Instructions: Allergies, Adult Follow up: With: Address: When: [address] [place] [address] Business (1) In 3 days DIAGNOSIS: Allergic reaction [facility] ED Note-Physicianon 12-30-19 ED Note-Physician Basic Information Time Seen: Tenzin Roberts DO 12/29/2022 01:58 Chief Complaint complains of sore throat earlier today. tonight bottom lip became swollen. feels like her throat is tight. History of Present Illness HPI: Patient is a 88-year-old female who presents the ED for possible allergic reaction. Patient states that tonight she started having some feeling of a scratchy irritated throat. She then started having some skin itching and a slight rash along her upper chest and now feels like her lip is swelling. She has never had anything like this in the past. She states that she did try a new kind of balsamic dressing with a salad packet that is the only new exposures having think of. She denies any other allergies that she is aware of. She took Benadryl and Pepcid prior to arrival. ROS: Pertinent review of systems conducted and is negative except as noted above. Physical exam: General: nontoxic appearing and in no distress HEENT: Mucous membranes moist. Steer pharynx is patent. No tongue or throat swelling. She does have some trace swelling of her lower lip. Neuro: awake and alert Neck: supple, trachea midline Card: Heart regular rate and rhythm no murmur Resp: Lungs clear to auscultation no wheeze or rhonchi Abd: Soft and nondistended. No tenderness to palpation with no rebound or guarding. Ext: No gross deformity or edema Physical Exam Vitals & Measurements T: 36.5 ?C(Oral) HR: 93(Monitored) RR: 14 BP: 118/78 SpO2: 100% HT: 158 cm WT: 112.9 kg BMI: 45.23 Medical Decision Making MEDICAL DECISION MAKING Number and Complexity of Problems Differential Diagnosis: [] [facility] Data External documents reviewed: N/A My EKG interpretation: Noted in chart if applicable My CT interpretation: N/A My X-ray interpretation: Noted in chart if applicable My Ultrasound interpretation: N/A Decision rules/scores evaluated: N/A Discussed with: N/A Treatment and Disposition ED Course: Patient is well-appearing in no distress. Her airway is patent. She is already taking Pepcid and Benadryl tonight. We will give her a lower dose of oral Decadron. Patient was watched in the ED for around 2 hours. At that time she was reexamined she states that she is feeling better all of her symptoms are improving. At this time I feel she is stable for discharge. She will try to keep track of any exposures over the next days. She will follow-up closely with a primary care physician. Shared decision making: As above Code status: N/A Assessment/Plan Allergic reaction (T78.40XA: Allergy, unspecified, initial encounter) Orders: dexamethasone, 10 mg = 2.5 mL, Injection, Oral, Once, Stop date 12/29/22 2:26:00 EDT, STAT, Start date 12/29/22 2:26:00 EDT, 12/29/22 2:26:00 EDT Medications Administered Given dexamethasone 4 mg/mL Inj 1 mL, 10 mg, Oral Disposition Plan Discharge Prescription List Prescriptions No active prescription medications Follow-up With When Contact Information MIA JARA In [address] [place], [place] [id number] (1) Additional Instructions: Patient Education Allergies, Adult Problem List/Past Medical History Ongoing Bipolar I disorder, most recent episode depressed, moderate Weight gain Historical No qualifying data Procedure/Surgical History none. Medications Inpatient dexamethasone 4 mg/mL Inj 1 mL, 10 mg= 2.5 mL, Oral, Once Home lamotrigine 200 mg Tab, 200 mg= 1 tab(s), Oral, Daily, 1 refills lithium 450 mg oral tablet, extended release, See Instructions, 3 refills SEROquel 50 mg Tab, 100 mg= 2 tab(s), Oral, Bedtime, 1 refills Allergies No Known Allergies Social History Alcohol - Denies Alcohol Use, 01/06/2019 Employment/School Student, Previous employment/school: 11th grade at [employer] ., 04/27/2019 Home/Environment Lives with Father, Mother, Siblings. Living situation: Home/Independent., 02/11/2019 Substance Abuse - Denies Substance Abuse, 01/06/2019 Tobacco - Denies Tobacco Use, 02/11/2019 Never (less than 100 in lifetime) Tobacco Use:. Never Smokeless Tobacco Use:. Household tobacco concerns: Yes., 08/22/2020 Family History Bipolar 1 disorder: Mother and Sister. Lab Results No qualifying data available. Diagnostic Results No qualifying data available. [facility] Comment on above: Result Comment: Daniel trodeoally Signed By: Tenzin Roberts DO\.br\Date and Time Signed: 12/29/22 03:34 EDT ED Patient Education Noteon 12-29-2022 ED Patient Education Note Immunology Allergies, Adult An allergy is a condition in which the body's defense system (immune system) comes in contact with an allergen and reacts to it. An allergen is anything that causes an allergic reaction. Allergens cause the immune system to make proteins for fighting infections (antibodies). These antibodies cause cells to release chemicals called histamines that set off the symptoms of an allergic reaction. Allergies often affect the nasal passages (allergic rhinitis), eyes (allergic conjunctivitis), skin (atopic dermatitis), and stomach. Allergies can be mild, moderate, or severe. They cannot spread from person to person. Allergies can develop at any age and may be outgrown. What are the causes? This condition is caused by allergens. Common allergens include: ? Outdoor allergens, such as pollen, car fumes, and mold. ? Indoor allergens, such as dust, smoke, mold, and pet dander. ? Other allergens, such as foods, medicines, scents, insect bites or stings, and other skin irritants. What increases the risk? You are more likely to develop this condition if you have: ? Family members with allergies. ? Family members who have any condition that may be caused by allergens, such as asthma. This may make you more likely to have other allergies. What are the signs or symptoms? Symptoms of this condition depend on the severity of the allergy. Mild to moderate symptoms ? Runny nose, stuffy nose (nasal congestion), or sneezing. ? Itchy mouth, ears, or throat. ? A feeling of mucus dripping down the back of your throat (postnasal drip). ? Sore throat. ? Itchy, red, watery, or puffy eyes. ? Skin rash, or itchy, red, swollen areas of skin (hives). ? Stomach cramps or bloating. Severe symptoms Severe allergies to food, medicine, or insect bites may cause anaphylaxis, which can be life-threatening. Symptoms include: ? A red (flushed) face. ? Wheezing or coughing. ? Swollen lips, tongue, or mouth. ? Tight or swollen throat. ? Chest pain or tightness, or rapid heartbeat. ? Trouble breathing or shortness of breath. ? Pain in the abdomen, vomiting, or diarrhea. ? Dizziness or fainting. How is this diagnosed? This condition is diagnosed based on your symptoms, your family and medical history, and a physical exam. You may also have tests, including: ? Skin tests to see how your skin reacts to allergens that may be causing your symptoms. Tests include: ? Skin prick test. For this test, an allergen is introduced to your body through a small opening in the skin. ? Intradermal skin test. For this test, a small amount of allergen is injected under the first layer of your skin. ? Patch test. For this test, a small amount of allergen is placed on your skin. The area is covered and then checked after a few days. ? Blood tests. ? A challenge test. For this test, you will eat or breathe in a small amount of allergen to see if you have an allergic reaction. You may also be asked to: ? Keep a food diary. This is a record of all the foods, drinks, and symptoms you have in a day. ? Try an elimination diet. To do this: ? Remove certain foods from your diet. ? Add those foods back one by one to find out if any foods cause an allergic reaction. How is this treated? Treatment for allergies depends on your symptoms. Treatment may include: ? Cold, wet cloths (cold compresses) to soothe itching and swelling. ? Eye drops or nasal sprays. ? Nasal irrigation to help clear your mucus or keep the nasal passages moist. ? A humidifier to add moisture to the air. ? Skin creams to treat rashes or itching. ? Oral antihistamines or other medicines to block the reaction or to treat inflammation. ? Diet changes to remove foods that cause allergies. ? Being exposed again and again to tiny amounts of allergens to help you build a defense against it (tolerance). This is called immunotherapy. Examples include: ? Allergy shot. You receive an injection that contains an allergen. ? Sublingual immunotherapy. You take a small dose of allergen under your tongue. ? Emergency injection for anaphylaxis. You give yourself a shot using a syringe (auto-injector) that contains the amount of medicine you need. Your health care provider will teach you how to give yourself an injection. Follow these instructions at home: Medicines ? Take or apply pirc-fef-htrewyg and prescription medicines only as told by your health care provider. ? Always carry your auto-injector pen if you are at risk of anaphylaxis. Give yourself an injection as told by your health care provider. Eating and drinking ? Follow instructions from your health care provider about eating or drinking restrictions. ? Drink enough fluid to keep your urine pale yellow. General instructions ? Wear a medical alert bracelet or necklace to let others know that you have had (more content not included)... [facility] ED Patient Summaryon 023 ED Patient Summary [address] [address] Patient Discharge Instructions Person Information Name: LIZZIE MULLER Age: 17 Years Arrival Date: 12/29/2022 01:30:59 Discharge Diagnosis: Allergic reaction Primary Care Physician: MIA JARA DO Provider Information Primary Provider: Tenzin Roberts DO Advanced Cross Cut Saw Operator:Finn The exam and treatment you received in the Emergency Department were for an urgent problem and are not intended as complete care. It is important that you follow up with a doctor, nurse practitioner, or physician?s residential living assistant for ongoing care. If your symptoms become worse or you do not improve as expected and you are unable to reach your usual health care provider, you should return to the Emergency Department. We are available 24 hours a day. LIZZIE MULLER has been given the following list of patient education materials, prescriptions and follow-up instructions: Follow-up Instructions: With: Address: Dean: MIA JARA [address] [place] [id number] Business (1) In 3 days In the event that this physician does not participate in your insurance network, please consult with your insurance company to find a nearby participating provider. Patient Education Materials: Allergies, Adult A MESSAGE TO ALL PATIENTS REGARDING OPIOIDS PRESCRIPTION OPIOIDS: WHAT YOU NEED TO KNOW Prescription opioids can be used to help relieve cyixhztt-fw-pqlmng pain and are often prescribed following a surgery or injury, or for certain health conditions. These medications can be an important part of the treatment but also come with serious risks. It is important to work with your healthcare provider to make sure you are getting the safest, most effective care. WHAT ARE THE RISKS AND SIDE EFFECTS OF OPIOID USE? Prescription opioids carry serious risks of addiction and overdose, especially with prolonged use. An opioid overdose, often marked by slowed breathing, can cause sudden . The use of prescription opioids can have a number of side effects as well, even when taken as directed: ? Tolerance?meaning you might need to take more of the medication for the same pain relief ? Physical dependence?meaning you have symptoms of withdrawal when a medication is stopped ? Increased sensitivity to pain ? Constipation ? Nausea, vomiting, and dry mouth ? Sleepiness and dizziness ? Confusion ? Depression ? Low levels of testosterone that can result in lower sex drive, energy, and strength ? Itching and sweating RISKS ARE GREATER WITH: ? History of drug misuse, substance use disorder, or overdose ? Mental health conditions (such as depression or anxiety) ? Sleep apnea ? Older age (65 years and older) ? Avoid alcohol while taking prescription opioids. Also, unless specifically advised by your health care provider, medications to avoid include: ? Benzodiazepines (such as Xanax or Valium) ? Muscle relaxants (such as Soma or Flexeril) ? Hypnotics (such as Ambien or Lunesta) ? Other prescription opioids KNOW YOUR OPTIONS Talk to your health care provider about ways to manage your pain that don?t involve prescription opioids. Some of these options may actually work better and have fewer risks and side effects. Options may include: ? Pain relievers such as acetaminophen, ibuprofen, and naproxen ? Some medication that are also used for depression or seizures ? Physical therapy and exercise ? Cognitive behavioral therapy, a psychological, goal-directed approach, in which patients learn how to modify physical, behavioral, and emotional triggers of pain and stress. IF YOU ARE PRESCRIBED OPIOIDS FOR PAIN: ? Never take opioids in greater amounts or more often than prescribed. ? Follow up with your primary health care provider. o Work together to create a plan on how to manage your pain. o Talk about ways to help manage your pain that don?t involve prescription opioids. o Talk about any and all concerns and side effects. ? Help prevent misuse and abuse o Never sell or share prescription opioids. o Never use another person?s prescription opioids. ? Store prescription opioids in a secure place and out of reach of others (this may include visitors, children, friends, and family). ? Safely dispose of unused prescription opioids: Find your community drug take-back program or your pharmacy mail-back program, or flush them down the toilet, following guidance from the Food and Drug Administration (www.fda.gov/Drugs/Re sourcesForYou). ? Visit www.cdc.gov/drugoverd ose to learn about the risks of opioids abuse and overdose. ? If you believe you may be struggling with addiction, tell your health social worker palliative care and ask for guidance or call [facility]?S National Helpline at 2-818-145-ZZBF. w Source: [place] Department of Health and Human Serv (more content not included)... Normal [facility] Alanine aminotransferase [En zymatic activity/volume] in Serum or PlasmaOrdered By: Ashley Morales on 12-16-2022 ALT [Catalytic activity/Vol] 14 U/L 7-52 [facility] Albumin [Mass/volume] in Ser um or Plasma by Bromocresol green (BCG) dye binding methoOrdered By: Ashley Morales on 12-16-2022 Albumin BCG dye [Mass/Vol] 4.0 g/dL 3.5-5.7 [facility] Alkaline phosphatase [Enzyma tic activity/volume] in Serum or PlasmaOrdered By: Ashley Morales on 12-16-2022 ALP [Catalytic activity/Vol] 131 U/L 34-104 [facility] Amphetamine Screen Ql (U)Ord ered By: Ashley Morales on 12-16-2022 Amphetamines Ql (U) Negative Negative [facility] Aspartate aminotransferase [ Enzymatic activity/volume] in Serum or PlasmaOrdered By: Ashley Morales on 12-16-2022 AST [Catalytic activity/Vol] 13 U/L 13-39 [facility] Automated erythrocytes count in urine sediment (number/area)Ordered By: Ashley Morales on 12-16-2022 RBC Auto (Urine sed) [#/Area] None seen [HPF] 0-4 [facility] Automated leukocytes count i n urine sediment (number/area)Ordered By: Ashley Morales on 12-16-2022 WBC Auto (Urine sed) [#/Area] 0-1 [HPF] 0-4 [facility] Barbiturates [Presence] in U rine by Screen methodOrdered By: Ashley Morales on 12-16-2022 Barbiturates Screen Ql (U) Negative Negative [facility] Basophils Auto (Bld) [#/Vol] Ordered By: Ashley Morales on 12-16-2022 Basophils (Bld) [#/Vol] 0.1 10*3/uL 0.0-0.2 [facility] Basophils/100 WBC Auto (Bld) Ordered By: Ashley Morales on 12-16-2022 Basophils/100 WBC (Bld) 0.7 % . [facility] Benzodiazepines Screen Ql (U )Ordered By: Ashley Morales on 12-16-2022 Benzodiazepines Ql (U) Negative Negative [facility] Benzoylecgonine [Presence] i n Urine by Screen methodOrdered By: Ashley Morales on 12-16-2022 Benzoylecgonine Screen Ql (U) Negative Negative [facility] Bilirubin Test strip Ql (U)O rdered By: Ashley Morales on 12-16-2022 Bilirubin Ql (U) Negative Negative [facility] Bilirubin.total [Mass/volume ] in Serum or PlasmaOrdered By: Ashley Morales on 12-16-2022 Bilirubin [Mass/Vol] 0.2 mg/dL 0.3-1.0 [facility] Calcium [Mass/volume] in Ser um or PlasmaOrdered By: Ashley Morales on 12-16-2022 Calcium [Mass/Vol] 8.9 mg/dL 8.6-10.3 [facility] Cannabinoids [Presence] in U rine by Screen methodOrdered By: Ashley Morales on 12-16-2022 Cannabinoids Screen Ql (U) Negative Negative [facility] Comment on above: These are unconfirme d results and should not be used for legal purposes. Drug Cut-Off Concentration: AMPH 1000 ng/mL SUSANA 200 ng/mL JOSHUA 200 ng/mL COCM 300 ng/mL OP 300 ng/mL PCP 25 ng/mL THC 20 ng/mL Carbon dioxide, total [Moles /volume] in Serum or PlasmaOrdered By: Ashley Morales on 12-16-2022 CO2 [Moles/Vol] 24.5 mmol/L 21.0-31.0 [facility] Chloride [Moles/volume] in S katie or PlasmaOrdered By: Ashley Morales on 12-16-2022 Chloride [Moles/Vol] 106 mmol/L 98-107 [facility] Color Auto (U)Ordered By: Me damon Morales on 12-16-2022 Color (U) Yellow Yellow [facility] Creatinine [Mass/volume] in Serum or PlasmaOrdered By: Ashley Morales on 12-16-2022 Creatinine [Mass/Vol] 0.74 mg/dL 0.60-1.20 [facility] Eosinophils Auto (Bld) [#/Vo l]Ordered By: Ashley Morales on 12-16-2022 Eosinophils (Bld) [#/Vol] 0.1 10*3/uL 0.0-0.45 [facility] Eosinophils/100 WBC Auto (Bl d)Ordered By: Ashley Morales on 12-16-2022 Eosinophils/100 WBC (Bld) 1.6 % . [facility] Erythrocyte distribution wid th Auto (RBC) [Ratio]Ordered By: Ashley Morales on 12-16-2022 Erythrocyte distribution width (RBC) [Ratio] 13.9 % 11.9-15.3 [facility] Ethanol [Mass/volume] in Ser um or PlasmaOrdered By: Ashley Morales on 12-16-2022 Ethanol [Mass/Vol] mg/dL [facility] Ethanol [Mass/Vol] TNP [facility] Comment on above: Test not performed Globulin Calc (S) [Mass/Vol] Ordered By: Ashley Morales on 12-16-2022 Globulin (S) [Mass/Vol] 3.3 g/dL [facility] Glucose [Mass/volume] in Ser um or PlasmaOrdered By: Ashley Morales on 12-16-2022 Glucose [Mass/Vol] 93 mg/dL 70-100 [facility] Comment on above: ADA recommended refe rence rangeRandom Glucose Reference Range is dependent on time and content of last meal. Glucose of more than 200 mg/dL in a nonstressed, ambulatory subject supports the diagnosis of Diabetes Mellitus. HCG ( test) IA.rapi d Ql (U)Ordered By: Ashley Morales on 12-16-2022 HCG ( test) Ql (U) Negative [facility] Hematocrit Auto (Bld) [Volum e fraction]Ordered By: Ashley Morales on 12-16-2022 Hematocrit (Bld) [Volume fraction] 39.6 % 34.0-46.4 [facility] Hemoglobin [Mass/volume] in BloodOrdered By: Ashley Morales on 12-16-2022 Hemoglobin (Bld) [Mass/Vol] 13.2 g/dL 11.8-15.4 [facility] Ketones Auto test strip (U) [Mass/Vol]Ordered By: Ashley Morales on 12-16-2022 Ketones (U) [Mass/Vol] Negative Negative [facility] - UrinalysisOrder ed By: Ashley Morales on 12-16-2022 Hyaline casts LM Ql (Urine sed) 0-8 [LPF] 0-8 [facility] Leukocytes [#/volume] correc renetta for nucleated erythrocytes in Blood by Automated counOrdered By: Ashley Morales on 12-16-2022 WBC corrected for nucl RBC Auto (Bld) [#/Vol] 9.2 10*3/uL 3.8-11.6 [facility] Lymphocytes Auto (Bld) [#/Vo l]Ordered By: Ashley Morales on 12-16-2022 Lymphocytes (Bld) [#/Vol] 2.3 10*3/uL 1.00-4.8 [facility] Lymphocytes/100 WBC Auto (Bl d)Ordered By: Ashley Morales on 12-16-2022 Lymphocytes/100 WBC (Bld) 25.5 % . [facility] MCH Auto (RBC) [Entitic mass ]Ordered By: Ashley Morales on 12-16-2022 MCH (RBC) [Entitic mass] 27.3 pg 24.7-34.3 [facility] MCHC Auto (RBC) [Mass/Vol]Or dered By: Ashley Morales on 12-16-2022 MCHC (RBC) [Mass/Vol] 33.3 g/dL 32.0-35.0 [facility] MCV Auto (RBC) [Entitic vol] Ordered By: Ashley Morales on 12-16-2022 MCV (RBC) [Entitic vol] 81.8 fL 80-100 [facility] Monocyte distribution width [Entitic volume] in Blood by AutomatedOrdered By: Ashley Morales on 12-16-2022 Monocyte distribution width Auto (Bld) [Entitic vol] 19.79 % 0.00-20.00 [facility] Monocytes Auto (Bld) [#/Vol] Ordered By: Ashley Morales on 12-16-2022 Monocytes (Bld) [#/Vol] 0.7 10*3/uL 0.0-0.8 [facility] Monocytes/100 WBC Auto (Bld) Ordered By: Ashley Morales on 12-16-2022 Monocytes/100 WBC (Bld) 7.6 % . [facility] Neutrophils Auto (Bld) [#/Vo l]Ordered By: Ashley Morales on 12-16-2022 Neutrophils (Bld) [#/Vol] 5.9 10*3/uL 1.8-7.7 [facility] Neutrophils/100 WBC Auto (Bl d)Ordered By: Ashley Morales on 12-16-2022 Neutrophils/100 WBC (Bld) 64.6 % . [facility] Nitrite Test strip Ql (U)Ord ered By: Ashley Morales on 12-16-2022 Nitrite Ql (U) Negative Negative [facility] No Panel InformationOrdered By: Ashley Morales on 12-16-2022 Estimated GFR (CKD-EPI) > 60.0 mL/Min [facility] Creatinine Clearance (Chem 143.50 [facility] Nucleated erythrocytes [Pres ence] in Blood by Automated countOrdered By: Ashley Morales on 12-16-2022 Nucleated RBC Auto Ql (Bld) 0.2 /100{WBC} 0-0.5 [facility] Opiates [Presence] in Urine by Screen methodOrdered By: Ashley Morales on 12-16-2022 Opiates Screen Ql (U) Negative Negative [facility] Phencyclidine Screen Ql (U)O rdered By: Ashley Morales on 12-16-2022 Phencyclidine Ql (U) Negative Negative [facility] Platelet mean volume Auto (B ld) [Entitic vol]Ordered By: Ashley Morales on 12-16-2022 Platelet mean volume (Bld) [Entitic vol] 8.5 fL 6.3-10.7 [facility] Platelets Auto (Bld) [#/Vol] Ordered By: Ashley Morales on 12-16-2022 Platelets (Bld) [#/Vol] 307 10*3/uL 150-450 [facility] Potassium [Moles/volume] in Serum or PlasmaOrdered By: Ashley Morales on 12-16-2022 Potassium [Moles/Vol] 3.9 mmol/L 3.5-5.1 [facility] Protein Auto test strip (U) [Mass/Vol]Ordered By: Ashley Morales on 12-16-2022 Protein (U) [Mass/Vol] Negative Negative [facility] Protein [Mass/volume] in Ser um or PlasmaOrdered By: Ashley Morales on 12-16-2022 Protein [Mass/Vol] 7.3 g/dL 6.4-8.9 [facility] RBC Auto (Bld) [#/Vol]Ordere d By: Ashley Morales on 12-16-2022 RBC (Bld) [#/Vol] 4.84 10*6/uL 3.60-5.00 [facility] Serum or plasma albumin/glob ulin mass ratioOrdered By: Ashley Morales on 12-16-2022 Albumin/Globulin [Mass ratio] 1.2 {ratio} [facility] Serum or plasma anion gap de terminationOrdered By: Ashley Morales on 12-16-2022 Anion gap [Moles/Vol] 10.4 mmol/L 6.0-15.0 [facility] Sodium [Moles/volume] in Ser um or PlasmaOrdered By: Ashley Morales on 12-16-2022 Sodium [Moles/Vol] 137 mmol/L 136-145 [facility] Specific gravity Auto test s trip (U) [Rel density]Ordered By: Ashley Morales on 12-16-2022 Specific gravity (U) [Rel density] 1.021 1.001-1.030 [facility] Squamous epithelial cells de tection in urine sediment by light microscopyOrdered By: Ashley Morales on 12-16-2022 Epithelial cells.squamous LM Ql (Urine sed) 1-2 [HPF] 0-2 [facility] Urea nitrogen [Mass/volume] in Serum or PlasmaOrdered By: Ashley Morales on 12-16-2022 Urea nitrogen [Mass/Vol] 9 mg/dL 7-25 [facility] Urine bacteria detection by automated methodOrdered By: Ashley Morales on 12-16-2022 Bacteria Auto Ql (U) None seen None Seen [facility] Urine clarity by refractomet ry automatedOrdered By: Ashley Morales on 12-16-2022 Clarity Refractometry automated (U) Cloudy Clear [facility] Urine glucose measurement by automated test strip (mass/volume)Ordered By: Ashley Morales on 12-16-2022 Glucose Auto test strip (U) [Mass/Vol] Normal mg/dL Normal [facility] Urine hemoglobin detection b y automated test stripOrdered By: Ashley Morales on 12-16-2022 Hemoglobin Auto test strip Ql (U) Negative Negative [facility] Urine leukocyte esterase det ection by automated test stripOrdered By: Ashley Morales on 12-16-2022 Leukocyte esterase Auto test strip Ql (U) 1+ Negative [facility] Urobilinogen Auto test strip (U) [Mass/Vol]Ordered By: Ashley Morales on 12-16-2022 Urobilinogen (U) [Mass/Vol] Normal mg/dL Normal [facility] WBC Auto (Bld) [#/Vol]Ordere d By: Ashley Morales on 12-16-2022 WBC (Bld) [#/Vol] 9.2 10*3/uL 3.8-11.6 [facility] pH Auto test strip (U)Ordere d By: Ashley Morales on 12-16-2022 pH (U) 7.0 [pH] 5.0-9.0 [facility] Albumin [Mass/volume] in Ser um or PlasmaOrdered By: Mia Arrieta on 02-02-2022 Albumin [Mass/Vol] 3.6 g/dL 3.2-5.5 [facility] Basophils Auto (Bld) [#/Vol] Ordered By: Mia Arrieta on 02-02-2022 Basophils (Bld) [#/Vol] 0.1 10*3/uL 0.0-0.1 [facility] Basophils/100 WBC Auto (Bld) Ordered By: Mia Arrieta on 02-02-2022 Basophils/100 WBC (Bld) 1.1 % [facility] Bilirubin Test strip Ql (U)O rdered By: Mia Arrieta on 02-02-2022 Bilirubin Ql (U) Negative Negative [facility] Blood hemoglobin measurement (mass/volume)Ordered By: Mia Arrieta on 02-02-2022 Hemoglobin (Bld) [Mass/Vol] 13.3 g/dL 12.0-16.0 [facility] Blood leukocytes automated c ount (number/volume)Ordered By: Mia Arrieta on 02-02-2022 WBC (Bld) [#/Vol] 8.6 10*3/uL 4.5-13.5 [facility] Color Auto (U)Ordered By: Clayton Arrieta on 02-02-2022 Color (U) Yellow Yellow [facility] Creatinine and Glomerular fi ltration rate.predicted panel (S/P/Bld)Ordered By: Mia Arrieta on 02-02-2022 Creatinine [Mass/Vol] 0.61 mg/dL 0.44-1.03 [facility] Direct bilirubin measurement Ordered By: Mia Arrieta on 02-02-2022 Bilirubin.direct [Mass/Vol] mg/dL 0.0-0.4 [facility] Eosinophils Auto (Bld) [#/Vo l]Ordered By: Mia Arrieta on 02-02-2022 Eosinophils (Bld) [#/Vol] 0.2 10*3/uL 0.0-0.7 [facility] Eosinophils/100 WBC Auto (Bl d)Ordered By: Mia Arrieta on 02-02-2022 Eosinophils/100 WBC (Bld) 2.2 % [facility] Erythrocyte distribution wid th Auto (RBC) [Ratio]Ordered By: Mia Arrieta on 02-02-2022 Erythrocyte distribution width (RBC) [Ratio] 13.4 % 11.9-15.3 [facility] Estimated glomerular filtrat ion rate (GFR) non- AmericanOrdered By: Mia Arrieta on 02-02-2022 GFR/1.73 sq M.predicted among non-blacks MDRD (S/P/Bld) [Vol rate/Area] > 60 mL/Min [facility] Globulin Calc (S) [Mass/Vol] Ordered By: Mia Arrieta on 02-02-2022 Globulin (S) [Mass/Vol] 3.1 g/dL [facility] HCG ( test) IA.rapi d Ql (U)Ordered By: Mia Arrieta on 02-02-2022 HCG ( test) Ql (U) Negative [facility] Hematocrit Auto (Bld) [Volum e fraction]Ordered By: Mia Arrieta on 02-02-2022 Hematocrit (Bld) [Volume fraction] 39.9 % 36.0-46.0 [facility] Ketones Auto test strip (U) [Mass/Vol]Ordered By: Mia Arrieta on 02-02-2022 Ketones (U) [Mass/Vol] Negative Negative [facility] - Chemistry and C hemistry - challengeOrdered By: Mia Arrieta on 02-02-2022 Lipase [Catalytic activity/Vol] 23.0 U/L 22-51 [facility] - Hematology and Cell countsOrdered By: Mia Arrieta on 02-02-2022 Nucleated RBC/100 WBC (Bld) [Ratio] 0.1 % 0-0.5 [facility] Lymphocytes Auto (Bld) [#/Vo l]Ordered By: Mia Arrieta on 02-02-2022 Lymphocytes (Bld) [#/Vol] 2.8 10*3/uL 1.20-4.8 [facility] Lymphocytes/100 WBC Auto (Bl d)Ordered By: Mia Arrieta on 02-02-2022 Lymphocytes/100 WBC (Bld) 32.2 % [facility] MCH Auto (RBC) [Entitic mass ]Ordered By: Mia Arrieta on 02-02-2022 MCH (RBC) [Entitic mass] 28.2 pg 25.0-35.0 [facility] MCHC Auto (RBC) [Mass/Vol]Or dered By: Mia Arrieta on 02-02-2022 MCHC (RBC) [Mass/Vol] 33.4 g/dL 31.0-37.0 [facility] MCV Auto (RBC) [Entitic vol] Ordered By: Mia Arrieta on 02-02-2022 MCV (RBC) [Entitic vol] 84.5 fL 78-102 [facility] Monocytes Auto (Bld) [#/Vol] Ordered By: Mia Arrieta on 02-02-2022 Monocytes (Bld) [#/Vol] 0.4 10*3/uL 0.1-1.00 [facility] Monocytes/100 WBC Auto (Bld) Ordered By: Mia Arrieta on 02-02-2022 Monocytes/100 WBC (Bld) 4.9 % [facility] Neutrophils Auto (Bld) [#/Vo l]Ordered By: Mia Arrieta on 02-02-2022 Neutrophils (Bld) [#/Vol] 5.1 10*3/uL 1.2-7.7 [facility] Neutrophils/100 WBC Auto (Bl d)Ordered By: Mia Arrieta on 02-02-2022 Neutrophils/100 WBC (Bld) 59.6 % [facility] Nitrite Test strip Ql (U)Ord ered By: Mia Arrieta on 02-02-2022 Nitrite Ql (U) Negative Negative [facility] No Panel InformationOrdered By: Mia Arrieta on 02-02-2022 Estimated GFR () > 60 mL/Min [facility] Comment on above: GFR estimated refere nce range: According to KDOQI guidelines, <60 ml/min/1.73m2 is sufficient to diagnose a patient with chronic kidney disease. Pharmacy Creatinine Clearance (Chem 168.16 [facility] Platelet mean volume Auto (B ld) [Entitic vol]Ordered By: Mia Arrieta on 02-02-2022 Platelet mean volume (Bld) [Entitic vol] 8.8 fL 6.3-10.7 [facility] Platelets Auto (Bld) [#/Vol] Ordered By: Mia Arrieta on 02-02-2022 Platelets (Bld) [#/Vol] 293 10*3/uL 150-450 [facility] Protein Auto test strip (U) [Mass/Vol]Ordered By: Mia Arrieta on 02-02-2022 Protein (U) [Mass/Vol] Negative Negative [facility] Protein [Mass/volume] in Ser um or PlasmaOrdered By: Mia Arrieta on 02-02-2022 Protein [Mass/Vol] 6.7 g/dL 6.1-7.9 [facility] RBC Auto (Bld) [#/Vol]Ordere d By: Mia Arrieta on 02-02-2022 RBC (Bld) [#/Vol] 4.73 10*6/uL 4.10-5.10 [facility] Serum or plasma alanine yu otransferase measurement without P-5'-P (enzymatic activiOrdered By: Mia Arrieta on 02-02-2022 ALT No additional P-5'-P [Catalytic activity/Vol] 18 U/L 10-60 [facility] Serum or plasma albumin/glob ulin mass ratioOrdered By: Mia Arrieta on 02-02-2022 Albumin/Globulin [Mass ratio] 1.2 {ratio} [facility] Serum or plasma alkaline lv sphatase measurement (enzymatic activity/volume)Ordered By: Mia Arrieta on 02-02-2022 ALP [Catalytic activity/Vol] 99 U/L 32-92 [facility] Serum or plasma aspartate am inotransferase measurement (enzymatic activity/volume)Ordered By: Mia Arrieta on 02-02-2022 AST [Catalytic activity/Vol] 17 U/L 10-42 [facility] Serum or plasma calcium mario urement (mass/volume)Ordered By: Mia Arrieta on 02-02-2022 Calcium [Mass/Vol] 9.1 mg/dL 8.2-10.2 [facility] Serum or plasma chloride tanya surement (moles/volume)Ordered By: Mia Arrieta on 02-02-2022 Chloride [Moles/Vol] 104 mmol/L 95-114 [facility] Serum or plasma glucose mario urement (mass/volume)Ordered By: Mia Arrieta on 02-02-2022 Glucose [Mass/Vol] 77 mg/dL 70-100 [facility] Comment on above: ADA recommended refe rence range Random Glucose Reference Range is dependent on time and content of last meal. Glucose of more than 200 mg/dL in a nonstressed, ambulatory subject supports the diagnosis of Diabetes Mellitus. Serum or plasma non-glucuron idated bilirubin measurement (mass/volume)Ordered By: Mia Arrieta on 02-02-2022 Bilirubin.indirect [Mass/Vol] TNP [facility] Comment on above: Test not performed Serum or plasma potassium me asurement (moles/volume)Ordered By: Mia Arrieta on 02-02-2022 Potassium [Moles/Vol] 4.2 mmol/L 3.5-5.1 [facility] Serum or plasma sodium measu rement (moles/volume)Ordered By: Mia Arrieta on 02-02-2022 Sodium [Moles/Vol] 137 mmol/L 136-146 [facility] Serum or plasma total biliru bin measurement (mass/volume)Ordered By: Mia Arrieta on 02-02-2022 Bilirubin [Mass/Vol] 0.4 mg/dL 0.3-1.2 [facility] Serum or plasma total carbon dioxide measurement (moles/volume)Ordered By: Mia Arrieta on 02-02-2022 CO2 [Moles/Vol] 22.6 mmol/L 22.0-30.0 [facility] Serum or plasma urea nitroge n measurement (mass/volume)Ordered By: Mia Arrieta on 02-02-2022 Urea nitrogen [Mass/Vol] 13 mg/dL 9-23 [facility] Specific gravity Auto test s trip (U) [Rel density]Ordered By: Mia Arrieta on 02-02-2022 Specific gravity (U) [Rel density] 1.028 1.001-1.030 [facility] Urine clarity by refractomet ry automatedOrdered By: Mia Arrieta on 02-02-2022 Clarity Refractometry automated (U) Clear Clear [facility] Urine glucose measurement by automated test strip (mass/volume)Ordered By: Mia Arrieta on 02-02-2022 Glucose Auto test strip (U) [Mass/Vol] Normal mg/dL Normal [facility] Urine hemoglobin detection b y automated test stripOrdered By: Mia Arrieta on 02-02-2022 Hemoglobin Auto test strip Ql (U) Negative Negative [facility] Urine leukocyte esterase det ection by automated test stripOrdered By: Mia Arrieta on 02-02-2022 Leukocyte esterase Auto test strip Ql (U) Negative Negative [facility] Urobilinogen Auto test strip (U) [Mass/Vol]Ordered By: Mia Arrieta on 02-02-2022 Urobilinogen (U) [Mass/Vol] Normal mg/dL Normal [facility] pH Auto test strip (U)Ordere d By: Mia Arrieta on 02-02-2022 pH (U) 6.0 [pH] 5.0-9.0 [facility] COVID + FLU Quick Testingon 12-13-2021 SARS-CoV-2 (COVID-19) RNA MICHEAL+probe Ql (Unsp spec) negataive [employer] Other COVID + FLU Quick Testing Negative [employer] Other Quick Strepon 12-13-2021 S. pyogenes Org specific cx Ql (Throat) Positive [facility] [employer] Other Quick Strep [employer] Other CBC AUTO DIFFon 06-18-2021 BASO # 0.0 103/ul Normal 0.0-0.1 [facility] Comment on above: Performed By: #### C BC #### [facility] [address] [place] [address] Dr. Vincent Powell Basophils/100 WBC (Bld) 0.5 % Normal 0.2-2.0 [facility] Comment on above: Performed By: #### C BC #### [facility] [address] [place] [address] Dr. Vincent Powell EO # 0.2 103/ul Normal 0.0-0.7 [facility] Comment on above: Performed By: #### C BC #### [facility] [address] [place] [address] Dr. Vincent Powell Eosinophils/100 WBC (Bld) 1.9 % Normal 0.9-7.0 [facility] Comment on above: Performed By: #### C BC #### [facility] [address] [place] [address] Dr. Vincent Powell Erythrocyte distribution width (RBC) [Ratio] 13.1 % Normal 11.0-15.0 [facility] Comment on above: Performed By: #### C BC #### [facility] [address] [place] [address] Dr. Vincent Powell Hematocrit (Bld) [Volume fraction] 42.8 % Normal 36.0-48.0 [facility] Comment on above: Performed By: #### C BC #### [facility] [address] [place] [address] Dr. Vincent Powell Hemoglobin (Bld) [Mass/Vol] 13.6 g/dL Normal 12.0-16.0 [facility] Comment on above: Performed By: #### C BC #### [facility] [address] [place] [address] Dr. Vincent Powell IG # 0.03 10e3/ul Normal 0.00-0.03 [facility] Comment on above: Performed By: #### C BC #### [facility] [address] [place] [address] Dr. Vincent Powell IG % 0.4 % Normal 0.0-0.5 [facility] Comment on above: Performed By: #### C BC #### [facility] [address] [place] [address] Dr. Vincent Powell LYMPH # 2.5 103/ul Normal 1.2-3.8 [facility] Comment on above: Performed By: #### C BC #### [facility] [address] [place] [address] Dr. Vincent Powell Lymphocytes/100 WBC (Bld) 29.0 % Normal 20.5-60.0 [facility] Comment on above: Performed By: #### C BC #### [facility] [address] [place] [place] [address] Dr. Vincent Powell MANUAL DIFF REQ NO Normal [facility] Comment on above: Performed By: #### C BC #### [facility] [address] [place] [address] Dr. Vincent Powell MCH (RBC) [Entitic mass] 27.1 pg Normal 26.7-34.0 [facility] Comment on above: Performed By: #### C BC #### [facility] [address] [place] [address] Dr. Vincent Powell MCHC (RBC) [Mass/Vol] 31.8 g/dL Normal 29.9-35.2 [facility] Comment on above: Performed By: #### C BC #### [facility] [address] [place] [address] Dr. Vincent Powell MCV (RBC) [Entitic vol] 85.3 fL Normal 81.0-99.0 [facility] Comment on above: Performed By: #### C BC #### [facility] [address] [place] [address] Dr. Vincent Powell MONO # 0.7 103/ul Normal 0.3-0.8 [facility] Comment on above: Performed By: #### C BC #### [facility] [address] [place] [address] Dr. Vincent Powell Monocytes/100 WBC (Bld) 7.7 % Normal 1.7-12.0 [facility] Comment on above: Performed By: #### C BC #### [facility] [address] [place] [address] Dr. Vincent Powell NEUT # 5.2 103/ul Normal 1.4-6.5 [facility] Comment on above: Performed By: #### C BC #### [facility] [address] [place] [address] Dr. Vincent Powell Neutrophils/100 WBC (Bld) 60.5 % Normal 43.0-75.0 [facility] Comment on above: Performed By: #### C BC #### [facility] [address] [place] [address] Dr. Vincent Powell Platelet mean volume (Bld) [Entitic vol] 10.1 fL Normal 9.5-13.5 [facility] Comment on above: Performed By: #### C BC #### [facility] [address] [place] [address] Dr. Vincent Powell PLT 349 103/ul Normal 150-450 [facility] Comment on above: Performed By: #### C BC #### [facility] [address] [place] [address] Dr. Vincent Powell RBC 5.02 106/ul Normal 4.20-5.40 [facility] Comment on above: Performed By: #### C BC #### [facility] [address] [place] [address] Dr. Vincent Powell WBC 8.5 103/ul Normal 4.0-11.0 [facility] Comment on above: Performed By: #### C BC #### [facility] [address] [place] [address] Dr. Vincent Powell CREATININEon 06-18-2021 Creatinine [Mass/Vol] 0.70 mg/dL Normal 0.52-1.04 [facility] Comment on above: Performed By: #### C CELE FERNANDEZ, CMP #### [facility] [address] [place] [address] Dr. Vincent Powell EGFR-AF GAMBIAN >60 Normal >=60 [facility] Comment on above: Performed By: #### C CELE FERNANDEZ, CMP #### [facility] [address] [place] [address] Dr. Vincent Powell EGFR-NON AF GAMBIAN >60 Normal >=60 [facility] Comment on above: Performed By: #### C CELE FERNANDEZ, CMP #### [facility] [address] [place] [address] Dr. Vincent Powell CULTURE URINEon 06-18-2021 CULTURE URINE Culture Observations : HEAVY GROWTH OF MIXED GENITAL ZIGGY. NO POTENTIAL PATHOGENS SEEN. Normal [facility] Comment on above: Performed By: #### U RCX #### [facility] [address] [place] [address] Dr. Vincent Powell PROF 14(COMP METB)on 021 Albumin [Mass/Vol] 3.5 g/dL Normal 3.5-5.0 [facility] Comment on above: Performed By: #### C CELE FERNANDEZ, CMP #### [facility] [address] [address] [address] Vincent Powell Albumin/Globulin [Mass ratio] 0.8 {ratio} Normal [facility] Comment on above: Performed By: #### C JIM, TSH, CMP #### [facility] [address] [address] [address] Vincent Powell ALP [Catalytic activity/Vol] 122 U/L Normal 38-126 [facility] Comment on above: Performed By: #### C JIM, TSH, CMP #### [facility] [address] [address] [address] Vincent Powell ALT [Catalytic activity/Vol] 19 U/L Normal 9-52 [facility] Comment on above: Performed By: #### C JIM, TSH, CMP #### [facility] [address] [place] [address] Dr. Vincent Powell Anion gap [Moles/Vol] 10.9 mmol/L Normal [facility] Comment on above: Performed By: #### C JIM, TSH, CMP #### [facility] [address] [address] [address] Vincent Powell AST [Catalytic activity/Vol] 16 U/L Normal 14-36 [facility] Comment on above: Performed By: #### C JIM, TSH, CMP #### [facility] [address] [address] [address] Vincent Powell Bilirubin [Mass/Vol] 0.4 mg/dL Normal 0.2-1.3 [facility] Comment on above: Performed By: #### C JIM, TSH, CMP #### [facility] [address] [address] [address] Vincent Powell Calcium [Mass/Vol] 9.1 mg/dL Normal 8.4-10.2 [facility] Comment on above: Performed By: #### C JIM, TSH, CMP #### [facility] [address] [address] [address] Vincent Powell Chloride [Moles/Vol] 105 mmol/L Normal 98-107 [facility] Comment on above: Performed By: #### C JIM, TSH, CMP #### [facility] [address] [address] [address] Vincent Powell CO2 [Moles/Vol] 29.3 mmol/L Normal 22.0-30.0 [facility] Comment on above: Performed By: #### C JIM, TSH, CMP #### [facility] [address] [place] [address] Dr. Vincent Powell Globulin (S) [Mass/Vol] 4.3 g/dL Normal [facility] Comment on above: Performed By: #### C JIM TSH, CMP #### [facility] [address] [place] [address] Dr. Vincent Powell Glucose [Mass/Vol] 89 mg/dL Normal 74-106 [facility] Comment on above: Performed By: #### C JIM TSH, CMP #### [facility] [address] [place] [address] Dr. Vincent Powell Potassium [Moles/Vol] 4.2 mmol/L Normal 3.4-5.0 [facility] Comment on above: Performed By: #### C JIM TSH, CMP #### [facility] [address] [place] [address] Dr. Vincent Powell Protein [Mass/Vol] 7.8 g/dL Normal 6.1-8.2 [facility] Comment on above: Performed By: #### C JIM TSH, CMP #### [facility] [address] [place] [address] Dr. Vincent Powell Sodium [Moles/Vol] 141 mmol/L Normal 137-145 [facility] Comment on above: Performed By: #### C JIM, TSH, CMP #### [facility] [address] [place] [address] Dr. Vincent Powell Urea nitrogen [Mass/Vol] 7.0 mg/dL Normal 6.4-19.3 [facility] Comment on above: Performed By: #### C JIM, TSH, CMP #### [facility] [address] [place] [address] Dr. Vincent Powell Urea nitrogen/Creatinine [Mass ratio] 10.0 mg/mg Normal [facility] Comment on above: Performed By: #### C JIM, TSH, CMP #### [facility] [address] [place] [address] Dr. Vincent Powell TSHon 06-18-2021 TSH 0.557 uIU/mL Normal 0.430-3.750 [facility] Comment on above: Performed By: #### C JIM, TSH, CMP #### [facility] [address] [place] [address] Dr. Vincent Powell TSH RANGE SEE BELOW Normal [facility] Comment on above: Result Comment: <0.3 4 UIU/ml HYPERTHYROID 0.34-5.60 UIU/ml EUTHYROID >5.60 UIU/ml HYPOTHYROID Performed By: #### C JIM, TSH, CMP #### [facility] [address] [place] [address] Dr. Vincent Powell UA RANDOM W/MICROSCOPICon BACTERIA TRACE Abnormal NONE SEEN [facility] Comment on above: Performed By: #### U AMIC #### [facility] [address] [place] [address] Dr. Vincent Powell Bilirubin Ql (U) Negative Normal NEGATIVE [facility] Comment on above: Performed By: #### U AMIC #### [facility] [address] [place] [address] Dr. Vincent Powell CAST NONE SEEN Normal NONE SEEN [facility] Comment on above: Performed By: #### U AMIC #### [facility] [address] [place] [address] Dr. Vincent Powell Clarity (U) CLEAR Normal CLEAR [facility] Comment on above: Performed By: #### U AMIC #### [facility] [address] [place] [address] Dr. Vincent Powell Color (U) YELLOW Normal YELLOW [facility] Comment on above: Performed By: #### U AMIC #### [facility] [address] [place] [address] Dr. Vincent Powell Crystals LM Nom (Urine sed) NONE SEEN Normal NONE SEEN [facility] Comment on above: Performed By: #### U AMIC #### [facility] [address] [address] [address] Vincent Powell Epithelial cells LM Ql (Urine sed) NONE SEEN Normal NONE SEEN /RARE [facility] Comment on above: Performed By: #### U AMIC #### [facility] [address] [address] [address] Vincent Powell Glucose Ql (U) Negative Normal NEGATIVE [facility] Comment on above: Performed By: #### U AMIC #### [facility] [address] [address] [address] Vincent Powell Hemoglobin Ql (U) Negative Normal NEGATIVE [facility] Comment on above: Performed By: #### U AMIC #### [facility] [address] [place] [address] Dr. Vincent Powell Ketones Ql (U) Negative Normal NEGATIVE [facility] Comment on above: Performed By: #### U AMIC #### [facility] [address] [address] [address] Vincent Powell LEUKOCYTES Negative Normal NEGATIVE [facility] Comment on above: Performed By: #### U AMIC #### [facility] [address] [address] [address] Vincent Powell MUCOUS NONE SEEN Normal NONE SEEN [facility] Comment on above: Performed By: #### U AMIC #### [facility] [address] [address] [address] Vincent Powell Nitrite Ql (U) Negative Normal NEGATIVE [facility] Comment on above: Performed By: #### U AMIC #### [facility] [address] [address] [address] Vincent Powell pH (U) 5.5 [pH] Normal 5-9 [facility] Comment on above: Performed By: #### U AMIC #### [facility] [address] [address] [address] Vincent Powell RBC NONE SEEN Abnormal 0-2 [facility] Comment on above: Performed By: #### U AMIC #### [facility] [address] [address] [address] Vincent Powell SPEC GRAVITY >=1.030 Abnormal 1.005-<=1.0 25 [facility] Comment on above: Performed By: #### U AMIC #### [facility] [address] [address] [address] Vincent Powell UA PROTEIN Negative Normal NEGATIVE/ TRACE [facility] Comment on above: Performed By: #### U AMIC #### [facility] [address] [address] [address] Vincent Powell Urobilinogen Qn (U) 0.2 {Erin'U}/dL Normal 0.2 - 1. 0 [facility] Comment on above: Performed By: #### U AMIC #### [facility] [address] [address] [address] Vincent Powell WBC NONE SEEN Normal NONE SEEN [facility] Comment on above: Performed By: #### U AMIC #### [facility] [address] [address] [address] 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 : [phone] What are the patient's signs and symptoms? : CT showed cyst or hemangioma of the liver 2 cm Right upper lobe, overweight. SocHx: Non-smoker Tobacco Use Screening; Status:Complete; Done: [id number] Perform:Not Applicable;Ordered; For:SocHx: Non-smoker; Ordered By:Essence Goodman; Patient Discussion/Summary Abnormal CT of the liver increased weight RUQ pain reflux hematochezia Plan continue the omeprazole with the pain lay down and the on one side or the other to see if the gas will move. or hands and knee. Ultrasound of the liver take Tylenol first for pain and Motrin only if necessary. Follow up in a month. For issues or concerns call the Office [phone]. On the week end [phone] and ask for peds GI spinner iron. For Scheduling [phone] Chief Complaint Accompanied by grandparent(s). New patient for abnormal finding on CT History of Present Illness 15 y F here for a new pt visit at the request of Dr. Ling Bustamante for hemangioma of the liver. No records in [facility]. Normal CMP CBC and CT with cystic lesion vs hemangioma of the Rt lobe of liver, not able to view images. She is on buspirone, Quetiapine, lamotrigine, lithium and omeprazole and Zofran. She has RUQ pain. She takes NSAIDs. She has bloating and nausea. She denies constipation and diarrhea. Obese and Increased alk phos and cyst of ovary. BCP for PCOS. She has severe stomach pain every 2 weeks. Out of the blue. Heat makes it better. She takes ondansetron and omeprazole. No nausea and it is like cramping. It lasts 1-2 hours and it goes away. It is not associated with eating. No vomiting. No food stuck and no sore throat or mouth sores. The omeprazole helps with the reflux. It is worse when she is moving. She has a lot of gas and she has some bloating. They stopped milk, but she still has the pain. She feels like the air is stuck . BM's normal, but she has bright red blood and it is the first time she has seen it, it occurred with wiping. Denies hard stool. No stool today. Twin , induced labor and delivery. Weight 5 lbs oz at 38 weeks gestation. No problems in the nursery. Regular Formula, She was fussy no spitting and normal weight gain and normal BM's. No problems with the transition to . Regular diet with Cow Milk. Development was altered. Review of Systems Constitutional: excessive weight gain, but no fever, no fatigue, no change in appetite and no weight loss. Eyes: no vision problems, no eye pain and no sclera icterus. ENT: ear pain, but no mouth ulcers and no sore throat . lots of ear infections. Cardiovascular: no chest pain. Respiratory: no cough, no wheezing and no shortness of breath. Gastrointestinal: regurgitation, abdominal pain, bloating and hematochezia, but as noted in HPI, no diarrhea, no constipation, no melena and no artie colored stools. Genitourinary: no increased urine frequency, no dysuria and no abnormal vaginal bleeding . BCP PCos. Musculoskeletal: back pain, but no arthralgia, no joint swelling and no muscle weakness. Integumentary: no rashes and no skin lesion(s) . no eczema. Neurological: headaches and dizziness, but no seizures and no fainting . light headed. Endocrine: no short stature. Hematologic/Lymphatic : no excessive bleeding and no excessive bruising. Psychiatric: anxiety and sleep disturbance, but no depression . Bipolar. Past Medical History Problems History of No prior hospitalisations Surgical History Problems No history of surgery Family History Mother Family history of bipolar disorder (V17.0) (Z81.8) Family history of migraine headaches (V17.2) (Z82.0) Father Family history of Environmental allergies Maternal Grandmother Family history of migraine headaches (V17.2) (Z82.0) Paternal Grandmother Family history of thyroid nodule (V18.19) (Z83.49) Paternal Grandfather Family history of asthma (V17.5) (Z82.5) Maternal Aunt Family history of bipolar disorder (V17.0) (Z81.8) Family history of migraine headaches (V17.2) (Z8 (more content not included)... Normal [facility] FSHon 10-21-2020 FSH 7.2 mIU/mL Normal [facility] Comment on above: Result Comment: Adul t Female: Follicular phase 3.5 - 12.5 Ovulation phase 4.7 - 21.5 Luteal phase 1.7 - 7.7 Postmenopausal 25.8 - 134.8 Performed By: #### L [facility] #### [facility] [address] [address] Federico Cho Vital Signs Date Time Vital Sign Value Performing Clinician Facility 01-09-2025 14:17-0400 Body height 160.02 cm [facility] [employer] Work Phone: [facility] 01-09-2025 14:17-0400 Body temperature 97.7 [degF] [facility] [employer] Work Phone: [facility] 01-09-2025 14:17-0400 Body weight 108.3 kg [facility] [employer] Work Phone: [facility] 01-09-2025 14:17-0400 Diastolic blood pressure 86 mm[Hg] [facility] [employer] Work Phone: [facility] 01-09-2025 14:17-0400 Heart rate 99 /min [facility] [employer] Work Phone: [facility] 01-09-2025 14:17-0400 Respiratory rate 22 /min [facility] [employer] Work Phone: [facility] 01-09-2025 14:17-0400 SaO2% (BldA) [Mass fraction] 97 % [facility] [employer] Work Phone: [facility] 01-09-2025 14:17-0400 Systolic blood pressure 130 mm[Hg] [facility] [employer] Work Phone: [facility] 12-22-2024 10:58-0400 Body temperature 97.7 [degF] Elmo Marshall DO Work Phone: [facility] 12-22-2024 10:58-0400 Body weight 108.86 kg Elmo Marshall DO Work Phone: [facility] 12-22-2024 10:58-0400 Diastolic blood pressure 78 mm[Hg] Elmo Marshall DO Work Phone: [facility] 12-22-2024 10:58-0400 Heart rate 85 /min Elmo Marshall DO Work Phone: [facility] 12-22-2024 10:58-0400 SaO2% (BldA) [Mass fraction] 98 % Elmo Marshall DO Work Phone: [facility] 12-22-2024 10:58-0400 Systolic blood pressure 120 mm[Hg] Elmo Marshall DO Work Phone: [facility] 10-30-2024 09:10-0400 Body temperature 97.59 [degF] Arcenio Shah DO Work Phone: [facility] 10-30-2024 09:10-0400 Body weight 101.9 kg Arcenio Pradeep DO Work Phone: [facility] 10-30-2024 09:10-0400 Heart rate 110 /min Arcenio Shah DO Work Phone: [facility] 10-30-2024 09:10-0400 SaO2% (BldA) [Mass fraction] 99 % Arcenio Shah DO Work Phone: [facility] 06-09-2024 19:02-0500 Body height 160.02 cm [facility] [employer] Work Phone: [facility] 06-09-2024 19:02-0500 Body temperature 98.4 [degF] [facility] [employer] Work Phone: [facility] 06-09-2024 19:02-0500 Body weight 100 kg [facility] [employer] Work Phone: [facility] 06-09-2024 19:02-0500 Diastolic blood pressure 68 mm[Hg] [facility] [employer] Work Phone: [facility] 06-09-2024 19:02-0500 Heart rate 80 /min [facility] Work Phone: [facility] 06-09-2024 19:02-0500 Respiratory rate 18 /min [facility] Work Phone: [facility] 06-09-2024 19:02-0500 SaO2% (BldA) [Mass fraction] 97 % [facility] Work Phone: [facility] 06-09-2024 19:02-0500 Systolic blood pressure 132 mm[Hg] [facility] Work Phone: [facility] 02-18-2024 01:00-0400 Diastolic blood pressure 66 mm[Hg] [facility] Work Phone: [facility] 02-18-2024 01:00-0400 Heart rate 86 /min [facility] Work Phone: [facility] 02-18-2024 01:00-0400 Respiratory rate 17 /min [facility] Work Phone: [facility] 02-18-2024 01:00-0400 SaO2% (BldA) [Mass fraction] 99 % [facility] Work Phone: [facility] 02-18-2024 01:00-0400 Systolic blood pressure 108 mm[Hg] [facility] Work Phone: [facility] 02-17-2024 22:22-0400 Body temperature 98.7 [degF] [facility] Work Phone: [facility] 02-17-2024 19:14-0400 Body height 157.48 cm [facility] Work Phone: [facility] 02-17-2024 19:14-0400 Body weight 110.2 kg [facility] Work Phone: [facility] 12-29-2023 22:10-0400 Body height 160.02 cm [facility] Work Phone: [facility] 12-29-2023 22:10-0400 Body temperature 98.2 [degF] [facility] Work Phone: [facility] 12-29-2023 22:10-0400 Body weight 113.25 kg [facility] Work Phone: [facility] 12-29-2023 22:10-0400 Diastolic blood pressure 88 mm[Hg] [facility] Work Phone: [facility] 12-29-2023 22:10-0400 Heart rate 91 /min [facility] Work Phone: [facility] 12-29-2023 22:10-0400 Respiratory rate 18 /min [facility] Work Phone: [facility] 12-29-2023 22:10-0400 SaO2% (BldA) [Mass fraction] 98 % [facility] Work Phone: [facility] 12-29-2023 22:10-0400 Systolic blood pressure 161 mm[Hg] [facility] Work Phone: [facility] 08-09-2023 15:45-0500 Diastolic blood pressure 76 mm[Hg] [facility] Work Phone: [facility] 08-09-2023 15:45-0500 Heart rate 83 /min [facility] Work Phone: [facility] 08-09-2023 15:45-0500 Respiratory rate 18 /min [facility] Work Phone: [facility] 08-09-2023 15:45-0500 SaO2% (BldA) [Mass fraction] 99 % [facility] Work Phone: [facility] 08-09-2023 15:45-0500 Systolic blood pressure 128 mm[Hg] [facility] Work Phone: [facility] 08-09-2023 13:15-0500 Body height 157.48 cm [facility] Work Phone: [facility] 08-09-2023 13:15-0500 Body temperature 98.4 [degF] Services [facility] Work Phone: [facility] 08-09-2023 13:15-0500 Body weight 113.39 kg Services [facility] Work Phone: [facility] 07-13-2023 14:00-0500 Diastolic blood pressure 97 mm[Hg] Tenzin Alejandra [facility] 07-13-2023 14:00-0500 Heart rate 94 /min Tenzin Alejandra [facility] 07-13-2023 14:00-0500 Mean blood pressure 112 mm[Hg] Tenzin Alejandra [facility] 07-13-2023 14:00-0500 SaO2% (BldA) [Mass fraction] 100 % Tenzin Alejandra [facility] 07-13-2023 14:00-0500 Systolic blood pressure 141 mm[Hg] Tenzin Alejandra [facility] 07-13-2023 02:52-0500 Diastolic blood pressure 105 mm[Hg] Tenzin Alejandra [facility] 07-13-2023 02:52-0500 Heart rate 93 /min Tenzin Alejandra [facility] 07-13-2023 02:52-0500 Mean blood pressure 118 mm[Hg] Tenzin Alejandra [facility] 07-13-2023 02:52-0500 SaO2% (BldA) [Mass fraction] 99 % Tenzin Alejandra [facility] 07-13-2023 02:52-0500 Systolic blood pressure 144 mm[Hg] Tenzin Alejandra [facility] 07-13-2023 01:30-0500 Diastolic blood pressure 93 mm[Hg] Tenzin Alejandra [facility] 07-13-2023 01:30-0500 Heart rate 93 /min Tenzin Alejandra [facility] 07-13-2023 01:30-0500 Mean blood pressure 109 mm[Hg] Tenzin Alejandra [facility] 07-13-2023 01:30-0500 SaO2% (BldA) [Mass fraction] 100 % Tenzin Alejandra [facility] 07-13-2023 01:30-0500 Systolic blood pressure 140 mm[Hg] Tenzin Alejandra [facility] 07-12-2023 22:58-0500 Body temperature 97.52 [degF] Tenzin Alejandra [facility] 07-12-2023 22:58-0500 Heart rate 90 /min Tenzin Alejandra [facility] 07-12-2023 22:58-0500 Respiratory rate 18 /min Tenzin Alejandra [facility] 06-14-2023 07:30-0500 Body temperature 97.3 [degF] [facility] Work Phone: [facility] 06-14-2023 07:30-0500 Diastolic blood pressure 74 mm[Hg] [facility] Work Phone: [facility] 06-14-2023 07:30-0500 Heart rate 113 /min [facility] Work Phone: [facility] 06-14-2023 07:30-0500 Respiratory rate 16 /min [facility] Work Phone: [facility] 06-14-2023 07:30-0500 SaO2% (BldA) [Mass fraction] 97 % [facility] Work Phone: [facility] 06-14-2023 07:30-0500 Systolic blood pressure 114 mm[Hg] [facility] Work Phone: [facility] 06-11-2023 14:34-0500 Body height 160.02 cm [facility] Work Phone: [facility] 06-10-2023 14:39-0500 Body weight 114.75 kg [facility] Work Phone: [facility] 06-10-2023 13:07-0500 Diastolic blood pressure 91 mm[Hg] [facility] Work Phone: [facility] 06-10-2023 13:07-0500 Heart rate 85 /min [facility] Work Phone: [facility] 06-10-2023 13:07-0500 Respiratory rate 16 /min [facility] Work Phone: [facility] 06-10-2023 13:07-0500 SaO2% (BldA) [Mass fraction] 99 % [facility] Work Phone: [facility] 06-10-2023 13:07-0500 Systolic blood pressure 133 mm[Hg] [facility] Work Phone: [facility] 06-10-2023 11:31-0500 Body height 160.02 cm [facility] Work Phone: [facility] 06-10-2023 11:31-0500 Body temperature 97.7 [degF] [facility] Work Phone: [facility] 06-10-2023 11:31-0500 Body weight 113.9 kg [facility] Work Phone: [facility] 05-16-2023 01:48-0400 Body temperature 97.7 [degF] [facility] Work Phone: [facility] 05-16-2023 01:48-0400 Diastolic blood pressure 64 mm[Hg] [facility] Work Phone: [facility] 05-16-2023 01:48-0400 Heart rate 88 /min [facility] Work Phone: [facility] 05-16-2023 01:48-0400 Respiratory rate 16 /min [facility] Work Phone: [facility] 05-16-2023 01:48-0400 SaO2% (BldA) [Mass fraction] 97 % [facility] Work Phone: [facility] 05-16-2023 01:48-0400 Systolic blood pressure 114 mm[Hg] [facility] Work Phone: [facility] 05-15-2023 23:03-0400 Body height 160.02 cm [facility] [employer] Work Phone: [facility] 05-15-2023 23:03-0400 Body weight 115 kg [facility] Work Phone: [facility] 12-29-2022 03:38-0400 Diastolic blood pressure 58 mm[Hg] Tenzin Alejandra [facility] 12-29-2022 03:38-0400 Heart rate 82 /min Tenzin Alejandra [facility] 12-29-2022 03:38-0400 Hourly Rounding Tenzin Alejandra [facility] 12-29-2022 03:38-0400 Mean blood pressure 75 mm[Hg] Tenzin Alejandra [facility] 12-29-2022 03:38-0400 Respiratory rate 20 /min Tenzin Alejandra [facility] 12-29-2022 03:38-0400 SaO2% (BldA) [Mass fraction] 98 % Tenzin Alejandra [facility] 12-29-2022 03:38-0400 Systolic blood pressure 110 mm[Hg] Tenzin Alejandra [facility] 12-29-2022 02:23-0400 Diastolic blood pressure 78 mm[Hg] Tenzin Alejandra [facility] 12-29-2022 02:23-0400 Heart rate 93 /min Tenzin Alejandra [facility] 12-29-2022 02:23-0400 Hourly Rounding Tenzin Alejandra [facility] 12-29-2022 02:23-0400 Mean blood pressure 91 mm[Hg] Tenzin Alejandra [facility] 12-29-2022 02:23-0400 Respiratory rate 14 /min Tenzin Alejandra [facility] 12-29-2022 02:23-0400 SaO2% (BldA) [Mass fraction] 100 % Tenzin Alejandra [facility] 12-29-2022 02:23-0400 Systolic blood pressure 118 mm[Hg] Tenzin Alejandra [facility] 12-29-2022 01:47-0400 Body temperature 97.7 [degF] Tenzin Alejandra [facility] 12-29-2022 01:47-0400 bodymassindex 2.30 Tenzin Alejandra [facility] Comment on above: [facility]: [facility] 12-29-2022 01:47-0400 Diastolic blood pressure 80 mm[Hg] Tenzin Alejandra [facility] 12-29-2022 01:47-0400 Heart rate 92 /min Tenzin Alejandra [facility] 12-29-2022 01:47-0400 Height/Length Percentile 20.56 Tenzin Alejandra [facility] Comment on above: Result Comment: ^~:!Percentile Source -[facility] 12-29-2022 01:47-0400 Height/Length Z-Score -0.82 Tenzin Alejandra [facility] Comment on above: Result Comment: ^~:!ZScore [facility] 12-29-2022 01:47-0400 Hourly Rounding Tenzin Alejandra [facility] 12-29-2022 01:47-0400 Respiratory rate 16 /min Tenzin Alejandra [facility] 12-29-2022 01:47-0400 SaO2% (BldA) [Mass fraction] 100 % Tenzin Alejandra [facility] 12-29-2022 01:47-0400 Systolic blood pressure 130 mm[Hg] Tenzin Alejandra [facility] 12-29-2022 01:47-0400 weight 2.51 Tenzin Alejandra [facility] Comment on above: Result Comment: ^~:!ZScore [facility] 12-29-2022 01:47-0400 Weight Percentile 99.39 % Tenzin Alejandra [facility] Comment on above: Result Comment: ^~:!Percentile Source [facility] 12-16-2022 19:58-0400 Diastolic blood pressure 74 mm[Hg] [facility] Work Phone: [facility] 12-16-2022 19:58-0400 Heart rate 107 /min [facility] Work Phone: [facility] 12-16-2022 19:58-0400 Respiratory rate 20 /min [facility] Work Phone: [facility] 05-15-2023 19:58-0400 SaO2% (BldA) [Mass fraction] 100 % [facility] Work Phone: [facility] 12-16-2022 19:58-0400 Systolic blood pressure 134 mm[Hg] [facility] Work Phone: [facility] 12-16-2022 15:42-0400 Body height 157.48 cm [facility] Work Phone: [facility] 12-16-2022 15:42-0400 Body temperature 98.4 [degF] [facility] Work Phone: [facility] 12-16-2022 15:42-0400 Body weight 110.7 kg [facility] Work Phone: [facility] 02-02-2022 11:59-0400 Body temperature 97.5 [degF] [facility] Work Phone: [facility] 02-02-2022 11:59-0400 Diastolic blood pressure 79 mm[Hg] [facility] Work Phone: [facility] 02-02-2022 11:59-0400 Heart rate 82 /min [facility] Work Phone: [facility] 02-02-2022 11:59-0400 Respiratory rate 18 /min [facility] Work Phone: [facility] 02-02-2022 11:59-0400 SaO2% (BldA) [Mass fraction] 99 % [facility] Work Phone: [facility] 02-02-2022 11:59-0400 Systolic blood pressure 116 mm[Hg] [facility] Work Phone: [facility] 02-02-2022 10:05-0400 Body height 162.56 cm [facility] Work Phone: [facility] 02-02-2022 10:05-0400 Body mass index (BMI) [Percentile] Per age and sex 97.9 % [facility] Work Phone: [facility] 02-02-2022 10:05-0400 Body mass index (BMI) [Ratio] 36.3 kg/m2 [facility] [employer] Work Phone: [facility] 02-02-2022 10:05-0400 Body weight 96 kg Services [facility] Work Phone: [facility] 12-13-2021 14:10-0400 Body height Austin Katz Other [employer] [facility] [employer] Other 12-13-2021 14:10-0400 Body mass index (BMI) [Ratio] 38.97 kg/m2 Austin Katz Other [employer] Other 12-13-2021 14:10-0400 Body temperature 98.5 [degF] Austin Katz Other [employer] Other 12-13-2021 14:10-0400 Body weight 99.79 kg Austin Katz Other [employer] Other 12-13-2021 14:10-0400 Respiratory rate 20 /min Austin Katz Other [employer] Other 12-13-2021 14:10-0400 SaO2% (BldA) [Mass fraction] 98 % Austin Katz Other [employer] Other Encounters Encounter Date Encounter Type Care Provider Facility Start: 01-09-2025 End: 01-09-2025 Emergency department patient visit [facility] Work Phone: [facility] Work Phone: Start: 12-22-2024 End: 12-22-2024 Office outpatient visit 25 minutes Elmo Marshall DO Work Phone: [facility] Comment on above: Acute cystitis witho ut hematuria; Dysuria Start: 12-22-2024 End: 12-22-2024 ambulatory ELMO Marko MARSHALL Not Available Start: 10-30-2024 End: 10-30-2024 ambulatory ARCENIO SHAH Not Available Start: 10-30-2024 End: 10-30-2024 Office outpatient visit 25 minutes Arcenio Shah DO Work Phone: [facility] Comment on above: Viral pharyngitis (P rimary Dx); Pharyngitis, unspecified etiology; Viral gastroenteritis Start: 06-09-2024 End: 06-09-2024 Emergency department patient visit [facility] Work Phone: [facility] Work Phone: Start: 02-17-2024 End: 02-18-2024 Emergency department patient visit [facility] Work Phone: [facility] Work Phone: Start: 12-29-2023 End: 12-29-2023 Emergency department patient visit [facility] Work Phone: [facility] Work Phone: Start: 08-09-2023 End: 08-09-2023 Emergency department patient visit [facility] Work Phone: [facility] Work Phone: Start: 07-13-2023 End: 07-13-2023 Emergency department patient visit Tenzin Roberts Facility:[facility] Start: 07-12-2023 End: 07-13-2023 Emergency department patient visit Tenzin Roberts [facility] Start: 06-25-2023 ambulatory Tenzin Roberts Facility: [facility] Start: 06-10-2023 End: 06-14-2023 Evaluation and management of inpatient [facility] Work Phone: [facility] [place] [address] Work Phone: Start: 05-15-2023 End: 05-16-2023 Emergency department patient visit [facility] Work Phone: [facility] Work Phone: Start: 02-06-[address] Start: 12-29-2022 End: 12-29-2022 Emergency department patient visit Tenzin Roberts Facility:[facility] Start: 12-29-2022 End: 12-29-2022 Emergency department patient visit Tenzin Roberts [facility] Start: 12-16-2022 Evaluation and manag ement of inpatient Services [facility] Work Phone: [facility] [place] [address] Work Phone: Start: 02-02-2022 End: 02-02-2022 Emergency department patient visit [facility] Work Phone: [facility] Start: 12-13-2021 End: 12-13-2021 ambulatory Austin Katz Other [employer] [facility] Other Start: 12-13-2021 Office outpatient ne w 20 minutes Austin Katz [facility] Start: 06-18-2021 End: 06-19-2021 ambulatory ESTELA MIMS Facility:[facility] Start: 06-14-2021 End: 06-15-[address] NAHEED SIMONS Facility:[facility] Start: 11-22-2020 ambulatory ESTELA MIMS Facility:[facility] Start: 10-19-2020 End: 10-20-[address] LING BUSTAMANTE Facility:[facility] Procedures Date Procedure Procedure Detail Performing Clinician Start: 01-09-2025 Computed tomography of abdomen and pelvis with contrast Services [facility] Work Phone: Start: 12-22-2024 URINARY TRACT INFECT ION (HTRX) Elmo Marshall DO Work Phone: Start: 12-22-2024 Urnls dip stick/tabl et rgnt auto w/o microscopy Elmo Marshall DO Work Phone: Start: 10-30-2024 End: 10-30-2024 Infectious agent dna/rna influenza 1st 2 types Elmo Marshall DO Work Phone: Start: 06-09-2024 Plain X-ray of left shoulder [facility] [employer] Phone: Start: 06-09-2024 X-ray of cervical spine [facility] [employer] Phone: Start: 02-17-2024 Lactoferrin measurement [facility] [employer] Phone: Start: 08-09-2023 Computed tomography of abdomen and pelvis with contrast [facility] [employer] Phone: Start: 06-10-2023 Urine culture [facility] [employer] Phone: Start: 05-16-2023 Urine culture [facility] [employer] Phone: Start: 05-16-2023 CT of abdomen and pe lvis without contrast [facility] [employer] Phone: Start: 12-16-2022 CT of head without contrast [facility] [employer] Phone: Plan of Treatment Date Care Activity Detail Author Start: 04-04-2025 Influenza vaccination Influenz a Vaccine (Season Ended) [facility] Start: 04-04-2024 Influenza vaccination Influenza Vacc ine (#1) [facility] Start: 02-17-2024 [facility] Start: 02-17-2024 Computed tomography of abdomen and pelvis with contrast CT abdomen pelvis w con [facility] Start: 02-17-2024 CT Abdomen and Pelvi s W contrast IV [facility] Start: 02-17-2024 Bacteria identified in Urine by Culture [facility] Start: 08-09-2023 Bacteria identified in Urine by Culture Urine Culture [facility] Start: 06-14-2023 [facility] Start: 06-10-2023 Hospital admission [facility] Start: 06-10-2023 Bacteria identified in Urine by Culture Urine Culture [facility] Start: 05-16-2023 Bacteria identified in Urine by Culture Urine Culture [facility] Start: 05-16-2023 [facility] Start: 05-16-2023 CT Abdomen and Pelvi s WO contrast [facility] Start: 05-16-2023 CT of abdomen and pe lvis without contrast CT abdomen pelvis wo con [facility] Bacteria identified in Urine by Culture [facility] Bacterial cytolethal distending toxin cdt gene [Presence] in Unspecified specimen by MICHEAL with probe detection [facility] Patient Education [facility] Work Phone: Patient referral [facility] Work Phone: Immunizations Immunization Date Immunization Notes Care Provider Fa cili 06-12-2023 influenza, injectabl e, quadrivalent, preservative free [facility] Work Phone: [facility] 06-12-2023 influenza virus vaccine, unspecified formulation Arcenio Shah DO Work Phone: [facility] 05-08-2020 influenza virus vaccine, unspecified formulation Tenzin Roberts [facility] Payers Date Payer Category Payer Self-pay [id number] 2023 Private Health Insurance [employer] [id number] 2023 Unknown [id number] 2003 Unknown [id number] 2003 Unknown [id number] 727 2003 Unknown [id number] 727 2003 Unknown [id number] 1259 2003 Unknown [id number]. 1259 1974 Unknown [id number]. 593 1974 Unknown [id number]. 593 1974 Unknown [id number]. 593 1974 Unknown [id number] [id number]. 593 1959 Unknown [id number] 1959 Unknown [id number] [facility] [id number] Unknown [facility] [id number] Unknown [id number] 531 Unknown [id number] Unknown [id number] Social History Date Type Detail Facility Sex Assigned At [facility] Start: 02-02-2022 End: 01-09-2025 Tobacco smoking status NHIS Never smoked tobacco (finding) [facility] Comment on above: both parents smoke Start: 2005 Sex Assigned At Female [facility] Tobacco smoking status Never [facility] Comment on above: both parents smoke Start: 12-29-2023 End: 02-17-2024 Tobacco smoking status NHIS Smoker (finding) [facility] Tobacco smoking status [facility] Tobacco smoking consumption unknown [facility] Start: 2003 Sex assigned at Not on file [facility] Start: 01-09-2025 Sex Female (finding) [facility] NEGATED: Highlighted row [facility] Goals Date Patient Goal Desired Activity /State Functional Status Date Assessment Result Facility 07-12-2023 Functional Status N/A [facility] 06-14-2023 Functional status Patient at Baseline [facility] Work Phone: 12-29-2022 Functional Status N/A [facility] Mental Status Date Assessment Result Facility 06-14-2023 Cognitive function Cognitive Sta tus Patient at Baseline [facility] Work Phone: Clinical Notes 12-13-2021 to 01-09-2025 Elizabeth Monson MA - 12/22/2024 10:30 AM EDTPaurolando Shah DO - 10/30/2024 9:05 AM EDT Note Date & Type Note Facility 01-09-2025 Radiology Diagnostic study note [facility] [place] [address] CT Scan Report Signed Patient: Lizzie Muller MR#: [id number] : 2005 Acct:[id number] Age/Sex: 19 / F ADM Date: 5 Loc: ER Room: Type: [facility] ER Attending Dr: Copies to: Nic Whittaker APRN~ Ordering Provider: Nic Whittaker APRN Date of Service: 01/09/25 CT/CT abdomen pelvis w con: Abdominal Pain CT ABDOMEN AND PELVIS WITH INTRAVENOUS CONTRAST: CLINICAL HISTORY: Left-sided abdominal pain for one week, worse with bowel movements COMPARISON: 02/17/2024 TECHNIQUE: Spiral images were obtained through the abdomen and pelvis followingthe administration of intravenous contrast. This CT exam was performed using one or more following dose reduction techniques: Automated exposure control, adjustment of the mA and/or kV according to patient size, or use of iterative reconstruction technique. FINDINGS: Lung Bases: [No focal opacity] Organs:Liver, spleen, adrenals, kidneys, gallbladder and pancreas are unremarkable.[ GI: Mild retained stool. No bowel obstruction. Appendix is normal.[ Pelvis:[Uterus and adnexa are unremarkable. Bladder unremarkable.] Peritoneum/Retroperitoneum:No free air or free fluid. No suspicious adenopathy. Aorta unremarkable caliber.[ Abd wall/Bones:No suspicious osseous lesions.[ CT/CT abdomen pelvis w con IMPRESSION: Negative acute inflammatory process or bowel obstruction Impression dictated by: Moody Guzmán M.D. 01/09/2025 4:25 PM Dictation Location: [facility]-- Transcribed By: [facility] 01/09/251624 Dictated By: Moody Guzmán MD 01/09/251619 Signed By: 01/09/25 162 [facility] Work Phone: 01-09-2025 Hospital Discharge instructions Additional Instructions Follow-up with family services this week for further evaluation or treatment if required. Increase fluids. [facility] Work Phone: 12-22-2024 History of Present illness Narrative Images from the original note were not included. [address] , [address] [facility], [address] P: [phone] F: [phone] HPI Historian of HPI: patient Lizzie Muller is a 19 y.o. female who presents today to the Urgent Care with the following complaints and denials which have been present for 1 day(s) C/O Denies Symptom Comments [x] [] Dysuria [] [x] hematuria [] [x] Urinary frequency [] [x] Urinary incontinence [] [x] Urinary urgency [] [x] Genital itching [] [x] Genital discharge [x] [] Back pain Lower back pain [x] [] Abd pain Additional Comments: pt has taken ibuprofen OTC medication without relief Pt c/o lower back pain, dizziness, and nausea. Pt states she woke up this morning with those sx. She states it feels like when she previously had a kidney stone. IH Testing: An In-House UA has been obtained ROS A complete system ROS was performed and negative aside from the pertinent positives noted in the HPI and PE. PHYSICAL EXAM Examination General Examination: General examination: alert, oriented, normal affect, well-appearing, in no acute distress, well developed, well nourished. Head: normocephalic, atraumatic Eyes: sclera non-icteric Skin: normal Heart: no murmurs, regular rate and rhythm, S1, S2 normal Lungs: clear to auscultation bilaterally, good air movement, no wheezes, rales, rhonchi Abdomen: Suprapubic tenderness, no hepatosplenomegaly, no masses palpable. Musculoskeletal: Left CVA Tenderness Extremities: no edema, no cyanosis Neurologic: nonfocal Psych: alert, oriented, cognitive function intact, cooperative with exam. HPI, ROS, and PE reviewed and amended by Dr. Elmo Marshall as necessary. Written by RADHA Vasquez TREATMENT PLAN 1. Acute cystitis without hematuria Dx and Tx reviewed. Take meds as directed, push fluids. Urine sent to lab for culture. Follow with PCP as directed, to the ER for any worsening symptoms. - nitrofurantoin, macrocrystal-monohydrate, (Macrobid) 100 MG capsule; Take 1 capsule (100 mg) by mouth in the morning and 1 capsule (100 mg) before bedtime. Do all this for 7 days. Dispense: 14 capsule; Refill: 0 - URINARY TRACT INFECTION (HTRX) - phenazopyridine (Pyridium) 200 MG tablet; Take 1 tablet (200 mg) by mouth in the morning and 1 tablet (200 mg) in the evening and 1 tablet (200 mg) before bedtime. Do all this for 2 days. Dispense: 6 tablet; Refill: 0 2. Dysuria Dx reviewed - URINALYSIS ANALYZER TEST documented in this encounter [facility] 10-30-2024 History of Present illness Narrative Images from the original note were not included. [address] , [address] [facility], [address] P: [phone] F: [phone] HPI Historian of HPI: patient Lizzie Muller is a 19 y.o. female who presents today to the Urgent Care with the following complaints and denials which have been present for 3 day(s) Pt tested at home covid this morning which was negative. Pt admits to diarrhea and nausea. C/O Denies Symptom Comments [] [x] Runny Nose [] [x] Difficulty Swallowing [x] [] Sore Throat [] [x] Cough [] [x] Ear Pain [] [x] Fever [x] [] Chills [x] [] Nasal Congestion [x] [] Myalgia [x] [] Sinus Pain Frontal [x] [] Sinus Pressure Frontal Additional Comments: pt has taken day/nightquill, flonase OTC medication without relief ROS A complete system ROS was performed and negative aside from the pertinent positives noted in the HPI and PE. IH Testing: The following tests were performed PCR Strep Test PCR Flu Test SEE TEST(S) ORDERS FOR RESULTS PHYSICAL EXAM Physical Exam Constitutional: Appearance: Normal appearance. HENT: Right Ear: Tympanic membrane normal. Left Ear: Tympanic membrane normal. Nose: Congestion and rhinorrhea present. Mouth/Throat: Pharynx: No oropharyngeal exudate or posterior oropharyngeal erythema. Cardiovascular: Rate and Rhythm: Normal rate and regular rhythm. Pulmonary: Effort: Pulmonary effort is normal. Breath sounds: Normal breath sounds. Abdominal: General: There is no distension. Tenderness: There is no abdominal tenderness. Lymphadenopathy: Cervical: No cervical adenopathy. Neurological: Mental Status: She is alert. Psychiatric: Mood and Affect: Mood normal. TREATMENT PLAN Diagnoses and all orders for this visit: Viral pharyngitis (Primary) Pharyngitis, unspecified etiology - INFLUENZA DNA PROBE - STREP DNA PROBE Viral gastroenteritis Nothing by mouth for 4 hours if vomiting repeatedly. Use medication for nausea if prescribed. Then begin clear liquids. Drink Gatorade/Pedialyte if you have diarrhea. Slowly advance diet to full liquids, soft diet, and then regular diet. Avoid dairy and gas-producing foods. Do not take anti-diarrheal medication. Notify me or return if you worsen. Practice careful handwashing. The cough will be the last to resolve. I would suspect adenovirus based on GI and Respiratory simultaneous symptoms. documented in this encounter [facility] 07-13-2023 Hospital Discharge instructions Patient Education 07/13/2023 02:55:50 Abdominal Pain, Adult Abdominal Pain, Adult Pain in the abdomen (abdominal pain) can be caused by many things. Often, abdominal pain is not serious and it gets better with no treatment or by being treated at home. However, sometimes abdominal pain is serious. Your health care provider will ask questions about your medical history and do a physical exam to try to determine the cause of your abdominal pain. Follow these instructions at home: Medicines Take oujv-izc-omohrcl and prescription medicines only as told by your health care provider. Do not take a laxative unless told by your health care provider. General instructions Watch your condition for any changes. Drink enough fluid to keep your urine pale yellow. Keep all follow-up visits as told by your health care provider. This is important. Contact a health care provider if: Your abdominal pain changes or gets worse. You are not hungry or you lose weight without trying. You are constipated or have diarrhea for more than 2 3 days. You have pain when you urinate or have a bowel movement. Your abdominal pain wakes you up at night. Your pain gets worse with meals, after eating, or with certain foods. You are vomiting and cannot keep anything down. You have a fever. You have blood in your urine. Get help right away if: Your pain does not go away as soon as your health care provider told you to expect. You cannot stop vomiting. Your pain is only in areas of the abdomen, such as the right side or the left lower portion of the abdomen. Pain on the right side could be caused by appendicitis. You have bloody or black stools, or stools that look like tar. You have severe pain, cramping, or bloating in your abdomen. You have signs of dehydration, such as: ?Dark urine, very little urine, or no urine. ?Cracked lips. ?Dry mouth. ?Sunken eyes. ?Sleepiness. ?Weakness. You have trouble breathing or chest pain. Summary Often, abdominal pain is not serious and it gets better with no treatment or by being treated at home. However, sometimes abdominal pain is serious. Watch your condition for any changes. Take bcrw-pud-fdwtbio and prescription medicines only as told by your health care provider. Contact a health care provider if your abdominal pain changes or gets worse. Get help right away if you have severe pain, cramping, or bloating in your abdomen. This information is not intended to replace advice given to you by your health care provider. Make sure you discuss any questions you have with your health care provider. Document Revised: 09/08/2020 Document Reviewed: 11/29/2019 [employer] Patient Education 2022 [employer]. Follow Up Care 07/12/2023 22:49:47 With:FRANCI ESCALANTE Address: [address] [place] [address]- [phone] Business (1) When:Within 3 Day(s) [facility] 07-12-2023 Evaluation + Plan note Extrac renetta from: Title:ED Note Author:Tenzin Roberts DO Date :07/12/23 Abdominal pain, epigastric ( R10.13: Epigastric pain) Light headedness (R42: Dizziness and giddiness) Orders: Al hydroxide/Mg hydroxide/simethicone, 30 mL, Susp-Oral, Oral, Once, Stop date 07/13/23 0:31:00 EST, STAT, Start date 07/13/23 0:31:00 EST famotidine, 20 mg = 1 tab(s), Oral, BID, X 10 day(s), # 20 tab(s), Refills(s) 0, Pharmacy: [facility]/pharmacy #[id number], 160, cm, 07/12/23 23:02:00 EST, Height/Length Dosing, 115.5, kg, 07/12/23 23:02:00 EST, Weight Dosing famotidine, 20 mg = 2 mL, Soln-IV, IV Push, Once, Stop date 07/13/23 0:31:00 EST, STAT, Start date 07/13/23 0:31:00 EST, 07/13/23 0:31:00 EST ketorolac, 15 mg = 1 mL, Injection, IV Push, Once, Stop date 07/13/23 1:56:00 EST, STAT, Start date 07/13/23 1:56:00 EST, 07/13/23 1:56:00 EST ondansetron, 4 mg = 2 mL, Injection, IV Push, Once, Stop date 07/12/23 23:01:00 EST, STAT, Start date 07/12/23 23:01:00 EST, 07/12/23 23:01:00 EST ondansetron, 4 mg = 2 mL, Injection, IV Push, Once, Stop date 07/13/23 2:03:00 EST, STAT, Start date 07/13/23 2:03:00 EST, 07/13/23 2:03:00 EST ondansetron, 4 mg = 1 tab(s), Oral, q8hr, PRN Nausea/Vomiting, # 20 tab(s), Refills(s) 0, Pharmacy: [facility]/pharmacy #[id number], 160, cm, 07/12/23 23:02:00 EST, Height/Length Dosing, 115.5, kg, 07/12/23 23:02:00 EST, Weight Dosing Sodium Chloride 0.9% intravenous solution, 1,000 mL, Soln-IV, IV, Once, Stop date 07/12/23 23:01:00 EST, STAT, Start date 07/12/23 23:01:00 EST, Infuse over 61, minute(s) Sodium Chloride 0.9% intravenous solution 500 mL, 500 mL, IV, 500 mL/hr, for 60 minute(s), Stop date 07/13/23 2:56:00 EST, STAT, Start date 07/13/23 1:57:00 EST, 1 hour(s), Total volume (mL): 500, 115.5 kg, 2.27, m2 Add on Test Add on Test Automated Diff Basic Metabolic Panel CBC w/ Auto Diff D-Dimer eGFR Hepatic Function Panel Lipase Level Troponin 0 Hr. U Beta Hcg Qual UA With Cult Reflex [facility]05-28-2023 Evaluation + Plan noteExtracted from: Title:ED Note Author:Tenzin Roberts DO Date :12/29/22 Allergic reaction (T78.40XA: Allergy, unspecified, initial encounter) Orders: dexamethasone, 10 mg = 2.5 mL, Injection, Oral, Once, Stop date 12/29/22 2:26:00 EDT, STAT, Start date 12/29/22 2:26:00 EDT, 12/29/22 2:26:00 EDT [facility]05-28-2023 Hospital Discharge instructions Patient Education 12/29/2022 03:41:22 Allergies, Adult Allergies, Adult An allergy is a condition in which the body's defense system (immune system) comes in contact with an allergen and reacts to it. An allergen is anything that causes an allergic reaction. Allergens cause the immune system to make proteins for fighting infections (antibodies). These antibodies cause cells to release chemicals called histamines that set off the symptoms of an allergic reaction. Allergies often affect the nasal passages (allergic rhinitis), eyes (allergic conjunctivitis), skin(atopic dermatitis), and stomach. Allergies can be mild, moderate, or severe. They cannot spread from person to person. Allergies can develop at any age and may be outgrown. What are the causes? This condition is caused by allergens. Common allergens include: Outdoor allergens, such as pollen, car fumes, and mold. Indoor allergens, such as dust, smoke, mold, and pet dander. Other allergens, such as foods, medicines, scents, insect bites or stings, and other skin irritants. What increases the risk? You are more likely to develop this condition if you have: Family members with allergies. Family members who have any condition that may be caused by allergens, such as asthma. This may make you more likely to have other allergies. What are the signs or symptoms? Symptoms of this condition depend on the severity of the allergy. Mild to moderate symptoms Runny nose, stuffy nose (nasal congestion), or sneezing. Itchy mouth, ears, or throat. A feeling of mucus dripping down the back of your throat (postnasal drip). Sore throat. Itchy, red, watery, or puffy eyes. Skin rash, or itchy, red, swollen areas of skin (hives). Stomach cramps or bloating. Severe symptoms Severe allergies to food, medicine, or insect bites may cause anaphylaxis, which can be life-threatening. Symptoms include: A red (flushed) face. Wheezing or coughing. Swollen lips, tongue, or mouth. Tight or swollen throat. Chest pain or tightness, or rapid heartbeat. Trouble breathing or shortness of breath. Pain in the abdomen, vomiting, or diarrhea. Dizziness or fainting. How is this diagnosed? This condition is diagnosed based on your symptoms, your family and medical history, and a physicalexam. You may also have tests, including: Skin tests to see how your skin reacts to allergens that may be causing your symptoms. Tests include: ?Skin prick test. For this test, an allergen is introduced to your body through a small opening in the skin. ?Intradermal skin test. For this test, a small amount of allergen is injected under the first layerof your skin. ?Patch test. For this test, a small amount of allergen is placed on your skin. The area is covered and then checked after a few days. Blood tests. A challenge test. For this test, you will eat or breathe in a small amount of allergen to see if you have an allergic reaction. You may also be asked to: Keep a food diary. This is a record of all the foods, drinks, and symptoms you have in a day. Try an elimination diet. To do this: ?Remove certain foods from your diet. ?Add those foods back one by one to find out if any foods cause an allergic reaction. How is this treated? Treatment for allergies depends on your symptoms. Treatment may include: Cold, wet cloths (cold compresses) to soothe itching and swelling. Eye drops or nasal sprays. Nasal irrigation to help clear your mucus or keep the nasal passages moist. A humidifier to add moisture to the air. Skin creams to treat rashes or itching. Oral antihistamines or other medicines to block the reaction or to treat inflammation. Diet changes to remove foods that cause allergies. Being exposed again and again to tiny amounts of allergens to help you build a defense against it (tolerance). This is called immunotherapy. Examples include: ?Allergy shot. You receive an injection that contains an allergen. ?Sublingual immunotherapy. You take a small dose of allergen under your tongue. Emergency injection for anaphylaxis. You give yourself a shot using a syringe (auto-injector) that contains the amount of medicine you need. Your health care provider will teach you how to give yourself an injection. Follow these instructions at home: Medicines Take or apply ihds-auq-bxwekfy and prescription medicines only as told by your health care provider. Always carry your auto-injector pen if you are at risk of anaphylaxis. Give yourself an injection as told by your health care provider. Eating and drinking Follow instructions from your health care provider about eating or drinking restrictions. Drink enough fluid to keep your urine pale yellow. General instructions Wear a medical alert bracelet or necklace to let others know that you have had anaphylaxis before. Avoid known allergens whenever possible. Keep all follow-up visits as told by your health care provider. This is important. Contact a health care provider if: Your symptoms do not get better with treatment. Get help right away if: You have symptoms of anaphylaxis. These include: ?Swollen mouth, tongue, or throat. ?Pain or tightness in your chest. ?Trouble breathing or shortness of breath. ?Dizziness or fainting. ?Severe abdominal pain, vomiting, or diarrhea. These symptoms may represent a serious problem that is an emergency. Do not wait to see if the symptoms will go away. Get medical help right away. Call your local emergency services (911 in the [place] Do not drive yourself to the hospital. Summary Take or apply audd-lyu-glmtpla and prescription medicines only as told by your health care provider. Avoid known allergens when possible. Always carry your auto-injector pen if you are at risk of anaphylaxis. Give yourself an injection as told by your health care provider. Wear a medical alert bracelet or necklace to let others know that you have had anaphylaxis before. Anaphylaxis is a life-threatening emergency. Get help right away. This information is not intended to replace advice given to you by your health care provider. Make sure you discuss any questions you have with your health care provider. Document Revised: 03/19/2021 Document Reviewed: 05/31/2020 [employer] Patient Education 2022 [employer]. Follow Up Care 12/29/2022 01:33:08 With:MIA JARA Address: [address] [place], [place] [phone] Business (1) When:Within 3 Day(s) [facility]05-12-2022 Evaluation note* Encounter Date Diagnosis Assessment Notes Treatment Notes Treatment Clinical Notes December, Sore throat (ICD-10 - J02.9) strep pos, see above tx plan. December, Strep throat (ICD-10 - J02.0) Pt is to take abx as prescribed. take with food. Informed pt they are contagious for first 24 hrs on medication. Push fluids and rest. Pt is to take otc antipyretic prn for fever and aches. Change toothbrush after 2-3 days. Pt is to be re-evaluated after treatment if sx worsen or don't improve by pcp. Pt is to call the office with any questions or concerns regarding dx and tx. Pt understood and agreed to treatment plan. December, Contact with and (suspected) exposure to other viral communicable diseases (ICD-10 - Z20.828) covid and flu test negative. see above tx plan. [employer] Other Evaluation noteNo assessment information available [facility] Work Phone: Evaluation note* Diagnosis Onset Date Resolution Status Bipolar 1 disorder acute Suicidal ideations acute [facility] Work Phone: Evaluation note* Diagnosis Viral pharyngitis- Primary Acute pharyngitis Pharyngitis, unspecified etiology Viral gastroenteritis Intestinal infection due to other organism, NEC documented [facility] encounter [facility] Diagnosis Acute cystitis without hematuria Dysuria documented in this encounter [facility] Author Maurilio gerardo [facility] June 11, 2023 5:15pm Note Date/Time June 11, 2023 5 :15pm [facility] [address] [place] [address] Psychiatry H&P Signed Patient: Lizzie Muller MR#: [id number] : 2005 Acct:[id number] Age/Sex: 18 / F Adm Date: 3 Loc: Room: [address] [place] [address] Type: ADM IN Attending Dr: Maurilio Hackett MD Copies to: Maurilio Hackett MD [facility]~ Date of Service: 06/11/2023 HPI History of Present Illness History of present illness: Ms. Muller is a 18 year old female with reported psychiatric history of BipolarI disorder who presented due to concern of suicidal ideation. Patient states shewas seeing her counselor when she advised her to go to the ED. Her mother brought her to [facility]. Patient states her plan was to drive her car into the ditch. Patient states she has been experiencing a lot of stressors which includeher and her mother getting evicted from their apartment and is unsure where to go. Patient states she thought about employee housing but her mother would not be able to stay with her. States her father does not want her to move in with him either, and states her other siblings live with their dad. She states her parents have been for 5-6 years but there are still a lot of unresolvedissues between them which she believes her father takes out on patient due to her living with her mom. States he has become increasingly less supportive within the past three days. Patient also states her phone was recently shut off due to financial issues. States she has been compliant with medications and is planning to see a new psychiatrist on July 03. Rates anxiety 7/10 which she states is baseline for her. Rates depression 7/10 which she states is higherthan normal. Patient admits to self harm three days ago by burning her knuckles.Admits to suicidal ideation and thoughts about self harm when she is alone. Denies homicidal ideation. Patient denies current auditory hallucinations and states tapping noise she heard on admission has resolved. Denies visual hallucinations. States her appetite has been insatiable. States she has been able to sleep okay. Lists her mother and youngest sister as good support systems. Patient was personally seen by me on the day of the encounter. I reviewed the history and performed the newton elements of the assessment. I formulated the planof care and confirmed this with the medical student as noted below Past psych history: Bipolar I Disorder Family psych history: Mother, middle sister, brother: Bipolar I disorder; Maternal Aunt: Bipolar I Disorder; Father: depression Past hospitalizations: History of previous hospitalizations Past suicide attempts: Denies. States brother and father have attempted suicide in the past Previous medications: Lamictal, Lexapro, Trazodone Alcohol and drug use: Admits to use of vape when stressed. Denies use of alcohol, cigarettes, and recreational drugs. Living: Lives with mom but about to be evicted. Unsure where she will go once evicted. Employment: [employer] Review of symptoms: Constitutional: Denies fevers and chills Eyes: Denies change in vision ENT: Denies abnormal hearing Cardiovascular: Denies chest pain Respiratory: Denies dyspnea and cough Gastrointestinal: Denies change in bowel habits Genitourinary: Admits to increased frequency which is seeming to resolve. Deniesdysuria. Musculoskeletal: Denies headache Integumentary/Breasts: Denies dry skin Neurologic: Denies dizziness Psychiatric: Reports depression and suicidal ideation Physical exam: Const: cooperative Nutritional Appearance: average body habitus Orientation: alert, awake and oriented x3 HEENT: Head normal to inspection, hearing grossly normal bilaterally, external nose normal, face symmetric Eyes: appearance normal, both eyes and all related structuresl Neck: normal visual inspection and full ROM Resp: normal respiratory effort and able to speak in complete sentences Cardio: regular rate GI: normal to inspection Skin: Burn marmolejo on MCP joints. Neuro: CNI: Normal olfaction CNI: normal olfaction CNII: Visual lazaro intact, CNIII,IV,: EOM intact, no nystagmus. Pupils equal, round, reactive to light and accommodation, CNV: Sensation intact to light touch, CNVII: Raises eyebrows,smile/frown, puff out cheeks symmetrically, CNVIII: Hearing intact bilaterally, CNIX,X: Voice normal, soft palate elevation normal, symmetrical, CNXI: Shoulder shrug strong, equal bilaterally, CNXII: Tongue protrusion midline, movement symmetrical. Extrem: normal to inspection and full ROM Mental Status Exam: Appearance: grossly normal Mental Status: mental status grossly normal Mood: Dysthymic Affect: Constricted Speech and Movement: speech mumbled and difficult to understand. Movement normal. Attitude: cooperative Thought Process: normal Thought Content: Reports suicidality. Denies hallucinations and homicidality. Insight: fair Judgment: fair [facility] Medical History Bipolar 1 disorder Surgical History No pertinent past surgical history Family History (Updated 12/16/22 @ 23:48 by Cornelia Storm RN) Brother Suicide attempt Social History Smoking Status: Never smoker Tobacco Type: e-cigarettes Substance Use Type: None Social History Comments: Pt splits time between her moms, dads and grandmothers house. Meds Medications and Allergies Allergies No Known Allergies Allergy (Verified 06/10/23 11:30) Home Medications loratadine 10 mg tablet 10 mg PO DAILY PRN Allergic Symptoms 02/02/22 [History Confirmed 06/10/23] lamotrigine 200 mg tablet 200 mg PO HS 12/16/22 [History Confirmed 06/10/23] trazodone 150 mg tablet 150 mg PO QHS PRN Insomnia #30 tabs 12/20/22 [Rx Confirmed 06/10/23] escitalopram oxalate 10 mg tablet 20 mg PO DAILY 06/10/23 [History Confirmed 06/10/23] omeprazole 20 mg delayed release,disintegrating tablet 20 mg PO DAILY 06/10/23 [History Confirmed 06/10/23] Exam Physical Exam Vital Signs: Temp Pulse Resp BP Pulse Ox O2 Del Method 98.1 F 94 H 18 110/67 98 Room Air 06/10/23 20:20 06/10/23 20:20 06/10/23 20:20 06/10/23 20:20 06/10/23 20:20 06/10/23 20:20 Results Labs 06/10/23 12:18 06/10/23 12:18 Psychiatry Labs: 06/10/23 06/10/23 06/10/23 12:18 12:18 12:18 RBC 5.12 H Hgb 13.5 Hct 41.6 MCV 81.2 MCH 26.3 MCHC 32.4 RDW 15.0 Plt Count 366 MPV 8.7 Sodium 136 Potassium 4.3 Chloride 107 Carbon Dioxide 23.0 Anion Gap 10.3 BUN 8 Creatinine 0.67 Calcium 9.2 Total Bilirubin 0.4 AST 15 ALT 16 Alkaline Phosphatase 120 H Total Protein 7.8 Albumin 4.3 Urine Color Yellow Urine Appearance Clear Urine pH 8.0 Ur Specific [place] 1.018 Urine Protein Negative Urine Glucose (UA) Normal Urine Ketones Negative Urine Occult Blood Negative Urine Nitrite Negative Ur Leukocyte Esterase 3+ H Urine RBC 1-2 Urine WBC 20-49 H Assessment/Plan (1) Bipolar 1 disorder: Code(s): F31.9 - Bipolar disorder, unspecified Status: Acute (2) Suicidal ideations: Code(s): R45.851 - Suicidal ideations Status: Acute Plan Admit to 1S to ensure safety of self due to suicidal ideations. Continue to monitor suicidal behaviors. Continue home medications: Lamictal 200 mg PO HS, Lexapro 20 mg PO daily Begin Abilify 2 mg PO nightly Encourage group participation and medication compliance. Risk, benefits, alternatives explained. Documented By: Maurilio Hackett MD 3 [id number] Signed By: <Electronically signed by Maurilio Hackett MD> 06/11/23 1715 [facility] Work Phone: History general Narrative - Reported* Type Description Date Medical History [facility] [employer] Other Hospital course Narrative No data available for this section [facility] Additional Instructions Follow-up with your primary care doctor Return to ED if develop worsening [facility] Work [facility]: Hospital Discharge instructions Additional Instructions Follow-up with your primary care doctor Return to the follow-up worsening symptoms [facility] Work Phone: Hospital Discharge instructions Additional Instructions Follow up with your doctor. We are happy to see you if you have any problems or concerns.[facility] Work Phone: Hospital Discharge instructions Additional Instructions Make sure you are eating frequent meals and drinking plenty of fluids with sugar and electrolytes in them. Follow up with your primary care doctor for a recheck in the next few days.[facility] Work Phone: Progress note No data available for this section [facility] Summary Purpose Family History No Family History Records Found Relationship Condition Age at Onset Recorded Date/T margarette brother Attempted suicide Unknown Advance Directives No Advanced Directives Records Found Advance Directive Response Recorded Date/ Time Advance Directives No February 02 10:28am Advance Directive Response Recorded Date/ Time Advance Directives No February 02 9:28am Chief Complaint and Reason for Visit Chief Complaint abd pain Chief Complaint suicidal Chief Complaint lower back pain Chief Complaint lower back pain suicidal thoughts Chief Complaint lower back pain suicidal thoughts abd pain Reason for Visit Bipolar 1 disorder Suicidal ideations Chief Complaint cough Chief Complaint cough abdominal pain, lower left side Chief Complaint L Shoulder/Back Pain , NKI Chief Complaint Admit Date abd pain January 09, 2025 1:58p m Additional Source Comments INFORMATION SOURCE (unrecogn ized section and content) DATE CREATED AUTHOR 02/18/2021 [facility] DATE CREATED AUTHOR AUTHOR'S FERNANDAIZ ATGISELLE 07/26/2021 [facility] DATE CREATED AUTHOR AUTHOR'S ORGANIZ ATION 02/08/2023 Loop DATE CREATED AUTHOR AUTHOR'S ORGANIZ ATION 08/08/2023 Read Jorge Alberto [facility] DATE CREATED AUTHOR AUTHOR'S ORGANIZ ATION 12/29/2024 [facility] EPIC DATE CREATED AUTHOR AUTHOR'S ORGANIZ ATION 02/14/2025 [facility] REASON FOR VISIT (unrecogniz ed section and content) CONGESTION Care Teams (unrecognized sec tion and content) Team Status: Active Member Role Status Dates Services Family Health Primary Care Provider Active Team Status: Inactive Member Role Status Dates Services Family Health Primary Care Provider Active Manny Brooke DO Emergency Provider Active Team Status: Inactive Member Role Status Dates Services Family Health Primary Care Provider Active Mia Arrieta DO Emergency Provider Active Team Status: Active Member Role Status Dates Services Family Health Primary Care Provider Active Ashley Morales DO Emergency Provider Active Ramiro Castro MD Admit Provider, Attending Provider Active Team Status: Active Member Role Status Dates Services Family Health Primary Care Provider Active Mia Arrieta DO Emergency Provider Active Maurilio Hackett MD Admit Provider, Attending Ranjana romero Active Team Status: Inactive Member Role Status Dates Services Family Health Primary Care Provider Active Mia Arrieta DO Emergency Provider Active Maurilio Hackett MD Admit Provider, Attending Ranjana romero Active Team Status: Inactive Member Role Status Dates Services Family Health Primary Care Provider Active Start: December 29, 2023 End: December 29, 2023 Jose Márquez Jr, MD Emergency Provider Active Start: December 29, 2023 End: December 29, 2023 Team Status: Inactive Member Role Status Dates Services Family Health Primary Care Provider Active Start: February 17, 2024 End: February 18, 2024 David Nicole DO Emergency Provider Active Start: February 17, 2024 End: February 18, 2024 Team Status: Inactive Member Role Status Dates Services Family Health Primary Care Provider Active Start: June 09, 2024 End: June 09, 2024 Primitivo Cohen PA-C Emergency Provider Active Start: June 09, 2024 End: June 09, 2024 Supervisor Sleeping [employer] Department Relationship Specialty Start Date End Date Unallocated, Loraine Gallardo MD [address] [place] [address] PCP - General 04/17/23 Elmo Marshall DO [address] [place] [address] PCP - [facility] 04/04/24 08/03/99 Lorene Escalante DO [address] [place] [address] Referring Physician Emergency Medicine 10/30/24 Supervisor Sleeping [employer] Department Relationship Specialty Start Date End Date Unallocated, Noms Provider, [place] [address] PCP - General 04/17/23 Elmo Marshall DO [address] [address] PCP - [facility] 04/04/24 08/03/99 Lorene Escalante DO [address] [place] [address] Referring Physician Emergency Medicine 10/30/24 Team Status: Inactive Member Role Status Dates Services [facility] Primary Care Provider Active Start: January 09, 2025 End: January 09, 2025 Nic Whittaker APRN Emergency Provider Active Start: January 09, 2025 End: January 09, 2025 Goals (unrecognized section and content) Goals may be documented in a n alternate section FOR RECORDS PERTAINING TO PATIENTS WHO ARE OR HAVE BEEN ENROLLED IN A CHEMICAL DEPENDENCY/SUBSTANCEABUSE PROGRAM, SOME INFORMATION MAY BE OMITTED. This clinical summary was aggregated from multiple sources. Caution should be exercised in using it in the provision of clinical care. This summary normalizes information from multiple sources, and as a consequence, information in this document may materially change the coding, format and clinical context of patient data. In addition, data may be omitted in some cases. CLINICAL DECISIONS SHOULD BE BASED ON THE PRIMARY CLINICAL RECORDS. [facility] [employer] [facility]. provides no warranty or guarantee of the accuracy or completeness of information in this document.
--- OUTSIDE RECORDS SUMMARY | 2025-04-03 19:52 | XMS_ITS | Patient Health Record ---
Author Organization [facility] es Address [address] [place] [address] Care Team Providers Care Qc Manager Name Role Phone Halle Whitaker Primary Care Provider Rebeka Gregorio Unavailable [phone] Libby Smith Unavailable [phone] Kylee Noel Unavailable [phone] Allergies No Known Allergies Results Component Value Reference Range Notes Urine Drug Screen (Not yet r eviewed by provider) Interpretation:Positive Performing Lab: Notes/Report: Positive THC POS [place] NEG AMP NEG OPI NEG MAMP NEG PCP NEG BAR NEG BZO NEG MTO NEG MDMA NEG OXY NEG BUP NEG Reason For Referral Reason REFERRAL OVER 60 DAY S OLD Requesting a Derm office in [facility]. Cyst on chest, please evaluate and treat. Diagnosis 1 Skin cyst (L72.9) Referral Organization [facility] Referring Provider First Name Kylee Referring Provider Last Name Sadie Referring Provider Speciality Nurse Prac titioner Referred Provider Specialty Dermatology General Notes Cherelle Huff 2024 03:52:37 PM >[facility] [phone] Referral Priority Routine Medications Medication SIG (Take, Route, Frequency, Duration) Notes Start Date End Date Status Loratadine 10 MG TAKE 1 TABLET BY EVERY DAY; Duration: 90 Active tiZANidine HCl 4 MG 1 tablet at bedtime as needed Orally at bedtime; Duration: 90 days Active Fluticasone Propionate 50 MCG/ACT 1 spray in each nostril Nasally Once a day; Duration: 90 day(s) Active Omeprazole 40 MG TAKE 1 CAPSULE BY [facility] 30 MINUTES BEFORE MORNING MEAL EVERY DAY FOR 90 DAYS; Duration: 30 days Active Nexplanon Active hydrOXYzine Pamoate 25 MG 1 capsule Orally every 6 hours; Duration: 30 days As needed for anxiety 01/14/2023 Active Lexapro 10 MG 1 tablet Orally Once a day; Duration: 90 days 09/22/2024 Active QUEtiapine Fumarate 25 MG 1 tablet at be dtime Orally Once a day; Duration: 30 days 08/08/2023 Active lamoTRIgine 200 MG 1 tablet Orally Once a day; Duration: 30 days 12/24/2023 Active Immunizations Vaccine Route Administration Date Status Comme nts DTAP Unknown 06/01/2004 Administered [id number] (PEDIARIX) Unknown 2003 Administere d [id number] (PEDIARIX) Unknown 2003 Administere d Hib (ACTHIB) Unknown 2003 Administered Hib (ACTHIB) Unknown 2003 Administered Pneumococcal 13 Unknown 2003 Administered Pneumococcal 13 Unknown 2003 Administered Pneumococcal 13 Unknown 2003 Administered Polio, IPV Unknown 03/18/2008 Administered TDAP Unknown 04/03/2015 Administered Varicella (VARIVAX) Unknown 03/08/2005 Administered Varicella (VARIVAX) Unknown 09/08/2009 Administered MMR Unknown 09/08/2009 Administered MMR Unknown 03/18/2008 Administered MMR Unknown 02/10/2004 Administered MENINGOCOCCAL B Unknown 05/11/2020 Administered MENINGOCOCCAL B Unknown 03/07/2020 Administered Meningococcal (MENACTRA) Unknown 03/07/2020 Administere d Meningococcal (MENACTRA) Unknown 04/03/2015 Administere d Influenza 3+ PRIVATE Unknown 06/20/2021 Administered [facility] Influenza 3+ PRIVATE Unknown 05/11/2020 Administered Influenza 3+ PRIVATE Unknown 06/09/2018 Administered Influenza 3+ PRIVATE Unknown 06/08/2015 Administered Influenza 3+ PRIVATE Unknown 04/28/2013 Administered HPV Unknown 05/11/2020 Administered HPV Unknown 03/07/2020 Administered Hib (ACTHIB) Unknown 02/10/2004 Administered Hib (ACTHIB) Unknown 2003 Administered Hep B Peds/Adol Unknown 2003 Administered Hep A peds/adol Unknown 06/09/2018 Administered Hep A peds/adol Unknown 04/03/2015 Administered [id number]-WDO-[id number] (PEDIARIX) Unknown 2003 Administere d DTAP Unknown 03/18/2008 Administered Social History Tobacco Use: Social History Observation Description Date Details (start date - stop date) Never Smoker NA - NA Sexual Hx: Question Answer Notes Had sex in the last 12 months (vaginal, oral, or anal)? Yes with Men only Depression Screening (PHQ-9): Question Answer Notes Little interest or pleasure in doing things Not at all Feeling down, depressed, or hopeless Not at all Trouble falling or staying asleep, or sleeping t oo much Not at all Feeling tired or having little energy Not at all Poor appetite or overeating Not at all Feeling bad about yourself-o r that you are a failure or have let yourself or your family down Not at all Trouble concentrating on thi ngs, such as reading the newspaper or watching television Not at all Moving or speaking so slowly that other people could have noticed. Or the opposite being so fidgety or restless that you have been moving around a lot more than usual Not at all Thoughts that you would be b zander off , or of hurting yourself in some way Not at all Total Score 0 AUDIT-C (Standard) Question Answer Notes Did you have a drink containing alcohol in the p ast year? No Points 0 Interpretation Negative Tobacco Control (Standard) Question Answer Notes Tobacco use: Nonsmoker Problems Problem Type SNOMED Code ICD Code Onset Dates Problem Status W/U Status Risk Notes Problem Information temporarily unavailable Alcohol dependence, uncomplicated (F10.20) Active confirmed Problem Information temporarily unavailable Bipolar disorder, current episode mixed, mild (F31.61) Active confirmed Problem Information temporarily unavailable Seasonal allergies (J30.2) Active confirmed Problem Information temporarily unavailable Anxiety (F41.9) Active confirmed Problem Information temporarily unavailable Hypoglycemia (E16.2) Active confirmed Problem Information temporarily unavailable Alcohol abuse (F10.10) Active confirmed Problem Information temporarily unavailable GERD without esophagitis (K21.9) Active confirmed Problem Information temporarily unavailable Insomnia, unspecified type (G47.00) Active confirmed Problem Information temporarily unavailable BMI 38.0-38.9,adult (Z68.38) Active confirmed Problem Information temporarily unavailable Nexplanon insertion (Z30.017) Active confirmed Problem Information temporarily unavailable BMI 37.0-37.9, adult (Z68.37) Active confirmed Problem Information temporarily unavailable Anxiety disorder, unspecified (F41.9) Active confirmed Problem Information temporarily unavailable Severe obesity (BMI >= 40) (E66.01) Active confirmed Vital Signs Heart Rate 114 /min 09/22/2024 Temperature 98.6 degrees Fahrenheit 05/28/2024 Respiratory Rate 20 /min 05/28/2024 Blood pressure diastolic 83 mm Hg 09/22/2024 Oximetry 98 % 09/22/2024 Height 62.75 in 09/22/2024 Blood pressure systolic 114 mm Hg 09/22/2024 Weight 220 lbs 09/22/2024 BMI 39.28 kg/m2 09/22/2024 Encounters Encounter Location Date Provider Diagnosis [facility] [address] [place] [address] 05/27/2024 Rebeka Gregorio Bipolar disorder, current episode mixed, mild F31.61 [address] [place] [place] [address] 05/28/2024 Rebeka Gregorio Bipolar disorder, current episode mixed, mild F31.61 [facility] [address] [place] [address] 06/10/2024 [facility] [address] [place] [address] 08/31/2024 [address] [place] [address] 09/14/2024 [facility] [address] [place] [address] 10/11/2024 Halle Whitaker Alcohol dependence, uncomplicated F10.20 [facility] [address] [place] [address] 10/18/2024 Kylee Noel Anxiety disorder, unspecified F41.9 [facility] [address] [place] [address] 09/01/2024 Libby Smith [facility] [address] [place] [address] 09/01/2024 Libby Smith Anxiety F41.9 and Bipolar disorder, current episode mixed, mild F31.61 [facility] [address] [place] [address] 09/16/2024 Halle Whitaker [facility] [address] [place] [address] 01/13/2025 Halle Whitaker Bipolar disorder, current episode mixed, mild F31.61 and Anxiety disorder, unspecified F41.9 [facility] [address] [place] [address] 05/28/2024 Kylee Raphaelrrpatricia Muscle spasm M62.838 and Bipolar disorder, current episode mixed, mild F31.61 [facility] [address] [place] [address] 08/26/2024 Kylee Raphaelrray control counseling Z30.09 and Skin cyst L72.9 [facility] [address] [place] [address] 09/16/2024 Libby Smith Bipolar disorder, current episode mixed, mild F31.61 and Alcohol abuse F10.10 [facility] [address] [place] [address] 09/22/2024 Halle Whitaker Alcohol dependence, uncomplicated F10.20 and Anxiety disorder, unspecified F41.9 Assessments Encounter Date Diagnosis (ICD Code) Assessment Notes Treatment Notes Treatment Clinical Notes Section Notes 05/28/2024 Muscle spasm (ICD-10 - M62.838) Will trial tizanidine at bedtime PRN. Discussed risks and side effects of medication. Discussed red flag symptoms. Follow up if symptoms worsen or fail to improve. Patient verbalized understanding. 08/26/2024 control counseling (ICD-10 - Z30.09) Will check with insurance on getting nexplanon removed and replaced. Patient reports she has started having periods and cramps again. 09/16/2024 Bipolar disorder, current episode mixed, mild (ICD-10 - F31.61) Recommended treatment for Bipolar disorder includes FDA approved and OFF label medications: second generation antipsychotics and mood stabilizers. Discussed life threatening side effect of Lamotrigine. Pt is to monitor for new skin rashes or sensation of a sunburn or itchiness or redness, mouth sores or sores in mucus membranes, and call provider immediately and or go to ER, and stop the medication. Second generation antipsychotic medications can cause headache, drowsiness, agitation, dizziness, nausea, or extrapyramidal symptoms such as tremors, muscle spasms, slowness of movement or jerking of muscles. The patient verbalizes understanding with all questions answered thoroughly and is in agreement with treatment plan. Continue current treatment. Patient would like referral for MAT at [facility]. . Call for problems . GOALS: . Maintain medication regimen _Improve mood stability _Improve anxiety control _Improve social and interpersonal functioning Patient/Guardian will call sooner if symptoms worsen. Patient understands to go to ER if needed if symptoms become severe. Crisis Intervention plan was discussed and agreed upon. Patient/Guardian will call 911 in case of emergency. Emergency contact information was provided to the patient/guardian. follow up 3 months Pharmacological management: . Alternative medication plans were discussed with the patient/guardian. All relevant side effects and potential adverse effects were discussed with the patient/guardian. Standard cautions and potential benefits were discussed. Patient/Guardian consented to the start/continuation of the treatment. 09/01/2024 Anxiety (ICD-10 - F41.9) 05/28/2024 Bipolar disorder, current episode mixed, mild (ICD-10 - F31.61) 05/27/2024 Bipolar disorder, current episode mixed, mild (ICD-10 - F31.61) 09/16/2024 Alcohol abuse (ICD-10 - F10.10) 10/11/2024 Alcohol dependence, uncomplicated (ICD-10 - F10.20) 10/18/2024 Anxiety disorder, unspecified (ICD-10 - F41.9) 01/13/2025 Bipolar disorder, current episode mixed, mild (ICD-10 - F31.61) 09/22/2024 Alcohol dependence, uncomplicated (ICD-10 - F10.20) AUD: a chronic disease process with high likelihood of complication, including , even when in a stable state. Disease requiring ongoing medication management and evaluation Medical: denies needs MH: Lexapro 10mg Daily prescribed Tobacco: declined smoking cessation Reviewed diversion control: no selling, trading or sharing medication OARRS: reviewed Medication: Vivitrol 380mg injection prescribed RTC 4 weeks 08/26/2024 Skin cyst (ICD-10 - L72.9) Will place referral to Dermatology in [facility] for further evaluation & management. Patient in agreement with plan. 05/28/2024 Bipolar disorder, current episode mixed, mild (ICD-10 - F31.61) Refills and appts will need to be addressed by provider. Patient verbalized understanding. 09/01/2024 Bipolar disorder, current episode mixed, mild (ICD-10 - F31.61) 09/22/2024 Anxiety disorder, unspecified (ICD-10 - F41.9) Will restart patient on Lexapro 10mg QD today. Discussed risks and side effects of medication including possible nausea, headache, upset stomach, diarrhea, constipation, anxiety, irritability, and sexual dysfunction. Most mild side effects improve over 4-6 weeks of use. Please monitor for worsening of symptoms, especially suicidal ideations or morbid thoughts, and call office and or go to the emergency department immediately if this occurs. Patient verbalized understanding, in agreement with plan. 01/13/2025 Anxiety disorder, unspecified (ICD-10 - F41.9) 05/28/2024 Other Body Mass Index : Care Instructions material was printed 09/22/2024 Other Visit conducted by HIPAA-compliant with zoom video telemedicine/in person Patient identified with name and date of Plan Of Treatment Pending Test Test Name Order Date XR lumbar spine 6V w bending 03/23/2024 Urine Drug Screen 09/22/2024 Future Test Test Name Order Date Urine Drug Screen 09/22/2024 Insurance Providers Payer Name Payer Address Payer Phone Subscriber Number Group Number Insured Name Patient Relationship to Insured Coverage Start Date Coverage End Date [facility] [address] [place] [address] [id number] GUERDA MULLER Self - patient is the insured 4 ANTHEM Primary [address] [place] [address] [id number] MARCIA MULLER Child - Insured does not have Financial Responsibility (includes legally adopted child) 1 1 Ruben ROBIN- jamie 09/03/22 [address] [place] [address] [id number] GUERDA MULLER Self - patient is the insured 1 3 z MEDICAID MERGED WITH [facility] after [place]- termed 09/03/22 [address] [place] [address] [id number] GUERDA MULLER Self - patient is the insured 1 3 Richa [facility]- ermed 09/03/22. [address] [place] [address] [id number] GUERDA MULLER Self - patient is the insured 2 3 zMEDICAI D MERGED WITH [facility] after [place]- termed 09/03/22 [address] [place] [address] [id number] GUERDA MULLER Self - patient is the insured 2 3 [employer] [place] [employer] [address] [place] [address] [id number] GUERDA MULLER Self - patient is the insured 3 4 [employer] [facility] [address] [place] [address] [id number] GUERDA MULLER Self - patient is the insured 3 4 [employer] [place] [employer] [address] [place] [address] [id number] GUERDA MULLER Self - patient is the insured 3 3 [facility] [address] [place] [address] [id number] GUERDA MULLER Self - patient is the insured 3 3 [facility] [address] [address] [place] [address] [phone] [id number] GUEDRA MULLER Self - patient is the insured 3 4 [employer] [place] [address] [place] [address] [phone] [id number] GUERDA MULLER Self - patient is the insured 3 4 [employer] [address] [address] [place] [address] [phone] [id number] GUERDA MULLER Self - patient is the insured 4 4 [employer] [address] [place] [address] [id number] GUERDA MULLER Self - patient is the insured 4 4 Medical (General) History Medical History History ICD Code BIPOLAR pcos Esophageal reflux anxiety insomnia seasonal allergies Surgical History Surgery Date(Month/Year) Control insertion Hospitalization History Reason Date(Month/Year) 1 SOUTH 06/16/[address] 5-23
--- OUTSIDE RECORDS SUMMARY | 2025-04-03 19:52 | XMS_ITS | Clinical Summary ---
Author Organization [facility] Address [address], [address] [place] [address] Care Team Providers Care Venetian Blind Cleaner And Repairer Name Role Phone Unavailable Primary Care Provider Unavailabl e Social History Tobacco Use Types Packs/Day Years Used Date Smoking Tobacco: Never Assessed Comments Unknown Sex and Gender Information Value Date Recorded Sex Assigned at Not on file Legal Sex Female 2:39 PM EDT Gender Identity Not on file Sexual Orientation Not on file Plan of Treatment Health Maintenance Due Date Last Done Comments Depression Screen 2015 Varicella vaccine (1 of 2 - 13+ 2-dose series) 02/24/2016 HIV screen 2018 HPV vaccine (1 - 3-dose series) 2018 Chlamydia/GC screen 2019 Meningococcal B vaccine (1 o f 2 - Standard) 2019 Hepatitis C screen 2021 DTaP/Tdap/Td vaccine (1 - Tdap) 2022 Hepatitis B vaccine (1 of 3 - 19+ 3-dose series) 2022 Pap smear 02/24/2024 COVID-19 Vaccine (1 - 2023-2 5 season) 2024 Flu vaccine (#1) 03/04/2025 Hepatitis A vaccine Aged Out No longe r eligible based on patient's age to complete this topic Hib vaccine Aged Out No longer eligi ble based on patient's age to complete this topic Meningococcal (ACWY) vaccine Aged Out No longer eligible based on patient's age to complete this topic Pneumococcal 0-49 years Vaccine Aged Out No longer eligible based on patient's age to complete this topic Polio vaccine Aged Out No longer elig ible based on patient's age to complete this topic Insurance [employer]
--- OUTSIDE RECORDS SUMMARY | 2025-04-03 19:52 | XMS_ITS | Clinical Summary ---
Author Organization [facility] Address [address] [place] [address] Care Team Providers Care Transfer And Pumphouse Operator Name Role Phone Unallocated, Noms Provider Primary Care Provi dominic Elmo Marshall DO Unavailable [phone] Lorene Segovia DO Unavailable [phone] Allergies No known active allergies Medications escitalopram (Lexapro) 20 MG tablet TAKE 1 TABLET BY MOUTH EVERY DAY FOR 30 DAYS Active LaMICtal 200 MG tablet 1 (one) time each day at the same time. Active albuterol HFA 90 mcg/act inhalerIndicati ons:COVID-19 Inhale 2 puffs every 4 (four) hours if needed for wheezing. 18 g 11 3 Active Additional Information Patient not taking.Reported on 12/22/2024 QUEtiapine (SEROquel) 50 MG tablet TAKE 2 TABLETS BY MOUTH AT BEDTIME Oral for 90 Active Social History Tobacco Use Types Packs/Day Years Used Date Smoking Tobacco: Never Assessed Comments Unknown Sex and Gender Information Value Date Recorded Sex Assigned at Not on file Legal Sex Female 7:18 PM EDT Gender Identity Not on file Sexual Orientation Not on file Last Filed Vital Signs Vital Sign Reading Time Taken Comments Blood Pressure 120/78 12/22/2024 10:58 AM EDT Pulse 85 12/22/2024 10:58 AM EDT Temperature 36.5 C (97.7 F) 12/22/2024 10:58 AM EDT Respiratory Rate - - Oxygen Saturation 98% 12/22/2024 10:58 AM EDT Inhaled Oxygen Concentration - - Weight 109 kg (240 lb) 12/22/2024 10:58 AM EDT Height 160 cm (5' 3 ) 01/15/2021 12:00 PM EDT Body Mass Index - - Plan of Treatment Health Maintenance Due Date Last Done Comments Influenza Vaccine (#1) 2025 3, 06/20/2021, 05/11/2020, Additional history exists Insurance [employer] Care Teams Transfer And Pumphouse Operator Relationship Specialty Start Date End Date Unallocated, Noms Provider, [address] [place], [place] [id number] PCP - General 04/17/23 Elmo Marshall DO [address] [place] [address] PCP - Medical [place] [employer] 04/04/24 08/03/99 Lorene Segovia DO [address] [place] [address] Referring Physician Emergency Medicine 10/30/24
--- OUTSIDE RECORDS SUMMARY | 2025-04-03 19:52 | XMS_ITS | Clinical Summary ---
Author Organization [facility] Address [facility] [id number] [address] [place] [address] Care Team Providers Care Elevator Constructor Supervisor Name Role Phone No Pcp, No Pcp Primary Care Provider Unavailabl e Allergies No known active allergies Medications etonogestrel (NEXPLANON) 68 mg implant 68 mg by subdermal route once. Active lamoTRIgine (LaMICtal) 100 mg tablet Take 100 mg by mouth daily. Active QUEtiapine (SEROquel) 50 mg tablet Take 50 mg by mouth nightly. Active Active Problems No known active problems Family History Medical History Relation Name Comments No Known Problems Father Cancer Maternal Grandfather lung Colon cancer Maternal Grandmother Hypertension Maternal Grandmother No Known Problems Mother Relation Name Status Comments Father Maternal Grandfather Maternal Grandmother Mother Social History Tobacco Use Types Packs/Day Years Used Date Smoking Tobacco: Never Smokeless Tobacco: Never Alcohol Use Standard Drinks/Week Comments No 0 (1 standard drink = 0.6 oz pur e alcohol) AUDIT-C Answer Date Recorded Frequency of Alcohol Consumption Never 08/07/2018 Average Number of Drinks Not on file 019 Frequency of Binge Drinking Not on file 11/2018 Childcare Answer Date Recorded Childcare Unknown 01/07/2019 Employment Answer Date Recorded Employment Unknown 01/07/2019 Purpose - Life Answer Date Recorded Purpose and direction in life Unknown Comments No Sex and Gender Information Value Date Recorded Sex Assigned at Not on file Legal Sex Female 2:33 PM EST Gender Identity Not on file Sexual Orientation Not on file Last Filed Vital Signs Vital Sign Reading Time Taken Comments Blood Pressure 118/80 06/26/2021 11:08 AM EST Pulse 82 06/26/2021 11:08 AM EST Temperature 37.2 C (98.9 F) 11/20/2018 7:00 PM EDT Respiratory Rate 16 06/26/2021 11:08 AM EST Oxygen Saturation 97% 11/20/2018 7:00 PM EDT Inhaled Oxygen Concentration - - Weight 98.4 kg (217 lb) 06/26/2021 11:08 AM EST Height 157.5 cm (5' 2 ) 06/26/2021 11:08 AM EST Body Mass Index 39.69 06/26/2021 11:08 AM EST Plan of Treatment Health Maintenance Due Date Last Done Comments Depression Screening 2015 Tobacco Screening 2015 Adult BMI Screening 2021 DTaP,Tdap and Td Vaccines (1 - Tdap) 2022 Pap Smear 02/24/2024 COVID-19 Vaccine (3 - 2023- season) 2024, 11/01/2020 Influenza Vaccine 04/04/2025 06/20/2021, 05/08/2020 Medical Devices Not on file Insurance [employer] Care Teams Elevator Constructor Supervisor Relationship Specialty Start Date End Date No Pcp, No Pcp D[facility] Nicole [id number] PCP - General Family Medicine 11/20/18
--- OUTSIDE RECORDS SUMMARY | 2025-04-03 19:52 | XMS_ITS | Encounter Summary ---
Author Organization [facility] Address [address] [place] [address] Care Team Providers Care Railway Traction Line Worker Name Role Phone Unallocated, Noms Provider Primary Care Provi dominic Elmo Marshall DO Unavailable [phone] Lorene Segovia DO Unavailable [phone] Encounter Details Date Type Department Care Team (Late st Contact Info) Description 12/23/2024 Results Follow-Up [facility] [address] [place] [id number] Yamel Hampton MA URINALYSIS ANALYZER TEST, URINARY TRACT INFECTION (HTRX) Social History Tobacco Use Types Packs/Day Years Used Date Smoking Tobacco: Never Assessed Comments Unknown Sex and Gender Information Value Date Recorded Sex Assigned at Not on file Legal Sex Female 7:18 PM EDT Gender Identity Not on file Sexual Orientation Not on file documented as of this encounter Miscellaneous Notes * Telephone Encounter - Yamel Hampton MA - 12/23/2024 9:[address] Marshall, the Urine culture was negative, take meds as directed, and follow up with PCP. documented in this encounter Plan of Treatment Not on file documented as of this encounter Visit Diagnoses Not on filedocumented in this encounter Care Teams Railway Traction Line Worker Relationship Specialty Start Date End Date Unallocated, [place] [address] PCP - General 04/17/23 Elmo Marshall DO [address] [id number] [place] [address] PCP - Medical [place] [employer] 04/04/24 08/03/99 Lorene Segovia DO [address] [place] [address] Referring Physician Emergency Medicine 10/30/24 documented as of this encounter
--- NOTE | 2025-04-03 19:58 | ED.URI1 ---
HPI - URI/Sore Throat General Chief Complaint: Upper Respiratory Infection Stated Complaint: Upper Respiratory Infection Time Seen by Provider: 04/03/25 19:55 Source: patient History of Present Illness HPI Narrative: ill the past week with cough. occ productive of phlegm. Now has pain right back when she coughs and she feels nauseated. not short of breath. No abdominal pain Related Data Home Medications ?Medication ?Instructions ?Recorded ?Confirmed escitalopram oxalate 20 mg tablet 20 mg PO DAILY 06/21/24 06/21/24 (Lexapro) lamotrigine 200 mg tablet 200 mg PO DAILY 06/21/24 06/21/24 (Lamictal) methocarbamol 750 mg tablet mg 06/21/24 quetiapine 50 mg tablet (Seroquel) 50 mg PO DAILY 06/21/24 06/21/24 Previous Rx's ?Medication ?Instructions ?Recorded methocarbamol 500 mg tablet 500 mg PO Q8H PRN pain #20 tabs 06/21/24 Allergies Allergy/AdvReac Type Severity Reaction Status Date / Time No Known Drug Allergies Allergy Verified 06/21/24 15:30 Review of Systems ROS Status of ROS 10 or more systems reviewed and unremarkable except as noted in history and below PFSH PFSH Social History Little interest or pleasure in doing things: not at all Feeling down, depressed, or hopeless: not at all Exam Constitutional Vital Signs, click to edit/add: Last Vital Signs Temp 99.5 F 04/03/25 19:44 Pulse 82 04/03/25 19:44 Resp 18 04/03/25 19:44 BP 121/91 04/03/25 19:44 Pulse Ox 96 04/03/25 19:49 O2 Del Method Room Air 04/03/25 19:49 Common normals: no apparent distress, average body habitus, oriented x3, no limitations, healthy appearing, alert and well nourished [facility] Common normals: normocephalic and head/scalp atraumatic Eye Common normals: EOMs intact bilaterally and conjunctivae normal Chest Other: right pos. chest wall mildly tender Respiratory Common normals: normal respiratory effort, no retractions, no use of accessory muscles and clear to auscultation bilaterally Cardio Common normals: regular rate, regular rhythm, S1 normal heart sound and S2 normal heart sound GI Common normals: Normal to inspection, nondistended, normoactive bowel sounds present, soft to palpation and non-tender Extremity Common normals: normal to inspection and full ROM Neuro Common normals: oriented x3, CN's II-XII intact bilaterally and moves all extremities Psych Appearance: grossly normal Course Vital Signs Vital signs: Vital Signs Temperature 99.5 F 04/03/25 19:44 Pulse Rate 82 04/03/25 19:44 Respiratory Rate 18 04/03/25 19:44 Blood Pressure 121/91 04/03/25 19:44 Pulse Oximetry 96 04/03/25 19:44 Oxygen Delivery Method Room Air 04/03/25 19:44 Temperature 99.5 F 04/03/25 19:44 Pulse Rate 82 04/03/25 19:44 Respiratory Rate 18 04/03/25 19:44 Blood Pressure 121/91 04/03/25 19:44 Pulse Oximetry 96 04/03/25 19:49 Oxygen Delivery Method Room Air 04/03/25 19:49 MDM - URI/Sore Throat MDM Narrative Medical decision making narrative: patient presents with a cough and back pain from coughing. cough productive of phlegm. She has a low grade fever. Does not smoke cigarettes but does vape. cxray without evidence of pneumonia. WBC normal. given dose of toradol for her musculoskeletal back pain and advised to use OTC ibuprofen or similar. Prescribed zpak for bronchitis/fever Lab Data Labs: Lab Results 04/03/25 Range/Units 20:35 WBC 12.3 H (4.0-11.0) 10^3/uL RBC 5.16 (4.20-5.40) 10^6/uL Hgb 14.4 (12.0-16.0) g/dL Hct 42.9 (36.0-48.0) % MCV 83.1 (81.0-99.0) fL MCH 27.9 (26.7-34.0) pg MCHC 33.6 (29.9-35.2) g/dL RDW 13.3 (11.0-15.0) % Plt Count 172 (150-450) 10^3/uL MPV 11.3 (9.5-13.5) fL Neut % (Auto) 63.0 (43.0-75.0) % Lymph % (Auto) 26.5 (20.5-60.0) % [place] % (Auto) 6.2 (1.7-12.0) % Eos % (Auto) 3.6 (0.9-7.0) % Baso % (Auto) 0.5 (0.2-2.0) % Neut # (Auto) 7.8 H (1.4-6.5) 10^3/uL Lymph # (Auto) 3.3 (1.2-3.8) 10^3/uL [place] # (Auto) 0.8 (0.3-0.8) 10^3/uL Eos # (Auto) 0.4 (0.0-0.7) 10^3/uL Baso # (Auto) 0.1 (0.0-0.1) 10^3/uL Abs Immat Gran (auto) 0.03 (0.00-0.03) 10^3/uL Imm/Tot Granulo (auto) 0.2 (0.0-0.5) % Sodium 139 (136-145) mmol/L Potassium 3.6 (3.5-5.1) mmol/L Chloride 103 (98-107) mmol/L Carbon Dioxide 26.3 (21.0-32.0) mmol/L Anion Gap 13.3 BUN 9.0 (7.0-18.0) mg/dL Creatinine 0.72 (0.55-1.02) mg/dL Est GFR ( Amer) >60 (>=60 mL/min/1.73m^2) Est GFR (Non-Af Amer) >60 (>=60 mL/min/1.73m^2) BUN/Creatinine Ratio 12.5 Glucose 80 (74-106) mg/dL Calcium 9.2 (8.5-10.1) mg/dL Serum HCG, Qual Negative (NEGATIVE) Discharge Plan Discharge Chief Complaint: Upper Respiratory Infection Clinical Impression: Bronchitis, Back pain, thoracic Patient Disposition: Home, Self-Care Prescriptions / Home Meds: No Action quetiapine [Seroquel] 50 mg tablet 50 mg PO DAILY escitalopram oxalate [Lexapro] 20 mg tablet 20 mg PO DAILY lamotrigine [Lamictal] 200 mg tablet 200 mg PO DAILY methocarbamol 750 mg tablet methocarbamol 500 mg tablet 500 mg PO Q8H PRN (Reason: pain) Qty: 20 0RF Print Language: Gambian Instructions: Acute Bronchitis (ED), Back Pain (ED) Additional Instructions: use ibuprofen or similar for back pain and follow up with your doctor next week for recheck Referrals: Kylee Segovia NP [Primary Care Provider] - 1 week
[2025-04-03 20:40] LABS: Hematocrit 42.9 % (36.0-48.0); Hemoglobin 14.4 g/dL (12.0-16.0); Immature Granulocytes Abs Auto 0.03 10^3/uL (0.00-0.03); Immature Granulocytes Pct Auto 0.2 % (0.0-0.5); Lymphocytes Absolute Auto 3.3 10^3/uL (1.2-3.8); Mean Corpuscular HGB Conc 33.6 g/dL (29.9-35.2); Mean Corpuscular Hemoglobin 27.9 pg (26.7-34.0); Mean Corpuscular Volume 83.1 fL (81.0-99.0); Platelet Count 172 10^3/uL (150-450); Red Blood Count 5.16 10^6/uL (4.20-5.40); White Blood Count 12.3 10^3/uL (4.0-11.0)
[2025-04-03 20:52] LABS: Anion Gap 13.3; Blood Urea Nitrogen 9.0 mg/dL (7.0-18.0); Calcium 9.2 mg/dL (8.5-10.1); Carbon Dioxide 26.3 mmol/L (21.0-32.0); Chloride 103 mmol/L (98-107); Estimated GFR (African America >60 (>=60 mL/min/1.73m^2); Estimated GFR (Non-African Ame >60 (>=60 mL/min/1.73m^2); Glucose 80 mg/dL (74-106); Potassium 3.6 mmol/L (3.5-5.1); Sodium 139 mmol/L (136-145)
[2025-04-03] MEDS: KETOROLAC TROMETHAMINE 60 MG/2 ML VIAL IM (21:50)
[2025-04-03] MEDS: ONDANSETRON 4 MG RAPDIS TABLET SL (21:50)
== END 2025-04-03 22:01 | disposition home or self-care (01) ==
PROVIDERS: Emergency Provider Internal Medicine; PCP Nurse Practitioner Family
DX: J40 Bronchitis, not specified as acute or chronic (principal); M54.6 Pain in thoracic spine; R50.9 Fever, unspecified
CPT/HCPCS: 36415; 71046; 80048; 84703; 85025; 96372; 99285; J1885; Q0162